=== PATIENT | female | born 1960 | race Caucasian/White ===

== ENCOUNTER 2019-11-11 12:40 | Outpatient (CLI) | payer SELFPAY ==
--- NOTE | 2019-11-11 12:49 | MR_ITS ---
WS: [id number] MRI right elbow, noncontrast. HISTORY: Pain RIGHT upper arm. Injury 4 years ago. COMPARISON: RIGHT elbow radiograph 10/22/2012. Multiplanar, multisequence imaging is performed of the RIGHT elbow. No marrow signal abnormalities are identified. No significant joint space narrowing. There is a very tiny amount of increased signal in the distal brachialis muscle and tendon at the ulnar tubercle. No complete tear. There is no joint effusion. No muscle atrophy or edema. MR/MR elbow RT wo con* [id number] IMPRESSION: Very mild brachialis tendinitis. No marrow edema or fracture.
== END 2019-11-11 12:41 | disposition home or self-care (01) ==
LOC: RADWPI 12:45
PROVIDERS: Family Provider Family Medicine; PCP Nurse Practitioner Family; Visit Provider Nurse Practitioner Family
DX: M79.621 Pain in right upper arm (principal); M77.8 Other enthesopathies, not elsewhere classified
CPT/HCPCS: 73221

== ENCOUNTER → 2020-01-16 11:45 | Outpatient (BNVA) | payer SELFPAY | PROVIDERS: Family Provider Family Medicine; PCP Nurse Practitioner Family; Visit Provider Nurse Practitioner | DX: M54.9 Dorsalgia, unspecified (principal); R31.9 Hematuria, unspecified | CPT/HCPCS: 80053; 81000 ==

== ENCOUNTER → 2020-04-18 11:07 | Outpatient (BNVA) | payer SELFPAY | PROVIDERS: Family Provider Family Medicine; PCP Nurse Practitioner Family; Visit Provider Family Medicine | DX: I10 Essential (primary) hypertension (principal); R53.83 Other fatigue | CPT/HCPCS: 80053; 80061; 82607; 82652; 84443; 85025 ==

== ENCOUNTER 2020-06-19 00:44 | Inpatient (IN) | payer MEDICAID, SELFPAY ==
[2020-06-19] VITALS (69 sets, daily range): BP systolic 75–110; BP diastolic 45–85; PULSE 16–116; RESP 16–99; TEMP 36.4–37.2; O2SAT 84–98; BMI 22.4
--- NOTE | 2020-06-19 01:10 | ECG_ITS ---
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 Measurements Intervals [place] Rate: 108 P: 56 [place]: 146 QRS: -40 QRSD: 155 T: 100 QT: 394 QTc: 530 Interpretive Statements SINUS TACHYCARDIA POSSIBLE LEFT ATRIAL ENLARGEMENT [-0.1mV P WAVE IN V1/V2] LEFT AXIS DEVIATION [QRS AXIS < -30] LEFT BUNDLE BRANCH BLOCK [120+ ms QRS DURATION, 80+ ms Q/S IN V1/V2, 85+ ms R IN I/aVL/V5/V6] No previous ECG available for comparison Electronically Signed On 06-19-2020 13:31:02 CDT by Doroteo Kelly M.D. [email or web address] [email or web address] [email or web address].[email or web address]/[id number] f
--- NOTE | 2020-06-19 01:10 | XR_ITS ---
WS: [id number] EXAM: AP CHEST: PORTABLE UPRIGHT DATE OF EXAM: 06/19/2020, 0120 hours COMPARISON: Chest x-ray from 12/14/2014. HISTORY: Patient is 59 years old with hysterectomy 2 weeks ago. Complaining of swelling in the legs with short ness of breath. FINDINGS: The cardiac silhouette is hard to determine secondary to basilar infiltrates. Silhouette appears nahomy ewhat enlarged as compared to prior imaging. How much of this has to do with AP technique is uncertai n. The mediastinal contours are normal. The pulmonary vascularity is normal. There are findings of a moderate right pleural effusion with infiltrate/atelectasis right lung base. Some minimal infilt rate/atelectasis left lung base with trace left effusion. No pneumothorax. No acute bony abnormalit y is seen. XR/XR chest 1V portable [id number] IMPRESSION: Interval development of moderate right pleural effusion with right base infiltr ate/compression atelectasis. Some minimal infiltrate/atelectasis left lung base. Interval enlargement of the cardiac silhouette. Question if related to techniqu e versus true enlargement. PA and lateral imaging recommended. If the silhouett e remains enlarged echocardiogram will be recommended to evaluate for possible pericardial effusion.
--- NOTE | 2020-06-19 01:13 | W.ED.GENADLT ---
Documented by User: COREY Epperson 06/19/20 02:56 HPI - General Adult General: Chief complaint: General Medical Stated complaint: swelling in legs Time Seen by Provider: 06/19/20 01:08 History of Present Illness: HPI narrative: Patient is a 59-year-old female who comes to the ED with shortness of breath and bilateral leg edema. Patient has a past medical history of hypertension, pedal edema, constipation and GERD. Patient says lower leg edema and shortness of breath symptoms started approximately 2 weeks ago. She reports feeling chest pain shortness of breath whenever she exerts herself and gets up and moves around. She does not have any chest pain or shortness of breath while sitting. She does endorse feeling shortness of breath when she is laying flat. Edema in the legs has progressed and gotten worse and now she is complaining of having pain in the both right and left lower extremities. She endorses having a loss of appetite and says she has had about a 10 pound weight loss over the past 2 weeks. She is also had some abdominal pain and nausea that has since resolved. Patient feels like she drinks a lot o water throughout the day and feels like she does not urinate that much out. Denies any fever or chills. Patient says she was recently tested for COVID and the test was negative. Associated symptoms: Reports chest pain (on exertion) and dyspnea (On exertion); Deny headache(s), nausea, rash, palpitations or vomiting Review of Systems Const: Reports: change in weight (Patient states she has lost 10 pounds in the last 2 weeks.); Denies: fever(s), chills or fatigue Eyes: Denies: change in vision or eye discomfort ENMT: Denies: throat pain, odynophagia, nasal discharge or nasal congestion Card: Reports: chest pain (on exertion), edema, swelling of feet/ankles, dyspnea on exertion, orthopnea and leg pain with exertion; Denies: palpitations Resp: Reports: dyspnea (On exertion); Denies: productive cough or non-productive cough GI: Denies: abdominal pain, nausea, vomiting, diarrhea, constipation or hematochezia : Denies: flank pain, dysuria or hematuria Musc: Reports: extremity swelling (Bilateral leg swelling.); Denies: neck pain or back pain Skin/Breast: Denies: rash or new lesions Neuro: Denies: headache(s), numbness in extremities or weakness in extremities PFSH ED PFSH: Medical History Chronic GERD H/O pleurisy Hypertension Surgical History H/O: hysterectomy Family History Mother Cancer Hypertension Diabetes Father Hypertension Diabetes Social History Smoking and tobacco status: former smoker Second hand smoke exposure: Yes Alcohol intake: never Physical Exam Const: COMMON NORMALS: patient oriented x3 and alert GENERAL APPEARANCE: cooperative and anxious HENMT: COMMON NORMALS: normocephalic HEAD & SCALP: normocephalic MOUTH: Normal oral and palatal mucosa present THROAT: posterior oropharynx normal and uvula midline Eye: COMMON NORMALS: Equal, round and reactive pupils present PUPIL: Yes Equal, round and reactive pupils present Neck/C-Spine: COMMON NORMALS: supple GENERAL: Yes normal visual inspection Resp: COMMON NORMALS: normal respiratory effort, No retractions and No use of accessory muscles AUSCULTATION: breath sounds absent on the right (base) OTHER: Absent breath sounds in lower right lobe of the lung. All other lung high were clear to auscultation bilaterally. Cardio: COMMON NORMALS: regular rhythm, S1 normal heart sound present, S2 normal heart sound present, No gallops present (Cardio), No clicks present (Cardio), No murmurs present (Cardio) and Peripheral pulses 2+ throughout RATE: tachycardic RHYTHM: regular rhythm HEART SOUNDS: S1 normal heart sound present and S2 normal heart sound present PERIPHERAL PULSES: Peripheral pulses 2+ throughout GI: COMMON NORMALS: Normal to inspection, nondistended, normoactive bowel sounds present, Soft to palpation, non-tender and no masses PALPATION: Yes Soft to palpation : COMMON NORMALS: Yes no CVA tenderness BLADDER/KIDNEY EXAM: Yes no CVA tenderness Back/Pelvis: COMMON NORMALS: no CVA tenderness Extremity: NARRATIVE EXTREMITY EXAM: Patient also has tenderness to palpation around the ankle and lower leg bilaterally. Pedal pulse 2+. GENERAL: Yes edema (Bilateral 1+ pitting edema starts at about the foot and goes all the way up to just below the knee on both lower extremities.) Neuro: COMMON NORMALS: patient oriented x3 and moves all extremities SENSORIUM/ORIENTATION: Yes alert Skin: COMMON NORMALS: no rashes or lesions noted GENERAL SKIN EXAM: no rashes or lesions noted and dry skin Course Vital Signs: Vital signs: Vital Signs Temperature 98.1 F 06/19/20 00:56 Pulse Rate 96 06/19/20 02:53 Respiratory Rate 22 H 06/19/20 02:53 Blood Pressure 98/69 06/19/20 02:53 Pulse Oximetry 94 06/19/20 02:53 MDM - General Adult MDM Narrative: Medical decision making narrative: I performed the initial history and physical exam and work-up for patient. I am handing patient care over to Dr. Virk and he will be taking over management and care plan of patient. Lab Data: Attestation: I reviewed the patient's lab results. Labs: Lab Results 06/19/20 06/19/20 06/19/20 Range/Units 01:30 01:30 01:30 WBC 9.0 (4.0-10.0) 10^3/ uL RBC 5.33 H (4.1-5.3) 10^6/u L Hgb 13.7 (11.5-15.3) g/dL Hct 43.5 (37.0-47.0) % MCV 81.6 (81-99) fL MCH 25.7 L (28.0-34.0) pg MCHC 31.5 (30.0-36.0) g/dL RDW 18.4 H (12.1-15.1) % Plt Count 225 (130-400) 10^3/c mm MPV 11.0 H (7.4-10.4) fL Neut % (Auto) 65.7 % Lymph % (Auto) 26.7 % [place] % (Auto) 6.4 % Eos % (Auto) 0.4 % Baso % (Auto) 0.6 % Neut # (Auto) 5.89 (1.8-7.7) 10^3/u L Lymph # (Auto) 2.4 (0.8-4.8) 10^3/u L [place] # (Auto) 0.6 (0.2-0.9) 10^3/u L Eos # (Auto) 0.0 (0.0-0.8) 10^3/u L Baso # (Auto) 0.1 (0.0-0.1) 10^3/u L Nucleated RBC % (a uto) 0 % Nucleated RBCs # 0.0 /100WBC D-Dimer (0-0.59) ug/mIFE U Sodium 136 (136-145) mmol/L Potassium 4.5 (3.5-5.1) mmol/L Chloride 101 (98-107) mmol/L Carbon Dioxide 20 L (22-29) mmol/L Anion Gap 19.5 H (5-19) BUN 27 H (6-20) mg/dL Creatinine 0.9 (0.5-0.9) mg/dL GFR Calculation 64.1 L (90-130) mL/min Glucose 133 H (65-115) mg/dL Calculated Osmolal ity 281 L (285-295) mOsm/k g Calcium 8.9 (8.5-10.5) mg/dL Total Bilirubin 1.2 (0.15-1.2) mg/dL AST 36 H (0-32) U/L ALT 31 (0-33) U/L Alkaline Phosphata se 54 (35-105) IU/L Troponin T Baselin e 28 H (0-10) ng/L NT-Pro-B Natriuret Pep 50140 H (0-125) pg/mL Total Protein 7.0 (6.6-8.7) g/dL Albumin 4.3 (3.5-5.2) g/dL Globulin 2.7 (1.3-4.6) g/dL Lipase 16 (13-60) U/L 06/19/20 Range/Units 01:30 WBC (4.0-10.0) 10^3/ uL RBC (4.1-5.3) 10^6/u L Hgb (11.5-15.3) g/dL Hct (37.0-47.0) % MCV (81-99) fL MCH (28.0-34.0) pg MCHC (30.0-36.0) g/dL RDW (12.1-15.1) % Plt Count (130-400) 10^3/c mm MPV (7.4-10.4) fL Neut % (Auto) % Lymph % (Auto) % [place] % (Auto) % Eos % (Auto) % Baso % (Auto) % Neut # (Auto) (1.8-7.7) 10^3/u L Lymph # (Auto) (0.8-4.8) 10^3/u L [place] # (Auto) (0.2-0.9) 10^3/u L Eos # (Auto) (0.0-0.8) 10^3/u L Baso # (Auto) (0.0-0.1) 10^3/u L Nucleated RBC % (a uto) % Nucleated RBCs # /100WBC D-Dimer 3.31 H (0-0.59) ug/mIFE U Sodium (136-145) mmol/L Potassium (3.5-5.1) mmol/L Chloride (98-107) mmol/L Carbon Dioxide (22-29) mmol/L Anion Gap (5-19) BUN (6-20) mg/dL Creatinine (0.5-0.9) mg/dL GFR Calculation (90-130) mL/min Glucose (65-115) mg/dL Calculated Osmolal ity (285-295) mOsm/k g Calcium (8.5-10.5) mg/dL Total Bilirubin (0.15-1.2) mg/dL AST (0-32) U/L ALT (0-33) U/L Alkaline Phosphata se (35-105) IU/L Troponin T Baselin e (0-10) ng/L NT-Pro-B Natriuret Pep (0-125) pg/mL Total Protein (6.6-8.7) g/dL Albumin (3.5-5.2) g/dL Globulin (1.3-4.6) g/dL Lipase (13-60) U/L Imaging Data^: CXR: Attestation: I personally reviewed and interpreted this imaging study as follows: My impression: Chest x-ray shows right lower lobe along pleural effusion. Pending final radiology report. EKG Data^: EKG 1: Attestation: I personally reviewed and interpreted this EKG as follows: EKG interpretation date: 06/19/20 Interpretation: Sinus tachycardia, 108 bpm, no ST segment elevation or depression seen. left atrial enlargement in V1. Possible left bundle branch block. Computer generated interpretation: Chest CTA 06/19/20 02:44 IMPRESSION: 1. No large central pulmonary embolus. Evaluation of the more distal branches is limited by inadequate opacification/streak artifact. 2. Severe cardiomegaly. 3. Large right and small left pleural effusions. Compressive atelectasis or consolidation noted in the right lower lobe. 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 Exam Comprehensive Documented by User: Bryce Virk MD 06/19/20 04:13 HPI - General Adult General: Chief complaint: General Medical Stated complaint: swelling in legs Time Seen by Provider: 06/19/20 01:08 [facility] ED PFSH: Medical History Chronic GERD H/O pleurisy Hypertension Surgical History H/O: hysterectomy Family History Mother Cancer Hypertension Diabetes Father Hypertension Diabetes Social History Smoking and tobacco status: former smoker Second hand smoke exposure: Yes Alcohol intake: never Course Vital Signs: Vital signs: Vital Signs Temperature 98.1 F 06/19/20 00:56 Pulse Rate 96 06/19/20 02:53 Respiratory Rate 22 H 06/19/20 02:53 Blood Pressure 98/69 06/19/20 02:53 Pulse Oximetry 94 06/19/20 02:53 MDM - General Adult MDM Narrative: Medical decision making narrative: I saw patient with midlevel and agree with his history and physical. Patient presents here with shortness of breath is found to have large pleural effusion also with CHF. Patient started on IV antibiotics. Patient is requiring 2 L of oxygen here. Will give Lasix as well and I spoke to hospitalist will admit. Lab Data: Labs: Lab Results 06/19/20 06/19/20 06/19/20 Range/Units 01:30 01:30 01:30 WBC 9.0 (4.0-10.0) 10^3/ uL RBC 5.33 H (4.1-5.3) 10^6/u L Hgb 13.7 (11.5-15.3) g/dL Hct 43.5 (37.0-47.0) % MCV 81.6 (81-99) fL MCH 25.7 L (28.0-34.0) pg MCHC 31.5 (30.0-36.0) g/dL RDW 18.4 H (12.1-15.1) % Plt Count 225 (130-400) 10^3/c mm MPV 11.0 H (7.4-10.4) fL Neut % (Auto) 65.7 % Lymph % (Auto) 26.7 % [place] % (Auto) 6.4 % Eos % (Auto) 0.4 % Baso % (Auto) 0.6 % Neut # (Auto) 5.89 (1.8-7.7) 10^3/u L Lymph # (Auto) 2.4 (0.8-4.8) 10^3/u L [place] # (Auto) 0.6 (0.2-0.9) 10^3/u L Eos # (Auto) 0.0 (0.0-0.8) 10^3/u L Baso # (Auto) 0.1 (0.0-0.1) 10^3/u L Nucleated RBC % (a uto) 0 % Nucleated RBCs # 0.0 /100WBC D-Dimer (0-0.59) ug/mIFE U Sodium 136 (136-145) mmol/L Potassium 4.5 (3.5-5.1) mmol/L Chloride 101 (98-107) mmol/L Carbon Dioxide 20 L (22-29) mmol/L Anion Gap 19.5 H (5-19) BUN 27 H (6-20) mg/dL Creatinine 0.9 (0.5-0.9) mg/dL GFR Calculation 64.1 L (90-130) mL/min Glucose 133 H (65-115) mg/dL Calculated Osmolal ity 281 L (285-295) mOsm/k g Calcium 8.9 (8.5-10.5) mg/dL Total Bilirubin 1.2 (0.15-1.2) mg/dL AST 36 H (0-32) U/L ALT 31 (0-33) U/L Alkaline Phosphata se 54 (35-105) IU/L Troponin T Baselin e 28 H (0-10) ng/L NT-Pro-B Natriuret Pep 70378 H (0-125) pg/mL Total Protein 7.0 (6.6-8.7) g/dL Albumin 4.3 (3.5-5.2) g/dL Globulin 2.7 (1.3-4.6) g/dL Lipase 16 (13-60) U/L 06/19/20 Range/Units 01:30 WBC (4.0-10.0) 10^3/ uL RBC (4.1-5.3) 10^6/u L Hgb (11.5-15.3) g/dL Hct (37.0-47.0) % MCV (81-99) fL MCH (28.0-34.0) pg MCHC (30.0-36.0) g/dL RDW (12.1-15.1) % Plt Count (130-400) 10^3/c mm MPV (7.4-10.4) fL Neut % (Auto) % Lymph % (Auto) % [place] % (Auto) % Eos % (Auto) % Baso % (Auto) % Neut # (Auto) (1.8-7.7) 10^3/u L Lymph # (Auto) (0.8-4.8) 10^3/u L [place] # (Auto) (0.2-0.9) 10^3/u L Eos # (Auto) (0.0-0.8) 10^3/u L Baso # (Auto) (0.0-0.1) 10^3/u L Nucleated RBC % (a uto) % Nucleated RBCs # /100WBC D-Dimer 3.31 H (0-0.59) ug/mIFE U Sodium (136-145) mmol/L Potassium (3.5-5.1) mmol/L Chloride (98-107) mmol/L Carbon Dioxide (22-29) mmol/L Anion Gap (5-19) BUN (6-20) mg/dL Creatinine (0.5-0.9) mg/dL GFR Calculation (90-130) mL/min Glucose (65-115) mg/dL Calculated Osmolal ity (285-295) mOsm/k g Calcium (8.5-10.5) mg/dL Total Bilirubin (0.15-1.2) mg/dL AST (0-32) U/L ALT (0-33) U/L Alkaline Phosphata se (35-105) IU/L Troponin T Baselin e (0-10) ng/L NT-Pro-B Natriuret Pep (0-125) pg/mL Total Protein (6.6-8.7) g/dL Albumin (3.5-5.2) g/dL Globulin (1.3-4.6) g/dL Lipase (13-60) U/L Imaging Data^: CT Chest: Radiologist's impression: [address] [address] [address] Scan Report Signed Patient: Elizabeth Wright Unit #: [id number] : 1960 Age/Sex: 59 / F ADM Date: 06/19/20 Loc: ER Room/Bed: Attending Dr: Ordering Provider/Ordering MD: Bryce Virk MD Date of Service: 06/19/20 Procedure(s): CT angio chest PE protcl [id number] Accession Number(s): [id number] Report Number: [id number] PROCEDURE INFORMATION: Exam: CT Angiography Chest With Contrast Exam date and time: 06/19/2020 2:57 AM Age: 59 years old Clinical indication: Shortness of breath; Additional info: SOB TECHNIQUE: Imaging protocol: Computed tomographic angiography of the chest with intravenous contrast. 3D rendering: MIP and/or 3D reconstructed images were created by the technologist. Radiation optimization: All CT scans at this facility use at least one of these dose optimization techniques: automated exposure control; mA and/or kV adjustment per patient size (includes targeted exams where dose is matched to clinical indication); or iterative reconstruction. Contrast material: OMNI 350; Contrast volume: 95 ml; Contrast route: INTRAVENOUS (IV); COMPARISON: CR XR chest 1V portable [id number] 06/19/2020 1:19 AM RADIATION DOSE METRICS: Total DLP (mGy-cm): 441.7 FINDINGS: Pulmonary arteries: No large central pulmonary embolus. Evaluation of the more distal branches is limited by inadequate opacification/streak artifact. Aorta: No aortic aneurysm. Evaluation for dissection limited given the lack of significant enhancement of the aorta. Lungs: There is consolidation noted in the right lower lobe. Atelectatic changes the left lung base. Pleural space: Large right pleural effusion. Small left pleural effusion. Heart: Severe cardiomegaly. Lymph nodes: Unremarkable. No enlarged lymph nodes. Bones/joints: Unremarkable. No acute fracture. Soft tissues: Unremarkable. CT/CT angio chest PE protcl [id number] IMPRESSION: 1. No large central pulmonary embolus. Evaluation of the more distal branches is limited by inadequate opacification/streak artifact. 2. Severe cardiomegaly. 3. Large right and small left pleural effusions. Compressive atelectasis or consolidation noted in the right lower lobe. EKG Data^: EKG 1: Computer generated interpretation: Chest CTA 06/19/20 02:44 IMPRESSION: 1. No large central pulmonary embolus. Evaluation of the more distal branches is limited by inadequate opacification/streak artifact. 2. Severe cardiomegaly. 3. Large right and small left pleural effusions. Compressive atelectasis or consolidation noted in the right lower lobe. Radiation Dose CTDIVOL = (mGy): DLP = 441.7 (mGy-cm) Discharge Plan Discharge Patient Disposition: Admitted As Inpatient Clinical Impression: Pleural effusion, CHF (congestive heart failure) Condition: Stable Referrals: Leatha Diams MD [Primary Care Provider] - Coding Level of Care Code ED Arch Cushion Press Operator for Chg Fwd Exam Comprehensive
--- NOTE | 2020-06-19 01:35 | PC.NURSE ---
D/t Patient's bilateral leg swelling the 1 Liter of NS has been held at this time.
--- NOTE | 2020-06-19 01:39 | USCV_ITS ---
Elizabeth Wright Age: 59 Gender: F : 1960 Exam Date: 06/19/2020 03:16 Ordering Phys: Sean Maldonado Technologist: Bryant Childs [place] [facility] [place]: BILAT EDEMA HISTORY: Lower extremity edema. PROCEDURES: The venous duplex Doppler examination of both lower extremities was performed in the standard fashion. FINDINGS: Normal 2-D Doppler and augmentation and compressibility throughout the lower extremity venous structures. Additional imaging through the proximal calf veins also reveals no thrombus. Limited evaluation of the greater saphenous vein is patent with no thrombus. CONCLUSIONS No DVT bilateral lower extremities. Dr. Lexy Soto DO (Electronically Signed) Final Date: 19 June 2020 10:45 S
--- NOTE | 2020-06-19 01:39 | PC.NURSE ---
Patient appears very tearful and anxious. She jumps whenever medical staff touch the patient even though the staff describe/explain what will take place. Patient cries out and screams frequently. Attempted to comfort patient using a soothing voice, lights dimmed for relaxation.
[2020-06-19] MEDS: LORazepam 2 mg/mL INJ 1 mL 1 MG IVP (01:51)
--- NOTE | 2020-06-19 01:53 | PC.NURSE ---
Patient reports having bilateral leg swelling for the past few weeks. States she has had a difficulty breathing, N/V, fatigue, dyspnea on exertion. Patient denies a cough/fever. Patient also reports having back pain.
--- NOTE | 2020-06-19 02:09 | PC.NURSE ---
Patient appears to be resting more comfortably after receiving 1mg of Ativan. Warm blankets were provided for comfort. Lights remained dimmed to promote calm environment. Call light remains within patient's reach attached to the side rail of the bed.
[2020-06-19 02:20] LABS: Basophils # 0.1 10^3/uL (0.0-0.1); Basophils % 0.6 %; Eosinophils % 0.4 %; Hematocrit 43.5 % (37.0-47.0); Hemoglobin 13.7 g/dL (11.5-15.3); Lymphocytes # 2.4 10^3/uL (0.8-4.8); Lymphocytes % 26.7 %; Mean Corpuscular HGB Conc 31.5 g/dL (30.0-36.0); Mean Corpuscular Hemoglobin 25.7 pg (28.0-34.0); Mean Corpuscular Volume 81.6 fL (81-99); Monocytes # 0.6 10^3/uL (0.2-0.9); Monocytes % 6.4 %; Neutrophils # 5.89 10^3/uL (1.8-7.7); Neutrophils % 65.7 %; Nucleated Red Blood Cells % 0 %; Platelet Count 225 10^3/cmm (130-400); Red Blood Count 5.33 10^6/uL (4.1-5.3); Red Cell Distribution Width 18.4 % (12.1-15.1)
[2020-06-19 02:41] LABS: D Dimer 3.31 ug/mIFEU (0-0.59)
[2020-06-19 02:44] LABS: Troponin(5th) Baseline 28 ng/L (0-10)
--- NOTE | 2020-06-19 02:44 | CTR_ITS ---
PROCEDURE INFORMATION: Exam: CT Angiography Chest With Contrast Exam date and time: 06/19/2020 2:57 AM Age: 59 years old Clinical indication: Shortness of breath; Additional info: SOB TECHNIQUE: Imaging protocol: Computed tomographic angiography of the chest with intravenous contrast. 3D rendering: MIP and/or 3D reconstructed images were created by the technologist. Radiation optimization: All CT scans at this facility use at least one of these dose optimization techniques: automated exposure control; mA and/or kV adjustment per patient size (includes targeted exams where dose is matched to clinical indication); or iterative reconstruction. Contrast material: OMNI 350; Contrast volume: 95 ml; Contrast route: INTRAVENOUS (IV); COMPARISON: CR XR chest 1V portable [id number] 06/19/2020 1:19 AM RADIATION DOSE METRICS: Total DLP (mGy-cm): 441.7 FINDINGS: Pulmonary arteries: No large central pulmonary embolus. Evaluation of the more distal branches is limited by inadequate opacification/streak artifact. Aorta: No aortic aneurysm. Evaluation for dissection limited given the lack of significant enhancement of the aorta. Lungs: There is consolidation noted in the right lower lobe. Atelectatic changes the left lung base. Pleural space: Large right pleural effusion. Small left pleural effusion. Heart: Severe cardiomegaly. Lymph nodes: Unremarkable. No enlarged lymph nodes. Bones/joints: Unremarkable. No acute fracture. Soft tissues: Unremarkable. CT/CT angio chest PE protcl [id number] IMPRESSION: 1. No large central pulmonary embolus. Evaluation of the more distal branches is limited by inadequate opacification/streak artifact. 2. Severe cardiomegaly. 3. Large right and small left pleural effusions. Compressive atelectasis or consolidation noted in the right lower lobe. Radiation Dose CTDIVOL = (mGy): DLP = 441.7 (mGy-cm)
[2020-06-19 02:53] LABS: Alanine Aminotransferase 31 U/L (0-33); Albumin Level 4.3 g/dL (3.5-5.2); Alkaline Phosphatase 54 IU/L (35-105); Blood Urea Nitrogen 27 mg/dL (6-20); Calcium 8.9 mg/dL (8.5-10.5); Carbon Dioxide 20 mmol/L (22-29); Chloride 101 mmol/L (98-107); Globulin 2.7 g/dL (1.3-4.6); Glomerular Filtration Rate 64.1 mL/min (90-130); Glucose 133 mg/dL (65-115); Lipase 16 U/L (13-60); NT Pro B Type Natriuretic Pept 17684 pg/mL (0-125); Osmolality Calculated 281 mOsm/kg (285-295); Sodium 136 mmol/L (136-145); Total Bilirubin 1.2 mg/dL (0.15-1.2)
[2020-06-19 03:10] LABS: Anion Gap 19.5 (5-19); Aspartate Amino Transferase 36 U/L (0-32); Potassium 4.5 mmol/L (3.5-5.1)
--- NOTE | 2020-06-19 03:10 | ECG_ITS ---
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 Measurements Intervals [place] Rate: 97 P: -4 MS: 151 QRS: 132 QRSD: 160 T: -31 QT: 417 QTc: 530 Interpretive Statements SINUS RHYTHM INTRAVENTRICULAR CONDUCTION DELAY [130+ ms QRS DURATION] Compared to ECG 06/19/2020 01:12:42 Intraventricular conduction delay now present Sinus tachycardia no longer present Left-axis deviation no longer present Left bundle-branch block no longer present Electronically Signed On 06-19-2020 18:10:43 CDT by Doroteo Kelly M.D. [id number]
[2020-06-19] MEDS: iohexol 350 mg/mL 100 mL Btl IV (03:45)
[2020-06-19] MEDS: FUROsemide 10 mg/mL SDV 10mL 60 MG IVP (03:59)
--- NOTE | 2020-06-19 04:00 | PC.NURSE ---
Awoke patient for repeat troponin level. Patient states, I'm in so much pain I can't sleep. Informed the patient that Dr. Virk would have to order the pain medications. Will inform the MD of patient's request.
--- NOTE | 2020-06-19 04:16 | PC.NURSE ---
Addendum entered by Nuha Pierce 06/19/20 04:18: Unable to obtain urine sample as patient was in a bedolla to use the commode. Will attempt to capture another sample. Original Note: Assisted patient to a bedside commode.
[2020-06-19] MEDS: cefTRIAXone 1,000 MG in sodium chloride 0.9% (plus) 50 ML 100 MG IV (04:33)
--- NOTE | 2020-06-19 04:36 | PM.HP ---
Providers/Chief Complaint Primary Care Provider: Leatha Dimas MD Chief Complaint: swelling in legs History of Present Illness Elizabeth Wright is a 59 year old female who does not carry a previous history of congestive heart failure came in today with worsening leg swelling and shortness of breath. Patient is stating that for last 6 to 8 weeks she has been experiencing leg swelling which has gotten worse to the point that she is not able to manage her daily activities, before May she was managing to take care of her nephew and who did special assistance. She is not able to take care of them anymore, she was ruled out for COVID in May, since then she has been having myalgias, she is experiencing lethargy, fatigue, generalized body weakness. She is denying chest pain, cough, fever, sputum production palpitations, dysuria but is endorsing alternating pattern of diarrhea, constipation, orthopnea, PND shortness of breath on mild activities. Patient stated that she went to a massage parlor because she was so lethargic and thought massage would help her symptoms but that was not the case. Diagnosis in the ER revealed new onset CHF, CTA was done which ruled out PE but showed large right-sided pleural effusion and possible right lower lobe pneumonia, I have requested COVID antigen along with influenza panel because of her myalgia She is currently requiring 2 L of nasal cannula to keep her saturation above 90% High BNP I have requested pro calcitonin, CRP, Legionella and bacterial antigen Patient has received 60 mg of Lasix in the ER after getting normal saline fluid Review of Systems Const: Reports: chills, body aches, fatigue and malaise; Denies: fever(s) Eyes: Denies: change in vision ENMT: Denies: throat pain Card: Reports: edema, swelling of feet/ankles, dyspnea on exertion and orthopnea; Denies: chest pain Resp: Reports: dyspnea; Denies: productive cough or non-productive cough GI: Reports: diarrhea and constipation; Denies: abdominal pain, nausea or vomiting : Denies: flank pain Musc: Reports: muscle cramps Skin/Breast: Denies: rash Neuro: Reports: weakness in extremities; Denies: headache(s) Psych: Reports: irritability Endo: Denies: polyuria Sacha/Lymph: Denies: easy bruising All/Imm: Denies: urticaria Medications/Allergies Home Medications Medication Instructions Recorded Confirmed Last Taken Type albuterol sulfate 90 mcg/actuation 2 puff INHALATION Q6H PRN 01/16/20 04/18/20 Unknown History aerosol inhaler docusate sodium 100 mg capsule 100 mg PO DAILY 30 Days #30 cap 04/18/20 04/18/20 Unknown Rx hydrochlorothiazide 25 mg tablet 25 mg PO QAM 30 Days #30 tab 04/18/20 04/18/20 Unknown Rx pantoprazole 20 mg tablet,delayed 20 mg PO DAILY 30 Days #30 tab 04/18/20 04/18/20 Unknown Rx release Allergies Allergy/AdvReac Type Severity Reaction Status Date / Time ketorolac [From Toradol] Allergy vomit Verified 06/19/20 01:01 Opioids - Morphine Analogues Allergy drops Verified 06/19/20 01:01 blood pressure PFSH Acute PFSH: Medical History Abnormal endoscopy of upper gastrointestinal tract Chronic GERD H/O pleurisy Hypertension Surgical History H/O: hysterectomy Hx of cholecystectomy Family History Mother Cancer Hypertension Diabetes Father Hypertension Diabetes Social History Smoking and tobacco status: former smoker Second hand smoke exposure: Yes Alcohol intake: never Vitals/I&O/Wt Last Vital Signs Temp 98.1 F 06/19/20 00:56 Pulse 97 06/19/20 04:35 Resp 24 H 06/19/20 04:35 BP 110/83 06/19/20 04:35 Pulse Ox 96 06/19/20 04:35 Weight last 48 hrs Weight 57.334 kg Physical Exam Narrative: EXAM NARRATIVE: This is a pleasant female Patient seems very lethargic and fatigued With normal hemodynamics Clinical signs of congestive heart failure, S1, S2, bilateral lower extremity 3+ pitting edema, pedal edema Decreased breath sounds on the right side, no adventitious sounds, no active respiratory distress Neurologically nonfocal exam EOMI, PERRLA Awake alert oriented x3 GCS 15 Abdomen soft, distended, bowel sound present No lower extremity signs of gangrene or ulcer Data : 06/19/20 01:30 06/19/20 01:30 Micro: Microbiology 06/19/20 01:47 Blood Culture - Preliminary Blood SPECIMEN COLLECTED 06/19/20 01:30 Blood Culture - Preliminary Blood SPECIMEN COLLECTED A&P Assessment and plan (1) Pleural effusion: Status: Acute (2) Pedal edema: Status: Acute (3) Hypertension: Status: Acute Qualifiers: Hypertension type: essential hypertension Qualified Code(s): I10 - Essential (primary) hypertension (4) New onset of congestive heart failure: Status: Acute (5) Fatigue: Status: Acute (6) Malaise: Status: Acute (7) Gastritis: Status: Acute Qualifiers: Gastritis type: other gastritis Chronicity: acute Gastritis bleeding: without bleeding Qualified Code(s): K29.00 - Acute gastritis without bleeding Additional A&P Information New onset congestive heart failure No previous diagnosis of CHF, clinical signs of decompensated heart failure Check TSH, PE ruled out, bilateral pleural effusion right greater than left considering her worsening of symptoms and large right-sided pleural effusion I would request ultrasound-guided thoracentesis CT chest shows questionable consolidation in right lower lobe, check urine antigen, COVID ag test, influenza panel ordered, I would start her on ceftriaxone and azithromycin, Echo to see wall motion abnormality, EF and pericardial effusion for acute onset heart failure, backs triad not seen, EKG revealed left bundle branch block, negative delta troponin, BNP 17,000 Would use low-dose Lasix because she would be na?ve to Lasix Acute hypoxic respiratory failure Patient does not use oxygen at home, her symptoms are secondary to CHF exacerbation At the time of my evaluation she was on room air saturating well, in the ED she was requiring 2 L to keep her saturation above 90%, her symptoms improved after getting IV Lasix Gastritis/GERD Continue protonix Fatigue/malaise Would follow-up with TSH, COVID antigen and influenza panel Requested LDH, CRP, procalcitonin Full code Avoid DVT prophylaxis in anticipation of ultrasound-guided thoracentesis, use SCDs Cardiac diet Attestations Medical Necessity Statement*: Considering new onset CHF and acute hypoxic respiratory failure she would require more than 2 midnights in the hospital for evaluation and management Time Spent in Patient Care: 50mins Coding Level of Care Code Acute 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
[2020-06-19 04:46] LABS: Troponin 5 2HR 24.82 ng/L (0-10); Troponin 5 2HR Delta -3.18 ABS# (0-10)
--- NOTE | 2020-06-19 04:50 | PC.NURSE ---
Report called to Kelly ACOSTA in [facility].
--- NOTE | 2020-06-19 05:10 | USCV_ITS ---
Elizabeth Wright Age: 59 Gender: F : 1960 Exam Date: 06/19/2020 09:54 Ordering Phys: Bailee Tijerina MD Technologist: Bryant Childs [place]am [place] [facility] [place]: CHF BP: 105 / 73 HR: 69 Rhythm: Sinus Technical Quality: Good MEASUREMENTS (Male / Female) Normal Values 2D ECHO LV Diastolic Diameter PLAX 6.6 cm 4.2 - 5.9 / 3.9 - 5.3 cm LV Systolic Diameter PLAX 6.5 cm IVS Diastolic Thickness 0.7 cm 0.6 - 1.0 / 0.6 - 0.9 cm IVS Systolic Thickness 0.6 cm LVPW Diastolic Thickness 0.9 cm 0.6 - 1.0 / 0.6 - 0.9 cm LVPW Systolic Thickness 0.9 cm LVOT Diameter 2.0 cm LV Ejection Fraction 2D Teich 5.0 % LV Ejection Fraction MOD 2C 24.6 % LV Ejection Fraction 2C AL 22.1 % LA Diameter 4.0 cm LA Width 4.6 cm LA Height 6.1 cm RA Width 5.0 cm RA Height 4.6 cm Aorta at Sinotubular Diameter 3.6 cm M-MODE LV Diastolic Diameter MM 6.9 cm 4.2 - 5.9 / 3.9 - 5.3 cm LV Systolic Diameter MM 6.2 cm LV Ejection Fraction MM Teich 21.5 % IVS Diastolic Thickness MM 0.6 cm 0.6 - 1.0 / 0.6 - 0.9 cm IVS Systolic Thickness MM 0.9 cm LVPW Diastolic Thickness MM 0.7 cm 0.6 - 1.0 / 0.6 - 0.9 cm LVPW Systolic Thickness MM 1.2 cm RV Diastolic Diameter MM 1.8 cm Aortic Annulus Diameter 3.0 cm LA Ao Ratio MM 1.4 MV E Point Septal Separation 2.8 cm DOPPLER AV Peak Velocity 106.0 cm/s LVOT Peak Velocity 61.0 cm/s AV Area Cont Eq vti 1.8 cm squared AV Area Cont Eq pk 1.8 cm squared MV Area PHT 5.0 cm squared Mitral E to A Ratio 0.8 MV E' Velocity 4.0 cm/s Mitral E to MV E' Ratio 23.2 Mitral E to LV E' Lateral Ratio 17.4 Mitral E to LV E' Septal Ratio 36.6 TR Peak Velocity 312.0 cm/s TR Peak Gradient 38.9 mmHg TV Peak E Velocity 67.0 cm/s Right Atrial Pressure 3.0 mmHg Pulmonary Artery Systolic Pressu 41.9 mmHg PV Peak Velocity 56.0 cm/s FINDINGS Left Ventricle Severely increased left ventricular cavity size. Severely decreased left ventricular systolic function. Left ventricular ejection fraction is estimated at 21 %. Global left ventricular hypokinesis. There appeared to be echogenic shadow in the left ventricle which appears only in certain views cannot rule out left ventricular thrombus, recommend repeating echocardiogram with contrast. Right Ventricle The right ventricle is normal in size and function. Moderate pulmonary hypertension, RVSP 41.9 mmHg. Right Atrium The right atrium is normal in size. Left Atrium Moderately increased left atrial size. Mitral Valve Moderately thickened mitral valve. Severe mitral valve regurgitation. Aortic Valve Aortic valve sclerosis. No aortic valve stenosis. Trace aortic valve regurgitation. Tricuspid Valve Moderate tricuspid valve regurgitation. Pulmonic Valve Structurally normal pulmonic valve without significant stenosis. There is no pulmonic regurgitation. Pericardium Normal pericardium without effusion. Aorta Normal ascending aorta dimension. CONCLUSIONS 1-Severely increased left ventricular cavity size. Severely decreased left ventricular systolic function. Left ventricular ejection fraction is estimated at 21 %. Global left ventricular hypokinesis. There appeared to be echogenic shadow in the left ventricle which appears only in certain views cannot rule out left ventricular thrombus, recommend repeating echocardiogram with contrast. 2-The right ventricle is normal in size and function. Moderate pulmonary hypertension, RVSP 41.9 mmHg. 3-Moderately increased left atrial size. 4-Moderately thickened mitral valve. Severe mitral valve regurgitation. 5-Aortic valve sclerosis. No aortic valve stenosis. Trace aortic valve regurgitation. 6-Moderate tricuspid valve regurgitation. 7-Right atrial pressure is around 5 mm of mercury. 8-There are no prior echocardiogram studies to compare. Bailee Milner MD (Electronically Signed) Final Date: 19 June 2020 18:15 S
[2020-06-19] MEDS: trazodone 50 mg Tablet PO ×2 (05:44→20:23)
[2020-06-19 05:49] LABS: Add Urine Microscopic? NO
[2020-06-19 05:54] LABS: Lactate Dehydrogenase 180 U/L (135-214)
[2020-06-19 06:18] LABS: Procalcitonin 0.07 ng/mL (0-0.5)
[2020-06-19 06:19] LABS: SARS Covid-2 Antigen Negative (Negative)
[2020-06-19 06:19] LABS: Bilirubin Urine Neg (NEGATIVE); Blood Urine Neg (Negative); Glucose Urine UA Norm (Normal); Ketones Urine Negative (Negative); Leukocyte Esterase Urine Negative (Negative); Nitrate Urine Negative (Negative); Protein Urine Neg (Negative); Specific Gravity, Urine 1.005 (1.005-1.030); Urine Appearance Clear (CLEAR); Urine Color Colorless (Yellow); Urobilinogen Urine Norm (Negative); pH Urine 6 (5-7)
--- NOTE | 2020-06-19 06:26 | PC.NURSE ---
Patient received to floor at 0520 via wheelchair. Patient able to ambulate to bed with minimal contact assist. Patient c/o generalized body pain and aches. Reports not sleeping over several days, loss of appetite and a weight loss of 10lb over [address] Tijerina in to see patient. Dr talked to patient regarding pain, heart failure, and thoracentesis procedure for later today. Received verbal order for Trazadone 50mg PO one time.
[2020-06-19 06:28] LABS: C Reactive Protein 10.4 mg/L (0.0-4.9)
--- NOTE | 2020-06-19 07:00 | US_ITS ---
WS: [id number] EXAM: ULTRASOUND MARKING FOR BILATERAL PLEURAL EFFUSIONS DATE OF EXAMINATION: 06/19/2020, 1009 hours COMPARISON: Chest x-ray from the same date. HISTORY: 59-year-old with bilateral pleural effusions. FINDINGS: Ultrasound provided for evaluation for bilateral pleural effusions. Separation by several centimeters of the pleural margins seen on the left proximally 2.7 cm of separation. Massive right effusion is d emonstrated with almost 14 cm of pleural separation. US/US chest [id number] IMPRESSION: Ultrasound evaluation of bilateral pleural effusions prethoracentesis. Consider ed massive on the right and small to moderate on the left.
[2020-06-19 07:03] LABS: Estmated Average Glucose 134; Hemoglobin A1C 6.3 % (4.0-6.0)
--- NOTE | 2020-06-19 07:10 | ECG_ITS ---
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 Measurements Intervals [place] Rate: 98 P: 57 HI: 142 QRS: -53 QRSD: 166 T: 103 QT: 414 QTc: 531 Interpretive Statements SINUS RHYTHM POSSIBLE LEFT ATRIAL ENLARGEMENT [-0.1mV P WAVE IN V1/V2] MARKED LEFT AXIS DEVIATION [QRS AXIS < -30] Interventricular conduction delay Compared to ECG 06/19/2020 03:32:25 Left-axis deviation now present Left bundle-branch block now present Intraventricular conduction delay no longer present Right ventricular hypertrophy no longer present Myocardial infarct finding no longer present Electronically Signed On 06-19-2020 18:06:14 CDT by Doroteo Kelly M.D. [id number]
[2020-06-19] MEDS: docusate sodium 100 mg Capsule PO (08:49)
[2020-06-19] MEDS: pantoprazole DR 40 mg Tablet 20 MG PO (08:49)
[2020-06-19] MEDS: FUROsemide 20 mg Tablet PO (08:49)
[2020-06-19] MEDS: azithromycin 250 mg Tablet 500 MG PO (08:50)
--- NOTE | 2020-06-19 11:20 | PC.CHAP ---
Pastoral Care Encounter/Spiritual Assessment Type of Contact [] Declined silk examiner visit [] Patient/Family/Request visit [] Outpatient visit [] Follow-up visit [] Physician referral [] Code/Alert [x] Routine visit [] Staff referral [] Actively dying [] Patient sleeping [] Family support [] [] Out of room [] Palliative care [] [x] Receiving care in room [] Pre-surgical visit [] Trauma [] Long length of stay [] ICU visit [] Other: Relational/Emotional Strength [x] Patient feels connected with others/family/visitors/staff [] Distress [] Loneliness/isolation [] Abandonment Spirituality of Patient [x] Person of Cristine [] Attends Holiness of their Cristine [x] Believes in Prayer [] Reads Bible or Mormon materials [] There are Spiritual issues to be addressed Real Estate Asset Manager Interventions [x] Prayer [x] Active listening [x] Non-anxious presence [x] Spiritual/emotional support [] Crisis/trauma care [x] Spiritual counseling [] Bereavement support [] Provided bereavement packet [] Provided Bible/devotional materials [] Provided toy/stuffed animal, coloring book to patient or family member [] Provided Communion [] Anointing/Gunter [] Salvation [x] Completed spiritual assessment [] Other: Impact on Illness or Injury [] Angry [] Fearful [] Anxious [] Often cries [] Exhaustion [] Unable to work [] Unable to attend rastafarian [] Unable to walk/stand [] Unable to read [] Unable to drive [] Unable to eat/drink [] Unable to sleep [] Unable to be with family [] Patient intubated [] Other: Summary Heart had procedure, in some and confusion about the healing and recover time has a good attitude Time spent with patient 10 mins
[2020-06-19 11:24] LABS: INR 1.18 (0.8-1.2)
--- NOTE | 2020-06-19 12:00 | PM.CONSULT ---
Providers/Reason For Consult Consulting Physican/Specialty*: Cardiology Reason for Consult*: New onset of heart failure with possible LV dysfunction Attending Physician: Bryant Moreno MD Primary Care Provider: Leatha Dimas MD History of Present Illness History of Present Illness Elizabeth Wright is a 59 year old female past medical history significant for history of [id number] of tobacco abuse quit 8 years ago, history of glucose intolerance, history of hypertension presented with worsening of shortness of breath PND orthopnea and lower extremity edema. She was found to be in decompensated heart failure most likely systolic type. She was also complaining of off-and-on chest pressure which appeared to be atypical. She was ruled out for pulmonary embolism while COVID testing is pending. 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 She has never been diagnosed with CHF, diabetes mellitus, liver or kidney problem before. Review of Systems Const: Reports: chills, body aches, change in weight (Patient states she has lost 10 pounds in the last 2 weeks.), fatigue and malaise; Denies: fever(s) Eyes: Denies: change in vision or eye discomfort ENMT: Denies: throat pain, odynophagia, nasal discharge or nasal congestion Card: Reports: edema, swelling of feet/ankles, dyspnea on exertion, orthopnea and leg pain with exertion; Denies: chest pain or palpitations Resp: Reports: dyspnea; Denies: productive cough or non-productive cough GI: Reports: diarrhea and constipation; Denies: abdominal pain, nausea, vomiting or hematochezia : Denies: flank pain, dysuria or hematuria Musc: Reports: extremity swelling (Bilateral leg swelling.) and muscle cramps; Denies: neck pain or back pain Skin/Breast: Denies: rash or new lesions Neuro: Reports: weakness in extremities; Denies: headache(s) or numbness in extremities Psych: Reports: irritability Endo: Denies: polyuria Sacha/Lymph: Denies: easy bruising All/Imm: Denies: urticaria Meds/Allergies Home Medications and Allergies Home Medications Medication Instructions Recorded Confirmed Last Taken Type albuterol sulfate 90 mcg/actuation 2 puff INHALATION Q6H PRN 01/16/20 06/19/20 Unknown History aerosol inhaler hydrochlorothiazide 25 mg tablet 25 mg PO QAM 30 Days #30 tab 04/18/20 06/19/20 Unknown Rx pantoprazole 20 mg tablet,delayed 20 mg PO DAILY 30 Days #30 tab 04/18/20 06/19/20 Unknown Rx release [id number] carb-vit K 1 tab PO DAILY 06/19/20 06/19/20 Unknown History [Women's Multivitamin] Allergies Allergy/AdvReac Type Severity Reaction Status Date / Time ketorolac [From Toradol] Allergy vomit Verified 06/19/20 01:01 Opioids - Morphine Analogues Allergy drops Verified 06/19/20 01:01 blood pressure tramadol [From Ultram] Allergy Unknown Verified 06/19/20 09:17 Current Medications Current Medications Generic Name Dose Route Start Last Admin Trade Name Freq PRN Reason Stop Dose Admin Aspirin 81 mg 06/19/20 08:55 06/19/20 09:52 Aspirin Ec PO Not Given DAILY MARIKA Azithromycin 500 mg 06/19/20 09:00 06/19/20 08:50 Zithromax PO 500 mg DAILY MARIKA Administration Protocol Docusate Sodium 100 mg 06/19/20 09:00 06/19/20 08:49 Colace PO 100 mg DAILY MARIKA Administration Ceftriaxone Sodium 1,000 mg/ 50 mls @ 100 mls/hr 06/19/20 05:10 06/19/20 05:45 Sodium Chloride IV Not Given Q24H MARIKA Protocol Pantoprazole Sodium 20 mg 06/19/20 09:00 06/19/20 08:49 Protonix PO 20 mg DAILY MARIKA Administration PFSH Acute PFSH: Medical History Abnormal endoscopy of upper gastrointestinal tract Chronic GERD H/O pleurisy Hypertension Surgical History H/O: hysterectomy Hx of cholecystectomy Family History Mother Cancer Hypertension Diabetes Father Hypertension Diabetes Social History Smoking and tobacco status: former smoker Second hand smoke exposure: Yes Alcohol intake: never Dietary Habits: Current diet type/program: regular Caffeine: Yes Exercise: Physical activity functional status: independent ambulation and normal ROM and activity Home Safety: Working smoke detector in home: Yes Personal Safety: Do you feel safe at home: Yes Victim of physical abuse: No Victim of emotional abuse: No Victim of sexual abuse: No Would you like help information on resources?: No Vitals/I&O/Wt Last Vital Signs Temp 97.7 F 06/19/20 11:14 Pulse 100 06/19/20 11:14 Resp 25 H 06/19/20 11:14 BP 93/62 06/19/20 11:14 Pulse Ox 93 06/19/20 11:14 06/18/20 06/19/20 06/19/20 22:59 06:59 14:59 Intake Total 170 / 170 480 / 480 Output Total 700 / 700 1000 / 1000 Balance -530 / -530 -520 / -520 Weight last 48 hrs Weight 126 lb 6.4 oz Physical Exam Narrative: EXAM NARRATIVE: GENERAL: Patient is awake and oriented x3 but appears to be exhausted. Thin lean anc cachectic, NECK: No jugular vein distension. HEENT: No cyanosis. No icterus. No pallor. HEART: Regular S1 and S2. No murmur, rub or gallop. LUNGS: Clear to auscultate bilaterally. ABDOMEN: Soft, nontender and nondistended. Positive bowel sounds. No guarding, rebound or tenderness. CENTRAL NERVOUS SYSTEM: Grossly nonfocal. EXTREMITIES: Lower extremities with 1+ edema bilaterally. Data Micro: Micro: Microbiology 06/19/20 01:47 Blood Culture - Pr eliminary Blood SPECIMEN [facility] 06/19/20 01:30 Blood Culture - Pr eliminary Blood SPECIMEN [facility] A&P Assessment and plan (1) CHF (congestive heart failure): Patient has new onset of acute decompensated heart failure. Medicine already started her on IV Lasix she has adequate urine output. Hopefully we will be able to get -1 L on daily basis. Echocardiogram was performed this morning which is pending will assess structural etiology. Once euvolemic may need left heart cath to distinguish between schema versus nonischemic causes. Once tolerated blood pressure herron and euvolemic will add beta-phillip and FELTON inhibitor. For now continue IV Lasix with 20 mg twice daily or 3 times daily if do not have adequate urine output. We will continue to replenish potassium as well. Further plan will be advised as per progress of the patient. Status: Acute Qualifiers: Heart failure type: systolic Heart failure chronicity: acute Qualified Code(s): I50.21 - Acute systolic (congestive) heart failure (2) Pleural effusion: Most likely secondary to CHF. Hopefully with diuresis it will improve otherwise can be drained. 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
--- NOTE | 2020-06-19 12:19 | P.PN_ITS ---
Subjective Subjective: Interval history: History and physical was reviewed. Patient reports significant shortness of breath over the last 2 weeks associated with orthopnea and lower extremity edema. She reports she had some chest discomfort about 2 weeks ago. Medications: Reviewed: Yes Vitals/I&O/Wt Last Vital Signs Temp 97.7 F 06/19/20 11:14 Pulse 100 06/19/20 11:14 Resp 25 H 06/19/20 11:14 BP 93/62 06/19/20 11:14 Pulse Ox 93 06/19/20 11:14 06/18/20 06/19/20 06/19/20 22:59 06:59 14:59 Intake Total 170 / 170 480 / 480 Output Total 700 / 700 1000 / 1000 Balance -530 / -530 -520 / -520 Weight last 48 hrs Weight 57.334 kg Physical Exam Narrative: EXAM NARRATIVE: General exam no apparent distress Cardiovascular regular rate and rhythm, heart sounds distant Lungs diminished breath sounds bilaterally right greater than left Abdomen is soft with positive bowel sounds Extremities 2+ edema, no cyanosis or clubbing Data : 06/19/20 01:30 06/19/20 01:30 Micro: Microbiology 06/19/20 01:47 Blood Culture - Preliminary Blood SPECIMEN COLLECTED 06/19/20 01:30 Blood Culture - Preliminary Blood SPECIMEN COLLECTED A&P Assessment and plan (1) Pleural effusion: Right pleural effusion, causing significant symptoms of shortness of breath associated with likely very poor heart function. COVID testing negative Continue IV antibiotics for now, Status: Acute (2) New onset of congestive heart failure: Etiology unknown. Acute systolic. Awaiting formal echocardiogram evaluation. Cardiology consulted Aspirin ordered but patient is refusing currently as this occasionally upsets her stomach Check lipid profile IV Lasix 20 mg every 12 hours Consider initiation of beta-phillip and FELTON inhibitor if blood pressure will tolerate TSH checked and normal No evidence of pulmonary embolism on CTA Status: Acute Additional A&P Information Acute hypoxic respiratory failure. Secondary to CHF History of GERD, continue Protonix Full code Lovenox for DVT prophylaxis, following thoracentesis. Attestations Medical Necessity Statement*: Needs continued hospital stay for evaluation of right pleural effusion, new diagnosis of acute systolic heart failure. Coding Level of Care Code Acute Patient Care Associate for Haylee Norris Diagnoses Pleural effusion J90 New onset of congestive heart failure I50.9
[2020-06-19 14:34] LABS: Influenza A by IFA Negative (Negative); Influenza B by IFA Negative (Negative)
--- NOTE | 2020-06-19 14:58 | PC.NURSE ---
THORACENTESIS DR. ANDREW ORDERED THIS MORNING THAT THE PATIENT WAS NOT REQUIRED TO BE NPO FOR HER SCHEDULED THORACENTESIS DESPITE THE [employer] ARCHITECT DISCUSSING THE INSTRUCTIONS FOR NPO INCLUDED IN THE THORACENTESIS ORDER. [employer] ARCHITECT ALSO DISCUSSED THIS WITH PHARMACY ORDER ENTRY TECHNICIAN WHO CONFIRMED WHAT DR. ANDREW HAD ORDERED. THIS AFTERNOON WHEN [facility]TRASOUND ARRIVED TO SET UP THE THORACENTESIS, DR. MARCIAL, INTERVENTIONAL RADIOLOGY, STATED THAT THE PROCEDURE COULD NOT BE DONE UNLESS THE PATIENT WAS NPO AT LEAST 4 HOURS PRIOR TO PROCEDURE. [employer] ARCHITECT CALLED TO INFORM DR. ANDREW THAT THE PROCEDURE COULD NOT BE PERFORMED UNTIL THE MORNING AND THE PATIENT WOULD NEED TO BE MADE NPO AFTER MIDNIGHT. DR. ANDREW ALSO ORDERED TO STOP THE LOVENOX SCHEDULE WELL.
[2020-06-19 17:42] LABS: Troponin 5 6HR 22.47 ng/L (0-10)
[2020-06-19] MEDS: acetaminophen 325 mg Tablet 650 MG PO (18:21)
[2020-06-19 18:35] LABS: Troponin 5 6HR Delta -2.35 ng/L (0-12)
--- NOTE | 2020-06-19 18:42 | USCV_ITS ---
Elizabeth Wright Age: 59 Gender: F : 1960 Exam Date: 06/19/2020 19:51 Ordering Phys: Bailee Milner MD ([email or web address]) Technologist: Stevo Mccabe [place] [facility] [place]: THROMBUS BP: / HR: Rhythm: Sinus Technical Quality: Good MEASUREMENTS (Male / Female) Normal Values FINDINGS Left Ventricle Severely increased left ventricular cavity size. Severely decreased left ventricular systolic function. Left ventricular ejection fraction is estimated at 20 %. Contrast study was performed to rule out LV thrombus it appeared to me that left ventricle mass may represent papillary muscle and left ventricle apical endocardium however cannot rule out completely presence of thrombus. Transesophageal echocardiogram will be better modality to further assess. Right Ventricle Right Atrium Left Atrium Mitral Valve Aortic Valve Tricuspid Valve Pulmonic Valve Pericardium Aorta CONCLUSIONS Please note that this is a limited study with contrast to rule out LV thrombusSeverely increased left ventricular cavity size. Severely decreased left ventricular systolic function. Left ventricular ejection fraction is estimated at 20 %. Contrast study was performed to rule out LV thrombus it appeared to me that left ventricle mass may represent papillary muscle and left ventricle apical endocardium however cannot rule out completely presence of thrombus. Transesophageal echocardiogram will be better modality to further assess. Bailee Milner MD (Electronically Signed) Final Date: 19 June 2020 20:45 S
--- NOTE | 2020-06-19 19:56 | PC.NURSE ---
Patient requesting something to help with sleep. Patient stated, the medicine the doctor gave me this morning worked really well. . Called Dr Tijerina and received order for Trazadone 50mg PO at bedtime PRN. Read back and verified order.
[2020-06-19] MEDS: FUROsemide 10 mg/mL SDV 2mL 20 MG IVP (20:23)
[2020-06-19] MEDS: perflutren protein-a microsphr 0.22 mg/mL SDV 3 mL 2 ML IV (20:23)
--- NOTE | 2020-06-19 20:51 | P.PN_ITS ---
Subjective Subjective: Interval history: Patient has now diuresed well her systolic blood pressure remains into 80s. Echocardiogram showed severely depressed LV function with ejection fraction around 20%. There appeared to be echogenic mass in the left ventricle suspicious for subvalvular apparatus/endocardium versus left ventricle thrombus. Vitals/I&O/Wt Last Vital Signs Temp 98.1 F 06/19/20 19:40 Pulse 106 H 06/19/20 19:40 Resp 28 H 06/19/20 19:40 BP 89/58 06/19/20 19:40 Pulse Ox 91 06/19/20 19:40 06/19/20 06/19/20 06/19/20 06:59 14:59 22:59 Intake Total 170 / 170 720 / 720 480 / 1200 Output Total 700 / 700 1000 / 1000 Balance -530 / -530 -280 / -280 480 / 200 Weight last 48 hrs Weight 126 lb 6.4 oz Data : 06/19/20 01:30 06/19/20 01:30 Micro: Microbiology 06/19/20 01:47 Blood Culture - Preliminary Blood SPECIMEN COLLECTED 06/19/20 01:30 Blood Culture - Preliminary Blood SPECIMEN COLLECTED A&P Assessment and plan (1) Heart failure, systolic, with acute decompensation: Patient continues to be in decompensated systolic heart failure with severely depressed LV function. Systolic blood pressure is in the 80s. She is has not diuresed adequately this evening. I will start her on dobutamine and increase Lasix to 40 mg IV twice a day. Further plan will be advised as per progress of the patient. Status: Acute (2) Hypotension: Cardiogenic due to severely dis-functional LV. Dobutamine will be started. Status: Acute (3) Mass of left cardiac ventricle: Echocardiogram was performed which is suggestive of left ventricular mass suspicious for subvalvular apparatus/left ventricle endocardium versus thrombus. Further exploration with transesophageal echocardiogram is recommended until then we will fully anticoagulate the patient. For now we will hold on to thoracocentesis due to anticoagulation. 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
[2020-06-19] MEDS: enoxaparin 60 mg/0.6 mL Syringe SUBCUT (21:00)
[2020-06-19] MEDS: DOBUTamine drip 500 MG/250 ML PREMIX IV (21:36)
[2020-06-20] VITALS (85 sets, daily range): BP systolic 76–113; BP diastolic 48–77; PULSE 90–119; RESP 16–38; TEMP 36.3–36.8; O2SAT 90–97
--- NOTE | 2020-06-20 00:21 | PC.NURSE ---
late entry, echo done with contrast and read by Dr Milner, lovenox given late per Dr Milner, thoracentesis canceled, pt started on dobutamine gtt for bp support, continue to monitor
[2020-06-20] MEDS: FUROsemide 10 mg/mL SDV 2mL 20 MG IVP (01:34)
[2020-06-20 04:39] LABS: Basophils % 0.3 %; Eosinophils % 0.3 %; Hematocrit 44.3 % (37.0-47.0); Hemoglobin 14.5 g/dL (11.5-15.3); Lymphocytes # 1.4 10^3/uL (0.8-4.8); Mean Corpuscular HGB Conc 32.7 g/dL (30.0-36.0); Mean Corpuscular Hemoglobin 26.5 pg (28.0-34.0); Mean Corpuscular Volume 80.8 fL (81-99); Mean Platelet Volume 10.9 fL (7.4-10.4); Monocytes # 0.7 10^3/uL (0.2-0.9); Monocytes % 6.3 %; Neutrophils % 79.7 %; Nucleated Red Blood Cells % 0 %; Platelet Count 180 10^3/cmm (130-400); Red Blood Count 5.48 10^6/uL (4.1-5.3); Red Cell Distribution Width 18.2 % (12.1-15.1); White Blood Count 10.4 10^3/uL (4.0-10.0)
[2020-06-20 05:01] LABS: Blood Urea Nitrogen 24 mg/dL (6-20); Calcium 8.6 mg/dL (8.5-10.5); Carbon Dioxide 28 mmol/L (22-29); Chloride 93 mmol/L (98-107); Glomerular Filtration Rate 50.8 mL/min (90-130); Glucose 144 mg/dL (65-115); Osmolality Calculated 285 mOsm/kg (285-295); Sodium 138 mmol/L (136-145)
[2020-06-20 05:09] LABS: Anion Gap 20.3 (5-19); Potassium 3.3 mmol/L (3.5-5.1)
[2020-06-20 05:24] LABS: Chol HDL Ratio 4.16 mg/dL (0.0-4.40); Cholesterol 104 mg/dL (0-200); HDL Cholesterol 25 mg/dL (60-100); LDL Cholesterol Calculated 63 mg/dL (50-129); LDL HDL Ratio 2.52 RATIO (0.00-3.22); Triglycerides 78 mg/dL (0-150)
--- NOTE | 2020-06-20 05:45 | PC.NURSE ---
dobutamine gtt infusing, pt refuses 2nd IV site for IV rocephin and requests to take it in pill form instead, Dr Garcia notified, no new orders at this time
[2020-06-20] MEDS: enoxaparin 60 mg/0.6 mL Syringe SUBCUT (06:02)
--- NOTE | 2020-06-20 08:15 | PC.NURSE ---
radiology at bedside for planned procedure thoracentesis vitals stable patient continued dobutamine drip Dr Smalls at bedside at 0818 instructions to order stat chest xray post thora given 0820 time performed patient verbalized name and procedure lidocaine injections started 0825 patient becomes nauseous and begins dry heaving BP is low at this time 0832 procedure stopped due to patient continued nausea Dr smalls reports patient is unstable to proceed 0840 Dr orourke notified zofran orders received verbal instructions to give patient a few hours and try again giving PRN Ativan prior to procedure
[2020-06-20] MEDS: ondansetron 2 mg/ML SDV 2 mL 4 MG IVP (08:41)
--- NOTE | 2020-06-20 08:45 | PC.NURSE ---
Blood culture positive reported to this nurse by lab gram neg rods notified Dr Moreno no new orders given
--- NOTE | 2020-06-20 09:00 | PC.NURSE ---
Dr Moreno at bedside for discussion of POC and assessment ok to hold PO meds at this time due to nausea
--- NOTE | 2020-06-20 10:00 | PC.NURSE ---
Dr waggoner at bedside for assessment and discussion of POC verbal orders to obtain echo with contrast ok'd for patient to eat and take po meds medications given per orders
--- NOTE | 2020-06-20 10:05 | P.PN_ITS ---
Subjective Subjective: Interval history: Elizabeth reports her shortness of breath is better. Her legs are less swollen. No chest discomfort. Cardiology had placed her on anticoagulation for concern of left ventricular thrombus, dobutamine, and increased her IV Lasix last night. Medications: Reviewed: Yes Vitals/I&O/Wt Last Vital Signs Temp 98.2 F 06/20/20 07:07 Pulse 110 H 06/20/20 07:07 Resp 25 H 06/20/20 07:07 BP 99/66 06/20/20 07:07 Pulse Ox 93 06/20/20 07:07 06/19/20 06/20/20 06/20/20 22:59 06:59 14:59 Intake Total 482.938 / 1202.938 68.032 / 1270.970 Output Total 600 / 1600 1200 / 2800 400 / 400 Balance -117.062 / -397.062 -1131.968 / -1529.030 -400 / -400 Weight last 48 hrs Weight 57.334 kg Physical Exam Narrative: EXAM NARRATIVE: General exam no apparent distress Cardiovascular regular rate and rhythm, heart sounds distant Lungs diminished breath sounds bilaterally right greater than left Abdomen is soft with positive bowel sounds Extremities 1+ edema bilaterally Data : 06/20/20 03:41 06/20/20 03:41 Micro: Microbiology 06/19/20 01:47 Blood Culture - Preliminary Blood Gram positive lavon 06/19/20 01:30 Blood Culture - Preliminary Blood NEGATIVE TO DATE A&P Assessment and plan (1) Pleural effusion: Right pleural effusion, causing significant symptoms of shortness of breath associated with likely very poor heart function. COVID testing negative At this point I think the chance of pneumonia is low and will discontinue her IV antibiotics. Note that her procalcitonin level is normal. Status: Acute (2) New onset of congestive heart failure: Etiology unknown. Acute systolic. A ejection fraction approximately 20%. Question thrombus Appreciate cardiology consultation Aspirin ordered but patient is refusing currently as this occasionally upsets he r stomach Check lipid profile Continue IV Lasix 40 mg every 12 hours as well as dobutamine per cardiology Consider initiation of beta-phillip and FELTON inhibitor if blood pressure will tolerate TSH checked and normal No evidence of pulmonary embolism on CTA BMP daily Status: Acute Additional A&P Information Mild hypokalemia. Supplement. Acute hypoxic respiratory failure. Secondary to CHF. Improved History of GERD, continue Protonix. Patient with intermittent dry heaves here whenever she gets upset. Ativan added as needed, to be used mainly for procedures Full code Lovenox f will serve for DVT prophylaxis Attestations Medical Necessity Statement*: Continued hospital stay for diuresis secondary to acute systolic heart failure. Coding Level of Care Code Acute Executive Coordinator for Chg Fwd Diagnoses Pleural effusion J90 New onset of congestive heart failure I50.9
--- NOTE | 2020-06-20 10:05 | USCV_ITS ---
Elizabeth Wright Age: 59 Gender: F : 1960 Exam Date: 06/20/2020 16:07 Ordering Phys: Bailee Milner MD ([email or web address]) Technologist: Fabiola Fuller Exam Location: [facility] – [place] Indication: LV THROMBUS BP: / HR: Rhythm: Sinus Technical Quality: Adequate MEASUREMENTS (Male / Female) Normal Values FINDINGS Left Ventricle Severely increased left ventricular cavity size. Severely decreased left ventricular systolic function. Left ventricular ejection fraction is estimated at 20 %. Global left ventricular hypokinesis. There appeared to be no left ventricle thrombus noted. Suspicious echogenic shadows are most likely subvalvular apparatus such as papillary muscle and thickened endocardium. Right Ventricle Right Atrium Left Atrium Mitral Valve Aortic Valve Tricuspid Valve Pulmonic Valve Pericardium Aorta CONCLUSIONS Severely increased left ventricular cavity size. Severely decreased left ventricular systolic function. Left ventricular ejection fraction is estimated at 20 %. Global left ventricular hypokinesis. There appeared to be no left ventricle thrombus noted. Suspicious echogenic shadows are most likely subvalvular apparatus such as papillary muscle and thickened endocardium. Bailee Milner MD (Electronically Signed) Final Date: 20 June 2020 18:36 S
[2020-06-20] MEDS: pantoprazole DR 40 mg Tablet PO ×2 (10:13→18:26)
[2020-06-20] MEDS: potassium chloride ER 10 mEq Tablet 40 MEQ PO (10:13)
[2020-06-20] MEDS: aspirin 81 mg EC Tablet PO (10:13)
[2020-06-20] MEDS: docusate sodium 100 mg Capsule PO (10:14)
[2020-06-20] MEDS: FUROsemide 10 mg/mL SDV 2mL 40 MG IVP ×2 (10:14→21:17)
--- NOTE | 2020-06-20 12:00 | P.PN_ITS ---
Subjective Subjective: Interval history: Patient started diuresing well after starting on dobutamine last night. She has negative more than liter output. Blood pressure reasonably well. There was suspicion of left ventricle thrombus for which she was anticoagulated. Detail echo with contrast pending Medications: Reviewed: Yes Vitals/I&O/Wt Last Vital Signs Temp 97.7 F 06/20/20 10:45 Pulse 110 H 06/20/20 10:46 Resp 20 H 06/20/20 10:46 BP 103/71 06/20/20 10:45 Pulse Ox 94 06/20/20 10:46 06/19/20 06/20/20 06/20/20 22:59 06:59 14:59 Intake Total 482.938 / 1202.938 68.032 / 1270.970 Output Total 600 / 1600 1200 / 2800 400 / 400 Balance -117.062 / -397.062 -1131.968 / -1529.030 -400 / -400 Weight last 48 hrs Weight 126 lb 6.4 oz Physical Exam Narrative: EXAM NARRATIVE: GENERAL: Patient is awake and oriented x3 but appears to be exhausted. Thin lean anc cachectic, NECK: No jugular vein distension. HEENT: No cyanosis. No icterus. No pallor. HEART: Regular S1 and S2. No murmur, rub or gallop. LUNGS: Clear to auscultate bilaterally. ABDOMEN: Soft, nontender and nondistended. Positive bowel sounds. No guarding, rebound or tenderness. CENTRAL NERVOUS SYSTEM: Grossly nonfocal. EXTREMITIES: Lower extremities with trace edema bilaterally. Data : 06/20/20 03:41 06/20/20 03:41 Micro: Microbiology 06/19/20 01:47 Blood Culture - Preliminary Blood Gram positive lavon 06/19/20 01:30 Blood Culture - Preliminary Blood NEGATIVE TO DATE A&P Assessment and plan (1) Heart failure, systolic, with acute decompensation: Continue current diuresis with IV 40 mg of Lasix twice daily. Continue dobutamine. Status: Acute (2) Hypotension: Cardiogenic due to severely dis-functional LV. Continue dobutamine infusion and IV diuretics. For now hold onto beta-phillip and FELTON inhibitor Status: Acute (3) Mass of left cardiac ventricle: Echocardiogram was performed which is suggestive of left ventricular mass suspicious for subvalvular apparatus/left ventricle endocardium versus thrombus. Last couple of studies were not very optimal I will try to get a four-chamber view with contrast today to rule out thrombus. For now she has been anticoagulated. 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
--- NOTE | 2020-06-20 14:30 | PC.NURSE ---
patient on continued dobuatmine drip with an elevated HR Dr waggoner at bedside instructions given to reduce drip to 2.5 ml/hr and monitor HR
--- NOTE | 2020-06-20 16:20 | PC.NURSE ---
notified Dr Moreno patient has begun to cough up small amounts of bright red blood instructions to hold Lovenox start scds for VTE
[2020-06-20] MEDS: trazodone 50 mg Tablet PO (21:17)
[2020-06-21] VITALS (7 sets, daily range): BP systolic 91–102; BP diastolic 59–72; PULSE 100–109; RESP 18–24; TEMP 36.7; O2SAT 90–98
--- NOTE | 2020-06-21 02:11 | PC.NURSE ---
pt resting in bed with eyes closed, dobutamine gtt infusing at 2.5 mcg to RAC IV, VSS, clwr
[2020-06-21 04:50] LABS: Anion Gap 18.6 (5-19); Blood Urea Nitrogen 21 mg/dL (6-20); Carbon Dioxide 27 mmol/L (22-29); Chloride 93 mmol/L (98-107); Glomerular Filtration Rate 50.8 mL/min (90-130); Glucose 128 mg/dL (65-115); Osmolality Calculated 278 mOsm/kg (285-295); Potassium 3.6 mmol/L (3.5-5.1); Sodium 135 mmol/L (136-145)
[2020-06-21] MEDS: FUROsemide 10 mg/mL SDV 2mL 40 MG IVP ×2 (08:53→20:45)
[2020-06-21] MEDS: aspirin 81 mg EC Tablet PO (08:54)
[2020-06-21] MEDS: docusate sodium 100 mg Capsule PO (08:54)
[2020-06-21] MEDS: pantoprazole DR 40 mg Tablet PO ×2 (08:54→17:45)
[2020-06-21] MEDS: ondansetron 2 mg/ML SDV 2 mL 4 MG IVP ×2 (08:54→17:01)
[2020-06-21] MEDS: levofloxacin-dextrose 5 % 750 MG/150 ML PREMIX 100 MG IV (09:57)
--- NOTE | 2020-06-21 11:50 | P.PN_ITS ---
Subjective Subjective: Interval history: Elizabeth reports her breathing is better. She is able to lie flat. She still has some dry heaves and nausea on occasion. She is occasionally spit up a very small amount of blood. Denies any dysphagia. Medications: Reviewed: Yes Vitals/I&O/Wt Last Vital Signs Temp 98.0 F 06/21/20 07:04 Pulse 104 H 06/21/20 10:50 Resp 21 H 06/21/20 10:50 BP 91/64 06/21/20 10:50 Pulse Ox 96 06/21/20 10:50 06/20/20 06/21/20 06/21/20 22:59 06:59 14:59 Intake Total 452 / 677.233 33 / 710.233 120 / 120 Output Total 600 / 600 Balance 452 / 277.233 33 / 310.233 -480 / -480 Physical Exam Narrative: EXAM NARRATIVE: General exam no apparent distress Cardiovascular regular rate and rhythm, heart sounds distant Lungs diminished breath sounds bilaterally right greater than left Abdomen is soft with positive bowel sounds Extremities no significant edema Data : 06/20/20 03:41 06/21/20 03:20 Micro: Microbiology 06/19/20 01:47 Blood Culture - Preliminary Blood Gram positive lavon A&P Assessment and plan (1) Pleural effusion: Right pleural effusion, causing significant symptoms of shortness of breath associated with likely very poor heart function. COVID testing negative Procalcitonin level was normal. However, patient has significant atelectasis from right pleural effusion, and is now coughing up/spitting up yellow sputum with slight amount of blood. Will continue IV antibiotics for now. She had been intolerant of any attempt to try to perform a thoracentesis for therapeutic purposes. This can still be considered, but for now we are holding off on this. Status: Acute (2) New onset of congestive heart failure: Etiology unknown. Acute systolic. A ejection fraction approximately 20%. No evidence of intracardiac thrombus was noted. Lovenox was discontinued secondary to the patient occasionally spitting up blood. Appreciate cardiology consultation LDL was checked and 63 Currently on Lasix 40 mg IV every 12 hours and dobutamine per cardiology Consider initiation of beta-phillip and FELTON inhibitor if blood pressure will tolerate TSH checked and normal No evidence of pulmonary embolism on CTA BMP daily while diuresing. I suspect her ins and outs for yesterday are not accurate Status: Acute Additional A&P Information Mild hypokalemia. Supplemented Acute hypoxic respiratory failure. Secondary to CHF. Improved History of GERD, continue Protonix. Patient with intermittent dry heaves here whenever she gets upset. Now occasionally will spit up a small amount of blood. Lovenox was discontinued. Aspirin will be discontinued. Ativan added as needed for significant anxiety. May need EGD as outpatient but currently will need to compensated heart failure before considering. Full code SCDs will serve for DVT prophylaxis Attestations Medical Necessity Statement*: Needs continued hospitalization for further diuresis secondary to severe acute systolic heart failure Coding Level of Care Code Acute Site Acquisition Specialist for Chg Fwd Diagnoses Pleural effusion J90 New onset of congestive heart failure I50.9
[2020-06-21] MEDS: promethazine 25 mg/mL SDV 1 mL IM (12:22)
--- NOTE | 2020-06-21 19:51 | P.PN_ITS ---
Subjective Subjective: Interval history: Patient has episode of hemoptysis for which Lovenox was stopped. She continues to diurese well. Blood pressure is slightly improved. She is feeling little better. Medications: Reviewed: Yes Vitals/I&O/Wt Last Vital Signs Temp 98.0 F 06/21/20 14:53 Pulse 100 06/21/20 14:53 Resp 24 H 06/21/20 14:53 BP 92/59 06/21/20 14:53 Pulse Ox 94 06/21/20 14:53 06/21/20 06/21/20 06/21/20 06:59 14:59 22:59 Intake Total 33 / 710.233 340 / 340 240 / 580 Output Total 900 / 900 200 / 1100 Balance 33 / 310.233 -560 / -560 40 / -520 Physical Exam Narrative: EXAM NARRATIVE: GENERAL: Patient is awake and oriented x3 but appears to be exhausted. Thin lean anc cachectic, NECK: No jugular vein distension. HEENT: No cyanosis. No icterus. No pallor. HEART: Regular S1 and S2. No murmur, rub or gallop. LUNGS: Clear to auscultate bilaterally. ABDOMEN: Soft, nontender and nondistended. Positive bowel sounds. No guarding, rebound or tenderness. CENTRAL NERVOUS SYSTEM: Grossly nonfocal. EXTREMITIES: Lower extremities with trace edema bilaterally. Data : 06/20/20 03:41 06/21/20 03:20 Micro: Microbiology 06/19/20 01:47 Blood Culture - Preliminary Blood Bacillus species A&P Assessment and plan (1) Heart failure, systolic, with acute decompensation: Since he is been diuresing reasonably well we will continue dobutamine and IV Lasix. Status: Acute (2) Hypotension: Continue dobutamine blood pressure has been borderline low in 90s systolic. For now continue holding beta-phillip and FELTON inhibitor Status: Acute (3) Mass of left cardiac ventricle: No mass in the left ventricle most likely artifact by subpapillary apparatus and thickened endocardium. 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
[2020-06-21] MEDS: DOBUTamine drip 500 MG/250 ML PREMIX IV (20:42)
[2020-06-21] MEDS: trazodone 50 mg Tablet PO (20:45)
[2020-06-21] MEDS: acetaminophen 325 mg Tablet 650 MG PO (20:45)
[2020-06-21] MEDS: LORazepam 2 mg/mL INJ 1 mL 0.5 MG IVP (20:46)
[2020-06-22] VITALS (7 sets, daily range): BP systolic 83–108; BP diastolic 61–70; PULSE 109–121; RESP 17–23; TEMP 35.6–36.6; O2SAT 92–96
[2020-06-22 05:00] LABS: Basophils % 0.3 %; Eosinophils # 0.1 10^3/uL (0.0-0.8); Hematocrit 45.4 % (37.0-47.0); Hemoglobin 14.3 g/dL (11.5-15.3); Lymphocytes # 1.2 10^3/uL (0.8-4.8); Lymphocytes % 12.2 %; Mean Corpuscular HGB Conc 31.5 g/dL (30.0-36.0); Mean Corpuscular Hemoglobin 26.3 pg (28.0-34.0); Mean Corpuscular Volume 83.6 fL (81-99); Mean Platelet Volume 10.5 fL (7.4-10.4); Monocytes # 0.8 10^3/uL (0.2-0.9); Monocytes % 8.3 %; Neutrophils # 7.89 10^3/uL (1.8-7.7); Neutrophils % 77.8 %; Nucleated Red Blood Cells % 0 %; Platelet Count 201 10^3/cmm (130-400); Red Blood Count 5.43 10^6/uL (4.1-5.3); Red Cell Distribution Width 18.2 % (12.1-15.1); White Blood Count 10.1 10^3/uL (4.0-10.0)
[2020-06-22 05:24] LABS: Anion Gap 16.1 (5-19); Blood Urea Nitrogen 18 mg/dL (6-20); Calcium 9.2 mg/dL (8.5-10.5); Carbon Dioxide 31 mmol/L (22-29); Chloride 93 mmol/L (98-107); Glomerular Filtration Rate 50.8 mL/min (90-130); Glucose 115 mg/dL (65-115); Osmolality Calculated 281 mOsm/kg (285-295); Potassium 3.1 mmol/L (3.5-5.1); Sodium 137 mmol/L (136-145)
[2020-06-22] MEDS: FUROsemide 10 mg/mL SDV 2mL 40 MG IVP ×2 (08:18→21:09)
[2020-06-22] MEDS: potassium chloride ER 10 mEq Tablet 40 MEQ PO ×4 (08:18→23:14)
[2020-06-22] MEDS: pantoprazole DR 40 mg Tablet PO ×2 (08:18→17:46)
[2020-06-22] MEDS: docusate sodium 100 mg Capsule PO (08:19)
--- NOTE | 2020-06-22 12:36 | P.PN_ITS ---
Subjective Subjective: Interval history: Elizabeth feels a little bit better today. No chest pain. Not quite as nauseated. Medications: Reviewed: Yes Vitals/I&O/Wt Last Vital Signs Temp 96.0 F L 06/22/20 08:00 Pulse 110 H 06/22/20 09:25 Resp 20 H 06/22/20 09:25 BP 98/65 06/22/20 08:00 Pulse Ox 92 06/22/20 09:25 06/21/20 06/22/20 06/22/20 22:59 06:59 14:59 Intake Total 606.797 / 1096.797 120 / 1216.797 240 / 240 Output Total 200 / 1100 800 / 1900 Balance 406.797 / -3.203 -680 / -683.203 240 / 240 Physical Exam Narrative: EXAM NARRATIVE: General exam no apparent distress Cardiovascular regular rate and rhythm, heart sounds distant Lungs diminished breath sounds bilaterally right greater than left Abdomen is soft with positive bowel sounds Extremities no significant edema Data : 06/22/20 04:19 06/22/20 04:19 Micro: Microbiology 06/19/20 01:47 Blood Culture - Preliminary Blood Bacillus species A&P Assessment and plan (1) Pleural effusion: Right pleural effusion, causing significant symptoms of shortness of breath associated with likely very poor heart function. COVID testing negative Procalcitonin level was normal. However, patient has significant atelectasis from right pleural effusion, and is now coughing up/spitting up yellow sputum with slight amount of blood. Continue Levaquin currently. She had been intolerant of any attempt to try to perform a thoracentesis for therapeutic purposes. This can still be considered, but for now we are holding off on this. Status: Acute (2) New onset of congestive heart failure: Etiology unknown. Acute systolic. A ejection fraction approximately 20%. No evidence of intracardiac thrombus was noted. Lovenox was discontinued secondary to the patient occasionally spitting up blood. Appreciate cardiology consultation LDL was checked and 63 Currently on Lasix 40 mg IV every 12 hours and dobutamine per cardiology Consider initiation of beta-phillip and FELTON inhibitor if blood pressure will tolerate TSH checked and normal No evidence of pulmonary embolism on CTA BMP daily while diuresing. She diuresed about 300 cc yesterday. Overall she appears to be improving Secondary to her very low EF she is a candidate for a LifeVest Status: Acute Additional A&P Information Mild hypokalemia. Will supplement again Acute hypoxic respiratory failure. Secondary to CHF. She is now on room air History of GERD, continue Protonix. Patient with intermittent dry heaves here w henever she gets upset. Now occasionally will spit up a small amount of blood. Lovenox was discontinued. Aspirin will be discontinued. Ativan added as needed for significant anxiety. May need EGD as outpatient but currently will need to compensated heart failure before considering. Full code SCDs will serve for DVT prophylaxis Attestations Medical Necessity Statement*: Needs continued hospitalization secondary to acute systolic heart failure requiring dobutamine and diuresis. Coding Level of Care Code Acute Lead Warehouse Associate for Haylee Norris Diagnoses Pleural effusion J90 New onset of congestive heart failure I50.9
--- NOTE | 2020-06-22 18:50 | PM.PN ---
Subjective Subjective: Interval history: Patient has not diuresed well last night she is 100+ and last 24 hours. She is little bit frustrated that she would like to go home. Medications: Reviewed: Yes Vitals/I&O/Wt Last Vital Signs Temp 97.7 F 06/22/20 14:55 Pulse 115 H 06/22/20 14:55 Resp 17 06/22/20 14:55 BP 99/68 06/22/20 14:55 Pulse Ox 94 06/22/20 14:55 06/22/20 06/22/20 06/22/20 06:59 14:59 22:59 Intake Total 120 / 1216.797 480 / 480 240 / 720 Output Total 800 / 1900 375 / 375 200 / 575 Balance -680 / -683.203 105 / 105 40 / 145 Physical Exam Narrative: EXAM NARRATIVE: GENERAL: Patient is awake and oriented x3 but appears to be exhausted. Thin lean anc cachectic, NECK: No jugular vein distension. HEENT: No cyanosis. No icterus. No pallor. HEART: Regular S1 and S2. No murmur, rub or gallop. LUNGS: Clear to auscultate bilaterally. ABDOMEN: Soft, nontender and nondistended. Positive bowel sounds. No guarding, rebound or tenderness. CENTRAL NERVOUS SYSTEM: Grossly nonfocal. EXTREMITIES: Lower extremities with trace edema bilaterally. Data : 06/22/20 04:19 06/22/20 04:19 Micro: Microbiology 06/19/20 01:47 Blood Culture - Preliminary Blood Bacillus species A&P Assessment and plan (1) Heart failure, systolic, with acute decompensation: Patient has infiltrated her IV. We will will be established dobutamine drip. I will increase Lasix to 40 mg 3 times daily. I will replenish potassium with 40 mEq twice daily. Once euvolemic we will plan to do left heart cath. I have detailed discussion with the patient I have told at that her heart is not working properly only 20% ejection fraction she has to understand the gravity of the situation. I understand her frustration and tiredness from the hospital but we have to diurese her properly and once she is euvolemic we may have to do an angiogram to differentiate between ischemic versus nonischemic cardiomyopathy. She have understood it and she agreed to it Status: Acute (2) Hypotension: Continue dobutamine. Continue to hold Lasix and Status: Acute (3) Mass of left cardiac ventricle: No mass in the left ventricle most likely artifact by subpapillary apparatus and thickened endocardium. Lovenox has been stopped since suspicion is low and because she has small hemoptysis Status: Acute Attestations Medical Necessity Statement*: Require continuation hospitalization for above defined care. Coding Level of Care Code Established Pt Acute Painting Instructor for Chg Fwd Patient Type Established History Expanded Problem Focused Exam Expanded Problem Focused Medical Decision Making Moderate Complexity Diagnoses Heart failure, systolic, with acute decompensation I50.23 Hypotension I95.9 Mass of left cardiac ventricle I51.89
--- NOTE | 2020-06-22 19:29 | PC.NURSE ---
pt showered today with minor assist.tolerated well.ambulated in reyes x 2.tolerated fairly well.instructed in chf and plan for diuresis then possible cath.
[2020-06-22] MEDS: promethazine 25 mg/mL SDV 1 mL IM (22:17)
[2020-06-22] MEDS: trazodone 50 mg Tablet PO (23:14)
[2020-06-22] MEDS: LORazepam 2 mg/mL INJ 1 mL 0.5 MG IVP (23:15)
[2020-06-22] MEDS: ondansetron 2 mg/ML SDV 2 mL 4 MG IVP (23:22)
[2020-06-23] VITALS (8 sets, daily range): BP systolic 89–105; BP diastolic 56–72; PULSE 98–117; RESP 18–24; TEMP 36.6–37; O2SAT 92–97
[2020-06-23 07:49] LABS: Anion Gap 15.1 (5-19); Blood Urea Nitrogen 26 mg/dL (6-20); Calcium 8.7 mg/dL (8.5-10.5); Carbon Dioxide 27 mmol/L (22-29); Chloride 98 mmol/L (98-107); Glomerular Filtration Rate 50.8 mL/min (90-130); Glucose 108 mg/dL (65-115); Osmolality Calculated 279 mOsm/kg (285-295); Potassium 4.1 mmol/L (3.5-5.1); Sodium 136 mmol/L (136-145)
--- NOTE | 2020-06-23 08:38 | XR_ITS ---
WS: [id number] EXAM: AP CHEST: PORTABLE UPRIGHT DATE OF EXAM: 06/23/2020, 0953 hours COMPARISON: Chest x-rays from 12/14/2014 and 06/19/2020 HISTORY: Patient is 59 years old with follow-up right pulmonary infiltrate and effusion. FINDINGS: The cardiac silhouette is enlarged but similar. The mediastinal contours are unchanged. The pulm onary vascularity is normal. Right pleural effusion and basilar infiltrate appears to have slightly regressed. No definite progression. Left lung appears clear other than some minimal wispy atelectasis along the left heart border. No pneumothorax. No acute bony abnormality is seen. XR/XR chest 1V portable [id number] IMPRESSION: Slight regression of right lung infiltrate and effusion.
[2020-06-23] MEDS: DOBUTamine drip 500 MG/250 ML PREMIX IV (09:31)
[2020-06-23] MEDS: levofloxacin-dextrose 5 % 750 MG/150 ML PREMIX 100 MG IV (09:33)
[2020-06-23] MEDS: docusate sodium 100 mg Capsule PO (09:34)
[2020-06-23] MEDS: FUROsemide 10 mg/mL SDV 2mL 40 MG IVP (09:34)
[2020-06-23] MEDS: pantoprazole DR 40 mg Tablet PO ×2 (09:35→17:28)
[2020-06-23] MEDS: potassium chloride ER 10 mEq Tablet 40 MEQ PO (09:35)
[2020-06-23] MEDS: FUROsemide 10 mg/mL SDV 2mL 20 MG IVP (11:09)
--- NOTE | 2020-06-23 14:21 | P.PN_ITS ---
Subjective Subjective: Interval history: Elizabeth feels about the same. She can lay flat. She still very fatigued and short of breath whenever she tries to get up and around. No chest pain. Has not really been spitting up any more blood. Medications: Reviewed: Yes Vitals/I&O/Wt Last Vital Signs Temp 98.6 F 06/23/20 07:19 Pulse 108 H 06/23/20 10:52 Resp 23 H 06/23/20 10:52 BP 89/60 06/23/20 10:52 Pulse Ox 95 06/23/20 10:52 06/22/20 06/23/20 06/23/20 22:59 06:59 14:59 Intake Total 633 / 1113 553 / 1666 638.384 / 638.384 Output Total 400 / 775 300 / 1075 1525 / 1525 Balance 233 / 338 253 / 591 -886.616 / -886.616 Physical Exam Narrative: EXAM NARRATIVE: General exam no apparent distress Cardiovascular regular rate and rhythm, heart sounds distant Lungs diminished breath sounds bilaterally right greater than left Abdomen is soft with positive bowel sounds Extremities no significant edema Data : 06/22/20 04:19 06/23/20 07:06 Other data: Chest x-ray reviewed slight improvement right effusion A&P Assessment and plan (1) Pleural effusion: Right pleural effusion, causing significant symptoms of shortness of breath associated with likely very poor heart function. COVID testing negative Procalcitonin level was normal. However, patient has significant atelectasis from right pleural effusion, and is now coughing up/spitting up yellow sputum with slight amount of blood. Continue Levaquin currently. She had been intolerant of any attempt to try to perform a thoracentesis for therapeutic purposes. This can still be considered, but for now we are holding off on this. Status: Acute (2) New onset of congestive heart failure: Etiology unknown. Acute systolic. A ejection fraction approximately 20%. No evidence of intracardiac thrombus was noted. Lovenox was discontinued secondary to the patient occasionally spitting up blood. Appreciate cardiology consultation LDL was checked and 63 Currently on Lasix 60 mg every 8 hours and dobutamine per cardiology Consider initiation of beta-phillip and FELTON inhibitor if blood pressure will tolerate TSH checked and normal No evidence of pulmonary embolism on CTA Diuresis has been slow. Overall she appears to be improving Secondary to her very low EF she is a candidate for a LifeVest Hopefully angiogram Thursday Status: Acute Additional A&P Information Mild hypokalemia. Resolved Acute hypoxic respiratory failure. Secondary to CHF. She is now on room air History of GERD, continue Protonix. Patient with intermittent dry heaves here whenever she gets upset. Now occasionally will spit up a small amount of blood. Lovenox was discontinued. Aspirin will be discontinued. Ativan added as n eeded for significant anxiety. May need EGD as outpatient but currently will need to compensated heart failure before considering. Full code SCDs will serve for DVT prophylaxis Attestations Medical Necessity Statement*: Needs continued hospital stay for evaluation of cardiomyopathy causing CH F requiring dobutamine drip and IV diuresis. Coding Level of Care Code Acute Mold Car Pusher for Chg Fwd Diagnoses Pleural effusion J90 New onset of congestive heart failure I50.9
[2020-06-23] MEDS: FUROsemide 10 mg/mL SDV 10mL 60 MG IVP ×2 (17:27→21:22)
--- NOTE | 2020-06-23 18:40 | P.PN_ITS ---
Subjective Subjective: Interval history: Overall patient feels well. She denies any complaints of chest pain as of breath. Still has lower extremity edema but says that has decreased significantly since her admission. Overnight did not have good urine output. She is off oxygen right now. Saturating well. She has been tachycardic. Vitals/I&O/Wt Last Vital Signs Temp 97.9 F 06/23/20 15:51 Pulse 111 H 06/23/20 15:51 Resp 19 H 06/23/20 15:51 BP 93/60 06/23/20 15:51 Pulse Ox 96 06/23/20 15:51 06/23/20 06/23/20 06/23/20 06:59 14:59 22:59 Intake Total 553 / 1666 638.384 / 638.384 Output Total 300 / 1075 1525 / 1525 500 / 2025 Balance 253 / 591 -886.616 / -886.616 -500 / -1386.616 Physical Exam Narrative: EXAM NARRATIVE: GENERAL: Patient is alert, awake and oriented x3. [] NECK: No jugular vein distension. [] HEENT: No cyanosis. No icterus. No pallor. [] HEART: Tachycardic S1 and S2. No murmur, rub or gallop. [] LUNGS: Mild crackles bilaterally. [] ABDOMEN: Soft, nontender and nondistended. Positive bowel sounds. No guarding, rebound or tenderness. [] CENTRAL NERVOUS SYSTEM: Grossly nonfocal. [] EXTREMITIES: Lower extremities with 1+ edema bilaterally. Pulses palpable in the lower extremities, both dorsalis pedis and posterior tibial. [] Data : 06/22/20 04:19 06/23/20 07:06 A&P Assessment and plan (1) Heart failure, systolic, with acute decompensation: Continue dobutamine drip. I will increase Lasix to 60 mg 3 times daily. Continue potassium replacement. Monitor renal function and urine output. Patient is close to euvolemic, likely plan on left heart cath on Thursday or Thursday to assess for ischemic etiology of new onset heart failure. Patient verbalized understanding of the plan. Status: Acute (2) Hypotension: Monitor for now Status: Acute (3) Mass of left cardiac ventricle: No mass in the left ventricle most likely artifact by subpapillary apparatus and thickened endocardium. Lovenox has been stopped since suspicion is low and because she has small hemoptysis Status: Acute Attestations Medical Necessity Statement*: Continued diuresis Coding Level of Care Code Acute Merchandise Presentation Manager for Chg Fwd Diagnoses Heart failure, systolic, with acute decompensation I50.23 Hypotension I95.9 Mass of left cardiac ventricle I51.89
[2020-06-23] MEDS: trazodone 50 mg Tablet PO (21:22)
[2020-06-24] VITALS (9 sets, daily range): BP systolic 86–97; BP diastolic 56–74; PULSE 107–111; RESP 16–23; TEMP 36.4–37.1; O2SAT 90–96
[2020-06-24 03:57] LABS: Basophils % 0.3 %; Eosinophils # 0.1 10^3/uL (0.0-0.8); Eosinophils % 0.6 %; Hematocrit 46.2 % (37.0-47.0); Hemoglobin 14.5 g/dL (11.5-15.3); Lymphocytes # 1.3 10^3/uL (0.8-4.8); Lymphocytes % 16.5 %; Mean Corpuscular HGB Conc 31.4 g/dL (30.0-36.0); Mean Corpuscular Hemoglobin 25.7 pg (28.0-34.0); Mean Corpuscular Volume 81.9 fL (81-99); Mean Platelet Volume 10.3 fL (7.4-10.4); Monocytes # 0.6 10^3/uL (0.2-0.9); Monocytes % 8.2 %; Neutrophils # 5.79 10^3/uL (1.8-7.7); Nucleated Red Blood Cells % 0 %; Platelet Count 222 10^3/cmm (130-400); Red Blood Count 5.64 10^6/uL (4.1-5.3); Red Cell Distribution Width 17.9 % (12.1-15.1); White Blood Count 7.8 10^3/uL (4.0-10.0)
[2020-06-24 04:16] LABS: Blood Urea Nitrogen 26 mg/dL (6-20); Calcium 9.1 mg/dL (8.5-10.5); Carbon Dioxide 26 mmol/L (22-29); Chloride 94 mmol/L (98-107); Glucose 115 mg/dL (65-115); Osmolality Calculated 278 mOsm/kg (285-295); Sodium 135 mmol/L (136-145)
[2020-06-24 04:21] LABS: Anion Gap 18.8 (5-19); Potassium 3.8 mmol/L (3.5-5.1)
--- NOTE | 2020-06-24 05:45 | PC.NURSE ---
PT IS RESTING IN BED. PT DENIES PAIN AT THIS TIME. WILL CONTINUE TO MONITOR.
[2020-06-24] MEDS: docusate sodium 100 mg Capsule PO (09:38)
[2020-06-24] MEDS: FUROsemide 10 mg/mL SDV 4mL 40 MG IVP (09:38)
[2020-06-24] MEDS: pantoprazole DR 40 mg Tablet PO ×2 (09:38→17:31)
--- NOTE | 2020-06-24 10:40 | P.PN_ITS ---
Subjective Subjective: Interval history: Elizabeth reports she feels quite a bit better today. No spitting up. No abdominal discomfort. Medications: Reviewed: Yes Vitals/I&O/Wt Last Vital Signs Temp 98.0 F 06/24/20 04:00 Pulse 109 H 06/24/20 08:15 Resp 18 06/24/20 08:15 BP 96/70 06/24/20 07:55 Pulse Ox 95 06/24/20 08:15 06/23/20 06/24/20 06/24/20 22:59 06:59 14:59 Intake Total 240 / 878.384 440 / 1318.384 Output Total 500 / 2025 900 / 2925 Balance -260 / -1146.616 -460 / -1606.616 Physical Exam Narrative: EXAM NARRATIVE: General exam no apparent distress, seems happier today Cardiovascular regular rate and rhythm, heart sounds distant Lungs diminished breath sounds bilaterally right greater than left Abdomen is soft with positive bowel sounds Extremities no significant edema Data : 06/24/20 03:12 06/24/20 03:12 Micro: Microbiology 06/19/20 01:30 Blood Culture - Final Blood NO GROWTH AFTER 5 DAYS A&P Assessment and plan (1) Pleural effusion: Right pleural effusion, causing significant symptoms of shortness of breath associated with likely very poor heart function. COVID testing negative Procalcitonin level was normal. However, patient has significant atelectasis from right pleural effusion, and is now coughing up/spitting up yellow sputum with slight amount of blood. Continue Levaquin currently. She had been intolerant of any attempt to try to perform a thoracentesis for therapeutic purposes. This can still be considered, but for now we are holding off on this. She will need repeat imaging of this to ensure that effusion continues to improve as an outpatient. Status: Acute (2) New onset of congestive heart failure: Etiology unknown. Acute systolic. A ejection fraction approximately 20%. No evidence of intracardiac thrombus was noted. Lovenox was discontinued secondary to the patient occasionally spitting up blood. Appreciate cardiology consultation LDL was checked and 63 Currently on Lasix 60 mg every 8 hours and dobutamine per cardiology. Cardiology has reduced to 40 mg IV every 12 hours today Consider initiation of beta-phillip and FELTON inhibitor if blood pressure will tolerate TSH checked and normal No evidence of pulmonary embolism on CTA Over the last 24 hours she diuresed nicely with 1600 cc. Secondary to her very low EF she is a candidate for a LifeVest Angiogram anticipated Thursday. Status: Acute Additional A&P Information Mild hypokalemia. Resolved Acute hypoxic respiratory failure. Secondary to CHF. She is now on room air History of GERD, continue Protonix. Patient with intermittent dry heaves here whenever she gets upset. Now occasionally will spit up a small amount of blood. Lovenox was discontinued. Aspirin will be discontinued. Ativan added as needed for significant anxiety. Full code SCDs will serve for DVT prophylaxis Attestations Medical Necessity Statement*: Needs continued hospitalization for further diuresis secondary to severe acute systolic heart failure. Coding Level of Care Code Acute Auto Air Conditioning Mechanic for Haylee Norris Diagnoses Pleural effusion J90 New onset of congestive heart failure I50.9
[2020-06-24] MEDS: magnesium hydroxide 30 mL UDC PO (11:36)
[2020-06-24] MEDS: lactulose oral liq 20 gm/30 mL UDC PO (13:26)
--- NOTE | 2020-06-24 21:20 | PC.NURSE ---
Was asked by patients Nurse to give 40mg of IVP Lasix. Patients blood pressure was 90/68. I looked at patients vitals trend systolic pressure has been below blood and asked patients nurse to call the hospitalist and confirm that the lasix needs to be given. Was told by patient care nurse that Dr. Tijerina did not want the IVP Lasix given at this time. Will continue to monitor.
--- NOTE | 2020-06-24 21:26 | PC.NURSE ---
PT IS RESTING IN BED. PT HAS 0 C/O. BP 90/68 LASIX WAS HELD BY [employer]UE OFFICER NURSE AND APPROVED BY DR DE LEON. WILL CONTINUE TO MONITOR.
--- NOTE | 2020-06-24 22:09 | PM.PN ---
Subjective Subjective: Interval history: Patient is doing well. Her shortness of breath and lower extremity will have significantly improved. She is almost euvolemic. She diuresed more than 2.5 L over the last 24 hours Vitals/I&O/Wt Last Vital Signs Temp 98.0 F 06/24/20 04:00 Pulse 109 H 06/24/20 20:07 Resp 16 06/24/20 20:07 BP 90/68 06/24/20 20:00 Pulse Ox 93 06/24/20 20:07 06/24/20 06/24/20 06/24/20 06:59 14:59 22:59 Intake Total 440 / 1318.384 480 / 480 Output Total 900 / 2925 200 / 200 Balance -460 / -1606.616 280 / 280 Physical Exam Narrative: EXAM NARRATIVE: GENERAL: Patient is alert, awake and oriented x3. [] NECK: No jugular vein distension. [] HEENT: No cyanosis. No icterus. No pallor. [] HEART: Tachycardic S1 and S2. No murmur, rub or gallop. [] LUNGS: Mild crackles bilaterally. [] ABDOMEN: Soft, nontender and nondistended. Positive bowel sounds. No guarding, rebound or tenderness. [] CENTRAL NERVOUS SYSTEM: Grossly nonfocal. [] EXTREMITIES: Lower extremities with 1+ edema bilaterally. Pulses palpable in the lower extremities, both dorsalis pedis and posterior tibial. [] Data : 06/24/20 03:12 06/24/20 03:12 Micro: Microbiology 06/19/20 01:30 Blood Culture - Final Blood NO GROWTH AFTER 5 DAYS A&P Assessment and plan (1) Heart failure, systolic, with acute decompensation: Continue dobutamine drip. Patient seems close to being euvolemic. I have reduced the dose of Lasix to 40 mg BID as her creatinine had a slight increase today and there is a plan for coronary angiogram for tomorrow. We will plan on coronary angiogram tomorrow with Dr Milner. I have discussed the risks and benefits of the procedure in detail. Patient is in agreement with the plan. Status: Acute (2) Hypotension: Monitor for now Status: Acute (3) Mass of left cardiac ventricle: No mass in the left ventricle most likely artifact by subpapillary apparatus and thickened endocardium. Lovenox has been stopped since suspicion is low and because she has small hemoptysis Status: Acute Attestations Medical Necessity Statement*: Need for coronary angiogram and IV diuresis Coding Level of Care Code Acute Windows Software Engineer for Chg Fwd Diagnoses Heart failure, systolic, with acute decompensation I50.23 Hypotension I95.9 Mass of left cardiac ventricle I51.89
[2020-06-25] VITALS (19 sets, daily range): BP systolic 76–108; BP diastolic 56–82; PULSE 95–117; RESP 14–27; TEMP 35.7–36.6; O2SAT 93–98
--- NOTE | 2020-06-25 04:26 | PC.NURSE ---
PT HAS IV IN RIGHT WRIST. PT EDUCATED ON THE POSSIBILITY OF A RIGHT RADIAL ACCESS FOR THE PROCEDURE. PT STATES THAT WILL BE HER 6TH IV. AND I CAN NOT PUT IN ANOTHER IV UNTIL THE DOCTOR MAKES THE CHOICE OF WHERE THE ACCESS SITE IS CHOSEN. PT DENIES PAIN AT THIS TIME. PT IS UPSET ABOUT BEING NPO AND WAS EDUCATED TO WHY. WILL CONTINUE TO MONITOR.
[2020-06-25 05:52] LABS: Anion Gap 19.2 (5-19); Blood Urea Nitrogen 31 mg/dL (6-20); Carbon Dioxide 27 mmol/L (22-29); Chloride 92 mmol/L (98-107); Glomerular Filtration Rate 56.7 mL/min (90-130); Glucose 128 mg/dL (65-115); Magnesium 2.1 mg/dL (1.7-2.3); Osmolality Calculated 279 mOsm/kg (285-295); Potassium 3.2 mmol/L (3.5-5.1); Sodium 135 mmol/L (136-145)
--- NOTE | 2020-06-25 05:55 | PC.NURSE ---
PT STATES THAT IV INFILTRATED. IV FLUSHED AND RETURNED BLOOD. PT STATES 10/10 PAIN. PT WAS EDUCATED THAT ANOTHER IV NEEDS TO BE STARTED D/T BEING ON A DOBUTAMINE GTT. PT WANTED IV REMOVED AND ONLY AN ULTRASOUND GUIDED IV CAN GO BACK IN. HOUSE SUPER WAS NOTIFIED AND IS SEEING IF THERE IS ANYONE IN HOUSE THAT CAN DO IT. DOCTOR WAS ALSO NOTIFIED OF PT BEING OFF DOBUTAMINE GTT. WILL CONTINUE TO MONITOR.
--- NOTE | 2020-06-25 07:45 | PC.NURSE ---
Patient prepped for cath. Reproduction Specialist contacted for US guided IV, nurse to follow up.
[2020-06-25] MEDS: docusate sodium 100 mg Capsule PO (09:01)
[2020-06-25] MEDS: pantoprazole DR 40 mg Tablet PO ×2 (09:02→17:19)
[2020-06-25] MEDS: levofloxacin-dextrose 5 % 750 MG/150 ML PREMIX 100 MG IV (09:02)
[2020-06-25] MEDS: diphenhydrAMINE 50 mg Capsule PO (09:02)
--- NOTE | 2020-06-25 09:40 | XACV_ITS ---
Exam Room: [facility] Ht: 160 cm Wt: 57 kg BSA: 1.60 m2 Gender: Female : 1960 Any Known Allergies: Other Exam Priority: Routine Procedure(s): Procedure Description: Diagnostic procedure Procedure Description: Left Heart Catheterization Procedure Description: Coronary Angiography Diagnostic Findings No significant disease noted in the Left Main, LAD, Circumflex, or RCA coronary arteries. Coronary angiography shows left dominance. Conclusions No significant disease noted in the Left Main, LAD, Circumflex, or RCA coronary arteries. Reason for coronary angiogram: New onset of heart failure with severe LV dysfunction. Recommendations Continue current medical management and risk factor modification. Diagnostic RX Recommendation: medical therapy and/or counseling Pressures Phase:Rest AO : 65 mmHg / 58 mmHg ( 62 mmHg ) @ 5:20:00 AM 99 mmHg / 72 mmHg ( 81 mmHg ) @ 5:25:00 AM 28 mmHg / 25 mmHg ( 26 mmHg ) @ 5:27:00 AM LV : 95 mmHg / 2 mmHg / @ 5:25:00 AM Clinical Evaluation EBL: 5mL-10mL Procedural Details Procedure Consent Obtained. Pre-Procedure Time Out. Identified patient by full name and date of as verbalized by the patient/guarantor. Does the consent match the physician's order: Yes. Accurate & Complete Informed Consent: Yes. Inpatient/Outpatient History & Physical on Chart: Yes. If H&P is completed, is and addenduem needed: N/A; If yes, is the addendum complete: N/A. Visualize and Verify Site with Patient/Guarantor: N/A. Relevant Radiology Images available: Yes. Pre-op teaching completed and patient verbalized understanding. The risks, benefits, and alternatives of sedation and/or procedure were discussed by physician. The patient agrees to continue. Procedure started. PERRLA. Strong, equal hand therapeutic radiologist bilaterally. Lungs clear x 5 lobes. IV Site on Arrival: 18 gauge in the left forearm. IV Fluids: 0.9% NaCl at KVO. 0 mL infused prior to laboratory technician. Pre Procedural Pulses: bilateral dorsalis pedis was Doppled. Pre Procedural Pulses: bilateral posterior tibial was Doppled. Pre Procedural Pulses: bilateral radial was 2+. Oxygen started at 2liters/min via nasal canula. right groin was prepped with chloroprep then draped in the usual sterile fashion. Physician notified. Baseline sample Acquired. HR: 120 BPM. Equipment: 6F - Femoral. Cardiac Cath Pack. ACIST Manifold Kit Model BT 2000. Heparinized Saline (2 units/mL), 1000 mL bag. Kit, Micropuncture. Physician arrived. Physician scrubbed in. Immediate Pre-Procedure Time Out. Correct Patient: Yes; Correct Procedure: Yes; Correct Site: Yes; Correct Patient Position: Yes; Correct Supplies: Yes; Dried Flammable Prep: Yes; Blood Products Available: No;. Lidocaine 1% infiltrated to the right groin. Arterial access obtained with micropuncture set. A 5 slovenian JL4 catheter in over wire. Multiple views taken of left coronary artery. Catheter out. A 5 slovenian JR4 catheter in over wire. EDP Sample taken: LV 95/2,9; HR: 103 BPM; SpO2: 96%. Pullback taken: LV Off; AO Off; Mean: , Peak to Peak: , SEP: ; HR: 110 BPM; SpO2: 96%. Multiple views taken of right coronary artery. A Manual Compression was successful obtaining hemostatsis at the Right Femoral artery insertion site. Sheath(s) removed and manual pressure held until hemostasis was achieved. Sterile 4x4 and Op-site applied to the puncture site. No oozing or hematoma noted. Post sheath removal instructions were given and the patient verbalized understanding. Post Procedure: Pulses reassessed and unchanged. PERRLA. Strong, equal hand therapeutic radiologist bilaterally. No VTE prophylaxis required. Medication's Wasted: Lidocaine 1% = 10 mL. Medication's Wasted: Other = heparin 1000 units. Medication's Wasted: Other = fentanyl 50 mcg. Total IV fluids: 50 mL. Fluoro: 2:10. Contrast type used: Omnipaque 300 mgI/mL, 500 mL bottle. [id number]. Post-op diagnosis: . Complications: none. Estimated blood loss: 5mL-10mL. Procedure completed. Patient transferred by bed to 1st floor. [facility] Clinical Fraility Score: 3: Managing Well. Mapping Engineer Indications: Cardiomyopathy. Mapping Engineer Indications: LV Dysfunction. Chest Pain Symptom Assessment: Atypical Angina. Cardiovascular Instability: No. Vital chart was stopped. Site: Right Femoral artery Sheath Size: 5 Fr Hemostasis Method: Manual Compression Hemostasis Success: Successful Procedure Medications Start: 9:56 AM Stop: 9:56 AM Medication: Fentanyl Amount: 25 mcg Route: I.V. Start: 10:06 AM Stop: 10:06 AM Medication: Versed Amount: 2 mg Route: I.V. Start: 10:12 AM Stop: 10:12 AM Medication: Fentanyl Amount: 25 mcg Route: I.V. I, the attending physician, have reviewed and verified all procedure medications. Yes, all medications given per verbal order History/Risk Factors Hypertension: Yes Dyslipidemia: No Peripheral Arterial Disease (PAD): No Myocardial Infarction (WA): No Obesity: No Renal Disease: No Tobacco Use: Former Prior Interventions PCI: No CABG: No Valve Surgery: No Report Signatures Finalized by:Bailee Milner MD on 07/01/2020 3:58:50 PM
--- NOTE | 2020-06-25 09:45 | PC.NURSE ---
Patient off to floor to manager cardiac cath.
--- NOTE | 2020-06-25 10:48 | P.PN_ITS ---
Subjective Subjective: Interval history: Patient underwent left heart catheter today she was noted to have normal coronaries. Medications: Reviewed: Yes Vitals/I&O/Wt Last Vital Signs Temp 97.9 F 06/25/20 06:56 Pulse 103 H 06/25/20 06:56 Resp 21 H 06/25/20 06:56 BP 93/66 06/25/20 06:56 Pulse Ox 93 06/25/20 06:56 06/24/20 06/25/20 06/25/20 22:59 06:59 14:59 Intake Total 360 / 840 426.907 / 1266.907 81.055 / 81.055 Output Total 400 / 600 Balance 360 / 640 26.907 / 666.907 81.055 / 81.055 Physical Exam Narrative: EXAM NARRATIVE: GENERAL: Patient is awake and oriented x3 but appears to be exhausted. Thin lean anc cachectic, NECK: No jugular vein distension. HEENT: No cyanosis. No icterus. No pallor. HEART: Regular S1 and S2. No murmur, rub or gallop. LUNGS: Clear to auscultate bilaterally. ABDOMEN: Soft, nontender and nondistended. Positive bowel sounds. No guarding, rebound or tenderness. CENTRAL NERVOUS SYSTEM: Grossly nonfocal. EXTREMITIES: Lower extremities with trace edema bilaterally. Data : 06/24/20 03:12 06/25/20 04:48 A&P Assessment and plan (1) Heart failure, systolic, with acute decompensation: Discontinue dobutamine. She is appeared to be well compensated. Continue IV Lasix 40 mg twice a day. I will add low-dose metoprolol tartrate since patient blood pressure is borderline low at 100 systolic over 60 diastolic. 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 At this point we recommend LifeVest for 3 months for primary prevention. We will repeat echocardiogram after that since we will be optimizing her medicine to assess her ejection fraction. Status: Acute (2) Hypotension: Continue to monitor closely Status: Acute (3) Mass of left cardiac ventricle: No mass noted with contrast. Patient is not on anticoagulation due to hemoptysis Status: Acute Attestations Medical Necessity Statement*: Patient require continuation hospitalization for above defined care for above defined care Coding Level of Care Code Established Pt Acute Alarm Security Or Surveillance Monitor for g Fwnery Patient Type Established History Expanded Problem Focused Exam Expanded Problem Focused Medical Decision Making Moderate Complexity Diagnoses Heart failure, systolic, with acute decompensation I50.23 Hypotension I95.9 Mass of left cardiac ventricle I51.89
--- NOTE | 2020-06-25 11:05 | PC.NURSE ---
Patient arrived back to floor from collaborative physician. 2 nurse verification of insertion site, asymptomatic. Patient complains of pain in her right rib/ back region at 8/10. Patient reports that pain would go away if she could move. Patient educated on activity restrictions following angiogram. Right ribs massaged and pain was alleviated. Patient is tearful and states that she just wants to go home today no matter what the costs.
--- NOTE | 2020-06-25 11:30 | PC.NURSE ---
Dr. Miller at bedside to discuss plan of care. Patient remains tearful stating that she wants to be discharged. Dr. Miller to collaborate with Dr. Milner.
--- NOTE | 2020-06-25 12:11 | PM.PN ---
Subjective Subjective: Interval history: She is having some soreness in her back from lying still. No chest pain. No shortness of breath. She is wanting to leave home, but understands we need to confirm with the heart doctor with regards to optimizing therapy and transitioning to a safe regimen, monitoring blood pressures as well as arrangements for life vest. Vitals/I&O/Wt Last Vital Signs Temp 96.2 F L 06/25/20 11:00 Pulse 107 H 06/25/20 11:00 Resp 26 H 06/25/20 11:00 BP 108/72 06/25/20 11:00 Pulse Ox 93 06/25/20 11:00 06/24/20 06/25/20 06/25/20 22:59 06:59 14:59 Intake Total 360 / 840 426.907 / 1266.907 81.055 / 81.055 Output Total 400 / 600 Balance 360 / 640 26.907 / 666.907 81.055 / 81.055 Physical Exam Const: COMMON NORMALS: no acute distress and patient oriented x3 HENMT: COMMON NORMALS: oropharynx normal Neck/C-Spine: COMMON NORMALS: no JVD Resp: COMMON NORMALS: normal respiratory effort and clear to auscultation bilaterally AUSCULTATION: clear to auscultation bilaterally Cardio: COMMON NORMALS: no JVD, regular rhythm, S1 normal heart sound present, S2 normal heart sound present and No murmurs present (Cardio) RHYTHM: regular rhythm HEART SOUNDS: S1 normal heart sound present and S2 normal heart sound present GI: COMMON NORMALS: Normal to inspection, nondistended, normoactive bowel sounds present, Soft to palpation and non-tender PALPATION: Yes Soft to palpation Extremity: COMMON NORMALS: no joint enlargement and no pedal edema OTHER: R groin dressing in place. No bleeding. No swelling. Neuro: COMMON NORMALS: patient oriented x3 and moves all extremities Skin: COMMON NORMALS: no rashes or lesions noted GENERAL SKIN EXAM: no rashes or lesions noted Data : 06/24/20 03:12 06/25/20 04:48 A&P Assessment and plan (1) Pleural effusion: Discussed with her again regarding pleural effusion. She declines to at all consider trying again for thoracentesis. She had previously discussed diuretic therapy, and is content with continuing this. She understands that diuretic therapy may take a long time and this may not resolve her effusion especially if it becomes organized. She does not want thoracentesis or any other invasive management option at this time. Right pleural effusion, causing significant symptoms of shortness of breath associated with likely very poor heart function. COVID testing negative Procalcitonin level was normal. However, patient has significant atelectasis from right pleural effusion, and is now coughing up/spitting up yellow sputum with slight amount of blood. Continue Levaquin currently. She had been intolerant of any attempt to try to perform a thoracentesis for therapeutic purposes. This can still be considered, but for now we are holding off on this. She will need repeat imaging of this to ensure that effusion continues to improve as an outpatient. Status: Acute (2) New onset of congestive heart failure: S/p cor angiography today. No significant coronary artery disease noted. Secondary to nonischemic cardiomyopathy. Appreciate cardiology recommendations. She has been weaned off dobutamine. Monitor blood pressure. Today attempted to switch to oral diuretics. Attempt addition of low-dose beta-phillip. FELTON inhibitor. Life vest request has been submitted and she is in the process of discussing regarding the arrangements. Ability to afford this may be a concern. Appreciate care coordination assistance. She requests to go home. Discussed with cariologist who had dicussed with her and her husbands. Given she was just weaned off dobutamine, severity of her congestive heart failure, optimization transitioning of medications additional monitoring of blood pressure, urine output, volume status will be necessary in the hospital as discussed with her due to worsening of congestive heart failure, respiratory failure, blood pressure fluctuations and possible hypotension, endorgan injury as well as other complications. Etiology unknown. Acute systolic. A ejection fraction approximately 20%. No evidence of intracardiac thrombus was noted. Lovenox was discontinued secondary to the patient occasionally spitting up blood. Appreciate cardiology consultation TSH checked and normal No evidence of pulmonary embolism on CTA Diuresing well. Secondary to her very low EF she is a candidate for a LifeVest as discussed with her regarfing risks of arrhythmia and nature of live vest therapy. She verbalized understanding. Status: Acute Additional A&P Information Mild hypokalemia. Requested replacement. Acute hypoxic respiratory failure. Secondary to CHF. On room air. History of GERD, continue Protonix. Patient with intermittent dry heaves here whenever she gets upset. Previously noted spitting up small amount of blood in secretions from dry heaves. Lovenox was discontinued. Aspirin will be discontinued. Ativan added as needed for significant anxiety. Attestations Medical Necessity Statement*: Continue admission for optimization of medical therapy for acute CHF secondary to nonischemic cardiomyopathy, discharge preparations. Coding Level of Care Code Acute Live In Housekeeper Nanny for Haylee Norris Diagnoses Pleural effusion J90 New onset of congestive heart failure I50.9
[2020-06-25] MEDS: acetaminophen 325 mg Tablet 650 MG PO (12:25)
[2020-06-25] MEDS: potassium chloride ER 10 mEq Tablet 40 MEQ PO (12:25)
[2020-06-25] MEDS: FUROsemide 20 mg Tablet PO (13:59)
[2020-06-25] MEDS: ondansetron 2 mg/ML SDV 2 mL 4 MG IVP (14:58)
--- NOTE | 2020-06-25 16:44 | PC.NURSE ---
Patient ambulated with nursing staff following 6 hour activity restriction. Right groin reassessed, asymptomatic. Nurse to continue to monitor.
[2020-06-25] MEDS: carvedilol 3.125 mg Tablet PO (17:19)
[2020-06-25] MEDS: trazodone 50 mg Tablet PO (20:56)
[2020-06-26] VITALS: BP 88/61; PULSE 96; RESP 20; O2SAT 94
[2020-06-26 04:00] VITALS: BP 100/69; PULSE 102; RESP 16; TEMP 36.6; O2SAT 95
[2020-06-26 07:16] VITALS: BP 101/61; PULSE 97; RESP 13; TEMP 36.7; O2SAT 95
[2020-06-26] MEDS: FUROsemide 40 mg Tablet PO (07:25)
[2020-06-26 07:26] LABS: Anion Gap 17.5 (5-19); Blood Urea Nitrogen 35 mg/dL (6-20); Calcium 9.5 mg/dL (8.5-10.5); Carbon Dioxide 28 mmol/L (22-29); Chloride 93 mmol/L (98-107); Glomerular Filtration Rate 38.5 mL/min (90-130); Glucose 111 mg/dL (65-115); Osmolality Calculated 276 mOsm/kg (285-295); Potassium 4.5 mmol/L (3.5-5.1); Sodium 134 mmol/L (136-145)
[2020-06-26] MEDS: docusate sodium 100 mg Capsule PO (08:39)
[2020-06-26] MEDS: carvedilol 3.125 mg Tablet PO (08:39)
[2020-06-26] MEDS: pantoprazole DR 40 mg Tablet PO (08:40)
[2020-06-26] MEDS: digoxin 250 mcg/ml INJ 2 mL IVP (10:18)
[2020-06-26 10:45] VITALS: BP 97/71; PULSE 115; RESP 25; O2SAT 95
--- NOTE | 2020-06-26 12:10 | P.PN_ITS ---
Subjective Subjective: Interval history: Feeling better. She is euvolemic blood pressure still borderline low. She was tachycardic therefore started on digoxin. She would like to go back home. Medications: Reviewed: Yes Vitals/I&O/Wt Last Vital Signs Temp 98.1 F 06/26/20 07:16 Pulse 115 H 06/26/20 10:45 Resp 25 H 06/26/20 10:45 BP 97/71 06/26/20 10:45 Pulse Ox 95 06/26/20 10:45 06/25/20 06/26/20 06/26/20 22:59 06:59 14:59 Intake Total 240 / 639.388 120 / 120 Output Total 100 / 275 50 / 325 150 / 150 Balance 140 / 364.388 -50 / 314.388 -30 / -30 Physical Exam Narrative: EXAM NARRATIVE: GENERAL: Patient is awake and oriented x3 looking fresh today NECK: No jugular vein distension. HEENT: No cyanosis. No icterus. No pallor. HEART: Regular S1 and S2. No murmur, rub or gallop. LUNGS: Clear to auscultate bilaterally. ABDOMEN: Soft, nontender and nondistended. Positive bowel sounds. No guarding, rebound or tenderness. CENTRAL NERVOUS SYSTEM: Grossly nonfocal. EXTREMITIES: Lower extremities without edema Data : 06/24/20 03:12 06/26/20 06:32 A&P Assessment and plan (1) Heart failure, systolic, with acute decompensation: Patient has been switched to p.o. medicine. Due to low blood pressure she is not tolerating FELTON inhibitor therefore we will hold onto FELTON inhibitor for now it will be introduced as an outpatient either in the form of Entresto or lisinopril low-dose. Continue carvedilol. Digoxin has been added for tachycardia. We will back off on Lasix to 40 mg once a day. I will reduce potassium to 10 mg p.o. daily. We will recheck digoxin level and creatinine in 3 days. She will be seeing Na Gill cardiology nurse practitioner in 6 to 7 days. Patient has been advised to keep log of blood pressure pulse and daily weight. She has been instructed to take extra water pill if she gains more than 3 pounds. Status: Acute (2) Hypotension: Patient has not been started on FELTON inhibitor or ARB due to low blood pressure. Status: Acute (3) Mass of left cardiac ventricle: Not on anticoagulation due to hemoptysis. Mass in the left ventricle was most likely subvalvular apparatus and endocardium not any significant pathology. There was no thrombus seen. Status: Acute Attestations Medical Necessity Statement*: From a cardiovascular perspective patient can be discharged home today Coding Level of Care Code Established Pt Acute Skiver Uppers Or Linings for Chg Fwd Patient Type Established Exam Expanded Problem Focused Medical Decision Making Moderate Complexity Diagnoses Heart failure, systolic, with acute decompensation I50.23 Hypotension I95.9 Mass of left cardiac ventricle I51.89
--- NOTE | 2020-06-26 12:46 | PC.NURSE ---
Dr. Milner gave verbal order to not administer 1400 dose of lasix 20 mg or digoxin due to creatinine, RBVO. Nurse to continue to monitor.
[2020-06-26 15:22] VITALS: BP 94/60; PULSE 86; RESP 15; TEMP 36.7; O2SAT 93
--- NOTE | 2020-06-26 15:50 | PC.NURSE ---
Discharge instructions given per the physician's instructions. Patient verbalized understanding of discharge teaching and medication information. Patient did not have any further questions. IV has been removed. Clothes will be delivered by at 1600. No further needs identified. Nurse to continue to monitor.
--- NOTE | 2020-06-26 16:26 | PM.DCS ---
Discharge Providers Date of Admission: 06/19/20 04:13 Date of Discharge: June 26, 2020 Attending Provider at Admission: Bailee Tijerina MD Attending Provider at Discharge: Matthew Miller Primary Care Provider: Leatha Dimas MD Diagnoses at Discharge Discharge Diagnosis (1) Heart failure, systolic, with acute decompensation: Status: Acute (2) Hypotension: Status: Acute (3) Mass of left cardiac ventricle: Status: Acute (4) Pleural effusion: Status: Acute (5) Dyspepsia: Status: Acute Reason for Visit Reason for Visit: swelling in legs Hospital Course Hospital Course: 59-year-old lady with history of GERD, HTN, former smoker with 30 p-y history, had a prolonged hospitalization after presenting with worsening shortness of breath, PND, orthopnea and lower extremity edema (please see progress notes for details), and during which was found to have severe systolic congestive heart failure with cardiomyopathy and EF of 20%. No PE was seen on CTA. COVID-19 testing negative. During hospitalization temporarily required dobutamine support. Was treated with IV diuresis. Coronary angiogram did not reveal significant coronary disease. Also underwent empiric treatment for possible pneumonia. Noted to have right lower lobe pleural effusion for which thoracentesis was offered several times, however, she could not tolerate the procedure, and declined to have any further attempts. This will need to be followed up with repeat imaging to make sure it is improving with diuresis. She understands that it may not entirely resolve with diuresis alone. She is going to complete 2 more days of Levaquin on discharge. Due to significantly low ejection fraction on discharge she is set up with LifeVest, as well as follow-up with cardiology for nonischemic cardiomyopathy. She is started on low-dose carvedilol as well as digoxin due to few episodes of tachycardia, but in the setting of low blood pressure. For now FELTON inhibitor or Entresto were held often due to soft blood pressures. Due to some fluctuation renal function renal functions her creatinine will need to be followed up as well. BMP and digoxin levels are ordered for 3 days from now. Please follow-up results. Of note while in the hospital was noted to have episodes of nausea/dyspepsia and dry heaving, occasionally bringing up some blood mixed in with secretions. She is continued on PPI at this time. However, if dyspepsia persists, given prior smoking history, please consider additional follow-up with endoscopic evaluation to exclude malignancy or other causes of symptoms. Physical Exam Const: COMMON NORMALS: no acute distress and patient oriented x3 OTHER: Today she is much more energetic. Earlier walked with physical therapy. Currently in good spirits. Requesting to go home. LifeVest should be set up shortly. HENMT: COMMON NORMALS: oropharynx normal Neck/C-Spine: COMMON NORMALS: no JVD Resp: COMMON NORMALS: normal respiratory effort and clear to auscultation bilaterally AUSCULTATION: clear to auscultation bilaterally Cardio: COMMON NORMALS: no JVD, regular rhythm, S1 normal heart sound present, S2 normal heart sound present and No murmurs present (Cardio) RHYTHM: regular rhythm HEART SOUNDS: S1 normal heart sound present and S2 normal heart sound present GI: COMMON NORMALS: Normal to inspection, nondistended, normoactive bowel sounds present, Soft to palpation and non-tender PALPATION: Yes Soft to palpation Extremity: COMMON NORMALS: no joint enlargement and no pedal edema OTHER: R groin with no bleeding. No swelling. Neuro: COMMON NORMALS: patient oriented x3 and moves all extremities Skin: COMMON NORMALS: no rashes or lesions noted GENERAL SKIN EXAM: no rashes or lesions noted Discharge Data Data Completed and Pending: Completed Studies During Hospitalization Category Date Time Status CT angio chest PE protcl [id number] Urge nt Cat Scan 06/19/20 02:44 Completed XR chest 1V margaret ble [id number] Routine Exams 06/23/20 08:38 Completed XR chest 1V margaret ble [id number] Stat Exams 06/19/20 01:10 Completed CV echo complete* [id number] Routine Ultrasound 06/19/20 05:10 Completed CV echo lmt wo/w contras [id number] Rout ine Ultrasound 06/19/20 18:42 [place] [id number] Urgent Ultrasound 06/19/20 01:39 Completed US chest [id number] Ro utine Ultrasound 06/19/20 07:00 Completed US echo limited w ith contrast [CV e cho lmt wo/w contr as Ultrasound 06/20/20 10:05 Completed C8924] Routine US/CV paperwork R outine Ultrasound 06/20/20 Completed Pending at discharge Category Date Time Status TRADING MANAGER request for service Routin e Exams 06/25/20 09:40 Taken Blood Culture Sta t Lab 06/19/20 01:30 Results Labs from last 24 hours 06/26/20 06/26/20 06:32 04:49 Sodium 134 L Cancelled Potassium 4.5 Cancelled Chloride 93 L Cancelled Carbon Dioxide 28 Cancelled Anion Gap 17.5 Cancelled BUN 35 H Cancelled Creatinine 1.4 H Cancelled GFR Calculation 38.5 L Cancelled Glucose 111 Cancelled Calculated Osmolal ity 276 L Cancelled Calcium 9.5 Cancelled Vitals: Last Vital Signs Temp 98.0 F 06/26/20 15:22 Pulse 86 06/26/20 15:22 Resp 15 06/26/20 15:22 BP 94/60 06/26/20 15:22 Pulse Ox 93 06/26/20 15:22 Discharge Plan Discharge Patient Disposition: Home Condition: Stable Prescriptions: New furosemide 40 mg Tablet 40 mg PO DAILY@0800 Qty: 30 RF: 3 carvedilol 3.125 mg Tablet 3.125 mg PO BID Qty: 60 RF: 4 potassium chloride 20 mEq tablet extended release 10 meq PO DAILY Qty: 60 RF: 4 digoxin 125 mcg (0.125 mg) tablet 62.5 mcg PO DAILY Qty: 30 RF: 5 pantoprazole 40 mg Tablet,Delayed Release (Dr/Ec) 40 mg PO DAILY Qty: 30 RF: 4 Levaquin 750 mg tablet 750 mg PO DAILY 2 Days Qty: 2 RF: 0 Continued albuterol sulfate [ProAir HFA] 90 mcg/actuation HFA aerosol inhaler 2 puff INHALATION Q6H PRN (Reason: Shortness Of Breath) RF: 0 Women's Multivitamin 18 mg iron-400 mcg-500 mg Tablet 1 tab PO DAILY RF: 0 Discontinued hydrochlorothiazide 25 mg tablet 25 mg PO QAM 30 Days Qty: 30 RF: 2 pantoprazole 20 mg tablet,delayed release (DR/EC) 20 mg PO DAILY 30 Days Qty: 30 RF: 2 Discharge Orders: Discharge Order (Routine); Ordered 06/26/20 Ordered By: Matthew Miller Other Ambulatory Orders: Basic Metabolic Panel (Routine) Timeframe: 3 Days Facility: [facility] - Location: Lab - Main Lab Ordered By: Matthew Miller Digoxin (Routine) Timeframe: 3 Days Facility: [facility] - Location: Lab - Main Lab Ordered By: Matthew Miller Referrals: Bailee Milner MD [Physician] - 1 month (Please follow up with Dr. Milner on July 30 at 1 pm. If you are unable to keep this appointment please call .) Na Gill FNP [Nurse Practitioner] - (Please follow up with MARGARET Gregory on July 03 at 2 pm. If you are unable to keep this appointment please call .) Leatha Dimas MD [Primary Care Provider] - 4-7 days (Please follow up with Dr. Dimas on July 02 at 9 am. If you are unable to keep this appoitnment, please call to reschedule.) Discharge Diet: Cardiac and Low Salt Discharge Activity: Increase activity as tolerated Patient Instructions: Digoxin (By mouth), Furosemide (By mouth), Potassium Chloride (By mouth), Levofloxacin (By mouth), Carvedilol (By mouth), Pantoprazole (By mouth), Heart Failure (DC), Left Heart Catheterization (DC), Right Heart Catheterization (DC), Pleural Effusion (DC), CHF Stoplight, Chest Pain Stoplight, Post Angiogram Home Care Instructions Activity Restrictions/Additional Instructions: Please provide patient heart failure education. Please see Na Gill cardiology nurse practitioner in 7 to 10 days. Keep a log of blood pressure pulse rate and daily weight. If you gain more than 3 pounds in 2 consecutive days take extra water pill that day. Please check digoxin level in 3 days. If you experience worsening shortness of breath, cough, high fever, chest pain, or other abnormal symptoms, please seek medical attention without delay. Please discuss again with your primary care doctor with regards to fluid under your lung. As discussed previously this may take a long time to resolve with treatment with diuretics, and in some instances may not resolve at all. Please discuss follow-up reassessment and follow-up imaging with chest x-ray. Please wear LifeVest as instructed due to risk of abnormal heart rhythms due to severe congestive heart failure. Please discuss with your primary care doctor and make sure to follow-up with the manager gyn. Please also discuss with your primary care doctor with regards to intermittent nausea and dry heaves. Once you are doing better, consideration may be given to additional investigation, possibly by gastroscopy given you are having small amounts of blood. Continue pantoprazole. Avoid any NSAIDs like ibuprofen, Aleve, which may exacerbate any inflammation in the stomach. Gastroscopy may be needed to exclude other causes including malignancy due to past history of smoking. Discharge Date/Time: 06/26/20 16:43 Discharge Attestations Time Spent in Discharge Care*: greater than 30 min Quality Metrics Clinical Quality Measures During this hospital stay, did patient experience: None Coding Level of Care Code Acute Legal Counsel for Chg Fwd Diagnoses Heart failure, systolic, with acute decompensation I50.23 Hypotension I95.9 Mass of left cardiac ventricle I51.89 Pleural effusion J90 Dyspepsia R10.13
[2020-06-26 16:42] VITALS: BP 94/60; PULSE 86; RESP 15; TEMP 36.7; O2SAT 93
== END 2020-06-26 16:43 | disposition home or self-care (01) | DRG 286 ==
LOC: ER 04:11 → CSU 04:43
PROVIDERS: Emergency Medicine; Internal Medicine; Internal Medicine Cardiovascular Disease; Physician Assistant; Admitting Provider Internal Medicine; PCP Family Medicine; Visit Provider Internal Medicine
PROC: 4A023N7 Measurement of Cardiac Sampling and Pressure, Left Heart, Percutaneous Approach (ICD-10-PCS; principal; 2020-06-25 10:00)
DX: I11.0 Hypertensive heart disease with heart failure (principal); I50.21 Acute systolic (congestive) heart failure; J18.9 Pneumonia, unspecified organism; J96.01 Acute respiratory failure with hypoxia; J90 Pleural effusion, not elsewhere classified; R04.2 Hemoptysis; I42.9 Cardiomyopathy, unspecified; M79.10 Myalgia, unspecified site; K21.9 Gastro-esophageal reflux disease without esophagitis; Z87.891 Personal history of nicotine dependence; K29.00 Acute gastritis without bleeding; E87.6 Hypokalemia; I95.9 Hypotension, unspecified; Z79.51 Long term (current) use of inhaled steroids
CPT/HCPCS: 12345; 32555; 36415; 71045; 71275; 76604; 80048; 80053; 80061; 81003; 83036; 83615; 83690; 83735; 83880; 84145; 84443; 84484; 85025; 85378; 85610; 86140; 87040; 87205; 87426; 87804; 93005; 93306; 93454; 93970; 96372; 96375; 97112; 97116; 97161; 97530; 99283; C1769; C1887; C1894; C8924; J0696; J1160; J1250; J1644; J1650; J1940; J1956; J2060; J2250; J2405; J2550; J3010; J7030; Q0144; Q0163; Q9956; Q9967

== ENCOUNTER 2020-06-29 11:59 | Outpatient (CLI) | payer MEDICAID, SELFPAY ==
[2020-06-29 12:48] LABS: Blood Urea Nitrogen 29 mg/dL (6-20); Calcium 8.5 mg/dL (8.5-10.5); Carbon Dioxide 24 mmol/L (22-29); Glucose 110 mg/dL (65-115)
[2020-06-29 12:54] LABS: Anion Gap 16.8 (5-19); Chloride 95 mmol/L (98-107); Osmolality Calculated 272 mOsm/kg (285-295); Potassium 3.8 mmol/L (3.5-5.1); Sodium 132 mmol/L (136-145)
[2020-06-29 13:51] LABS: Digoxin 0.9 ng/mL (0.6-1.2)
== END 2020-06-29 12:00 | disposition home or self-care (01) ==
LOC: LAB 12:02
PROVIDERS: PCP Family Medicine; Visit Provider Internal Medicine
DX: I50.9 Heart failure, unspecified (principal)
CPT/HCPCS: 36415; 80048; 80162

== ENCOUNTER → 2020-07-16 09:12 | Outpatient (BNVA) | payer MEDICAID, SELFPAY | PROVIDERS: PCP Family Medicine; Visit Provider Family Medicine | DX: R10.9 Unspecified abdominal pain (principal); R31.9 Hematuria, unspecified; I10 Essential (primary) hypertension | CPT/HCPCS: 80053; 81000; 81003 ==

== ENCOUNTER 2020-10-02 13:10 | Outpatient (CLI) | payer MEDICAID, SELFPAY ==
--- NOTE | 2020-10-02 13:13 | USCV_ITS ---
Elizabeth Wright Age: 60 Gender: F : 1960 Exam Date: 10/02/2020 13:42 Ordering Phys: Bailee Milner MD ([email or web address]) Technologist: Monica Sosa Exam Location: [facility] Indication: CHF BP: / HR: Rhythm: Sinus Technical Quality: Adequate MEASUREMENTS (Male / Female) Normal Values 2D ECHO LV Diastolic Diameter PLAX 7.0 cm 4.2 - 5.9 / 3.9 - 5.3 cm LV Systolic Diameter PLAX 6.3 cm LV Chamber Size 6.7 cm IVS Diastolic Thickness 1.0 cm 0.6 - 1.0 / 0.6 - 0.9 cm IVS Systolic Thickness 0.9 cm LVPW Diastolic Thickness 1.1 cm 0.6 - 1.0 / 0.6 - 0.9 cm LVPW Systolic Thickness 1.3 cm RV Chamber Size 2.8 cm LVOT Diameter 1.8 cm LV Ejection Fraction 2D Teich 19.6 % LV Ejection Fraction MOD 2C 18.1 % LV Ejection Fraction 2C AL 17.9 % LA Diameter 3.0 cm LA Width 3.5 cm LA Height 4.7 cm RA Width 3.3 cm RA Height 4.5 cm Aorta at Sinotubular Diameter 2.4 cm M-MODE LV Diastolic Diameter MM 7.1 cm 4.2 - 5.9 / 3.9 - 5.3 cm LV Systolic Diameter MM 6.5 cm LV Ejection Fraction MM Teich 17.3 % IVS Diastolic Thickness MM 1.1 cm 0.6 - 1.0 / 0.6 - 0.9 cm IVS Systolic Thickness MM 1.1 cm LVPW Diastolic Thickness MM 1.0 cm 0.6 - 1.0 / 0.6 - 0.9 cm LVPW Systolic Thickness MM 1.3 cm RV Diastolic Diameter MM 1.6 cm Aortic Annulus Diameter 2.8 cm LA Ao Ratio MM 1.1 MV E Point Septal Separation 2.7 cm DOPPLER AV Peak Velocity 110.0 cm/s LVOT Peak Velocity 104.0 cm/s AV Area Cont Eq vti 2.2 cm squared AV Area Cont Eq pk 2.4 cm squared MV Area PHT 5.5 cm squared Mitral E to A Ratio 0.8 MV E' Velocity 43.0 cm/s Mitral E to MV E' Ratio 16.3 Mitral E to LV E' Lateral Ratio 14.8 Mitral E to LV E' Septal Ratio 18.1 TR Peak Velocity 279.8 cm/s TR Peak Gradient 31.3 mmHg TR Mean Velocity 216.9 cm/s TR Mean Gradient 20.4 mmHg TR Velocity Time Integral 99.4 cm TV Peak E Velocity 29.0 cm/s Right Atrial Pressure 8.0 mmHg Pulmonary Artery Systolic Pressu 39.3 mmHg PV Peak Velocity 41.0 cm/s RV Acceleration Time 0.1 s RV Ejection Time 0.3 s RV AcT/ET 0.3 FINDINGS Left Ventricle Severely increased left ventricular cavity size. Severely decreased left ventricular systolic function. Global left ventricular hypokinesis. Left ventricular ejection fraction is estimated at 17 %. Grade I/IV diastolic dysfunction (abnormal relaxation filling pattern), normal to mildly elevated filling pressures. Right Ventricle The right ventricle is normal in size and function. Mild pulmonary hypertension, RVSP 39.3 mmHg. Right Atrium The right atrium is normal in size. Left Atrium The left atrium is normal in size. Mitral Valve Moderately thickened mitral valve. No mitral valve stenosis. Moderate mitral valve regurgitation. Aortic Valve Structurally normal aortic valve without significant sclerosis or stenosis. There is no aortic regurgitation. Tricuspid Valve Moderate tricuspid valve regurgitation. Pulmonic Valve Structurally normal pulmonic valve without significant stenosis. There is no pulmonic regurgitation. Pericardium Normal pericardium without effusion. Aorta Normal ascending aorta dimension. CONCLUSIONS 1-Severely increased left ventricular cavity size. Severely decreased left ventricular systolic function. Global left ventricular hypokinesis. Left ventricular ejection fraction is estimated at 17 %. Grade I/IV diastolic dysfunction (abnormal relaxation filling pattern), normal to mildly elevated filling pressures. 2-The right ventricle is normal in size and function. Mild pulmonary hypertension, RVSP 39.3 mmHg. 3-Moderately thickened mitral valve. No mitral valve stenosis. Moderate mitral valve regurgitation. 4-Structurally normal aortic valve without significant sclerosis or stenosis. There is no aortic regurgitation. 5-Moderate tricuspid valve regurgitation. 6-There is no pericardial effusion. 6-Right atrial pressure is around 20 mm of mercury. 7-No significant change since the prior echocardiogram study of 06/19/2020. Bailee Milner MD (Electronically Signed) Final Date: 03 October 2020 16:05 S
== END 2020-10-02 13:11 | disposition home or self-care (01) ==
LOC: US 13:10
PROVIDERS: PCP Family Medicine; Visit Provider Internal Medicine Cardiovascular Disease
DX: I50.9 Heart failure, unspecified (principal); I27.20 Pulmonary hypertension, unspecified; I08.3 Combined rheumatic disorders of mitral, aortic and tricuspid valves
CPT/HCPCS: 93306

== ENCOUNTER 2020-10-10 10:47 | Outpatient (CLI) | payer MEDICAID, SELFPAY | END 2020-10-10 10:48 | disposition home or self-care (01) | LOC: LAB 07-24 14:27 | PROVIDERS: PCP Family Medicine; Visit Provider Thoracic Surgery (Cardiothoracic Vascular Surgery) | DX: Z01.812 Encounter for preprocedural laboratory examination (principal); Z20.828 Contact with and (suspected) exposure to other viral communicable diseases | CPT/HCPCS: 36415; 36592; 80048; 81003; 85025; 85610; 87635 ==

== ENCOUNTER → 2020-11-15 09:38 | Outpatient (BNVA) | payer MEDICAID, SELFPAY | PROVIDERS: PCP Family Medicine; Referring Provider Internal Medicine Cardiovascular Disease; Visit Provider Internal Medicine Cardiovascular Disease | DX: Z20.822 Contact with and (suspected) exposure to COVID-19 (principal); I42.8 Other cardiomyopathies; I50.20 Unspecified systolic (congestive) heart failure; I42.0 Dilated cardiomyopathy | CPT/HCPCS: 80048; 81003; 85025; 87086; 87635 ==

== ENCOUNTER → 2021-01-11 12:29 | Outpatient (BNVA) | payer MEDICAID, SELFPAY | PROVIDERS: PCP Family Medicine; Visit Provider Internal Medicine Cardiovascular Disease | DX: I11.0 Hypertensive heart disease with heart failure (principal); I42.0 Dilated cardiomyopathy; I50.23 Acute on chronic systolic (congestive) heart failure | CPT/HCPCS: 80048; 80162; 85025 ==

== ENCOUNTER → 2021-04-19 09:09 | Outpatient (BNVA) | payer MEDICAID, SELFPAY | PROVIDERS: PCP Family Medicine; Visit Provider Nurse Practitioner Family | DX: Z20.822 Contact with and (suspected) exposure to COVID-19 (principal); Z95.810 Presence of automatic (implantable) cardiac defibrillator; I50.20 Unspecified systolic (congestive) heart failure; I42.0 Dilated cardiomyopathy | CPT/HCPCS: 80048; 80162; 87635 ==

== ENCOUNTER → 2021-07-09 15:53 | Outpatient (BNVA) | payer MEDICAID, SELFPAY | PROVIDERS: PCP Family Medicine; Visit Provider Family Medicine | DX: I50.23 Acute on chronic systolic (congestive) heart failure; K21.9 Gastro-esophageal reflux disease without esophagitis; G47.00 Insomnia, unspecified; I50.20 Unspecified systolic (congestive) heart failure; Z13.220 Encounter for screening for lipoid disorders; Z13.6 Encounter for screening for cardiovascular disorders; R73.03 Prediabetes; G47.01 Insomnia due to medical condition; E87.6 Hypokalemia; I11.0 Hypertensive heart disease with heart failure | CPT/HCPCS: 80053; 80061; 83036 ==

== ENCOUNTER → 2021-08-22 13:52 | Outpatient (BNVA) | payer MEDICAID, SELFPAY | PROVIDERS: PCP Family Medicine; Visit Provider Nurse Practitioner Family | DX: I50.20 Unspecified systolic (congestive) heart failure (principal); Z95.810 Presence of automatic (implantable) cardiac defibrillator | CPT/HCPCS: 80048; 83880 ==

== ENCOUNTER 2021-10-30 10:58 | Emergency (ER) | payer MEDICAID, SELFPAY ==
[2021-10-30 10:59] VITALS: BP 97/57; PULSE 69; RESP 13; TEMP 36.8; O2SAT 92; BMI 23.7
--- NOTE | 2021-10-30 11:54 | W.ED.SYNCOPE ---
HPI - Syncope General: Chief Complaint: Syncope Stated Complaint: SYNCOPE Time Seen by Provider: 10/30/21 11:12 Source: patient and family Mode of arrival: EMS History of Present Illness: HPI narrative: 61-year-old female with a history of dilated cardiomyopathy, s/p BAG CUTTER-D placement in November of this year. This morning she was woken up 4-5 times by the defibrillator alarm. She did not receive any discharges. 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 Milner), and during the visit had sudden onset of nausea, vomiting, and a syncopal event, and they called the ambulance to take her here to the ER. Her blood pressures have been running lower than usual, and she has had orthostatic dizziness intermittently over the past few weeks. Feels cold all the time, temp 97 No recent medication changes. Her last Echo was 10/2020, EF 17% Associated symptoms: Reports headache(s), lightheadedness and nausea; Deny fever(s) Review of Systems General: Reports: 10 or more systems reviewed and unremarkable except in HPI and below Const: Reports: chills, change in appetite, fatigue and malaise; Denies: fever(s) Eyes: Denies: change in vision or blurry vision Card: Reports: palpitations, lightheadedness and syncope; Denies: edema or swelling of feet/ankles Resp: Denies: dyspnea, productive cough or wheezing GI: Reports: nausea and vomiting Skin/Breast: Denies: rash, pruritus or erythema Neuro: Reports: headache(s) and dizziness PFS ED PFSH: Medical History Abnormal endoscopy of upper gastrointestinal tract Cardiac resynchronization therapy defibrillator (BAG CUTTER-D) in place Chronic GERD Dilated cardiomyopathy H/O pleurisy Hypertension Insomnia Systolic congestive heart failure with reduced left ventricular function, NYHA class 3 Surgical History H/O: hysterectomy Hx of cholecystectomy Family History Mother Cancer Hypertension Diabetes Father Hypertension Diabetes Social History Smoking and tobacco status: former smoker Second hand smoke exposure: Yes Alcohol intake: never Female Reproductive History: Spontaneous abortions: No Physical Exam Const: COMMON NORMALS: no acute distress, average body habitus and patient oriented x3 GENERAL APPEARANCE: cooperative, comfortable, ill appearing and frail appearing; not diaphoretic and not Edematous ORIENTATION/CONSCIOUSNESS: Yes awake, Yes oriented to person, Yes oriented to place and Yes oriented to time HENMT: COMMON NORMALS: normocephalic and atraumatic HEAD & SCALP: normocephalic and atraumatic FACE & SINUS: normal facial exam and face symmetric Eye: COMMON NORMALS: Equal, round and reactive pupils present, EOMs intact bilaterally, conjunctivae normal and no scleral icterus CONJUNCTIVA: Yes conjunctivae normal PUPIL: Yes Equal, round and reactive pupils present Neck/C-Spine: COMMON NORMALS: full ROM, no lymphadenopathy, supple and no JVD Chest: COMMONS NORMALS: normal inspection of the chest and normal palpation of entire chest wall CHEST: Yes Pacemaker present Resp: COMMON NORMALS: normal respiratory effort, No retractions, No use of accessory muscles and clear to auscultation bilaterally AUSCULTATION: clear to auscultation bilaterally Cardio: COMMON NORMALS: no JVD, regular rate and regular rhythm RATE: regular rate RHYTHM: regular rhythm GI: COMMON NORMALS: Normal to inspection, nondistended, normoactive bowel sounds present, Soft to palpation and non-tender PALPATION: Yes Soft to palpation Extremity: COMMON NORMALS: normal to inspection, full ROM, capillary refill normal and no clubbing, cyanosis or edema Neuro: COMMON NORMALS: patient oriented x3, CN's II-XII intact bilaterally, moves all extremities and no focal motor deficits SENSORIUM/ORIENTATION: Yes oriented to person, Yes oriented to place and Yes oriented to time Psych: COMMON NORMALS: mental status grossly normal, Normal thought process present and cooperative THOUGHT PROCESS: Normal thought process present Skin: COMMON NORMALS: no rashes or lesions noted, no wounds and turgor normal GENERAL SKIN EXAM: no rashes or lesions noted and turgor normal Course Vital Signs: Vital signs: Vital Signs Temperature 98.3 F 10/30/21 10:59 Pulse Rate 87 10/30/21 15:29 Respiratory Rate 17 10/30/21 15:29 Blood Pressure 91/56 10/30/21 15:29 Pulse Oximetry 98 10/30/21 15:29 MDM - Syncope MDM Narrative: Medical decision making narrative: 61-year-old female was woken up by defibrillator alarms this morning 4-5 times. No discharges. She went to cardiology to have her device interrogated, but had a sudden onset nausea and vomiting followed by syncopal event while there. Hypotensive, lethargic: blood pressures 90s/50s, which is much lower than her baseline. Lab results consistent with volume depletion, hypokalemia. UTI, urine sent for culture, Rocephin 1 g IV x1 P.o. potassium replacement, 500 cc fluid bolus: Patient's symptoms improved significantly, blood pressures improved to 100s/ 60s Repeat echo: Consulted with Dr. Kelly who was able to review the images. Her ejection fraction is now closer to 30%. He recommended decreasing Lasix to 20 mg once daily No events recorded on device interrogation. The RV impedance was slightly high at 103 which is probably what triggered the alarm. Otherwise report says that the device is functioning appropriately. Keflex 500 mg p.o. twice daily for 5 days Follow-up with cardiology within 3 to 4 days, syncope precautions. Differential Diagnosis: Syncope differential diagnosis: Likely syncope due to orthostatic hypotension, complete atrioventricular block, pulmonary embolism and dehydration Medical Records: Attestation: I reviewed the patient's medical records. Lab Data: Attestation: I reviewed the patient's lab results. Labs: Lab Results 10/30/21 10/30/21 10/30/21 12:21 12:21 12:21 WBC 6.2 10^3/uL 10^3/ uL (4.0-10.0) RBC 5.19 10^6/uL 10^6 /uL (4.1-5.3) Hgb 14.4 g/dL g/dL (11.5-15.3) Hct 44.0 % % (37.0-47.0) MCV 84.8 fl fl (81-99) MCH 27.7 pg L pg (28.0-34.0) MCHC 32.7 g/dL g/dL (30.0-36.0) RDW 13.0 % % (12.1-15.1) Plt Count 172 10^3/cmm 10^3 /cmm (130-400) MPV 10.3 fL fL (7.4-10.4) Neut % (Auto) 69.2 % % Lymph % (Auto) 19.4 % % Monroe % (Auto) 10.5 % % Eos % (Auto) 0.3 % % Baso % (Auto) 0.3 % % Neut # (Auto) 4.27 10^3/uL 10^3 /uL (1.8-7.7) Lymph # (Auto) 1.2 10^3/uL 10^3/ uL (0.8-4.8) Monroe # (Auto) 0.7 10^3/uL 10^3/ uL (0.2-0.9) Eos # (Auto) 0.0 10^3/uL 10^3/ uL (0.0-0.8) Baso # (Auto) 0.0 10^3/uL 10^3/ uL (0.0-0.1) Nucleated RBC % (a uto) 0 % % Nucleated RBCs # 0.0 /100WBC /100W BC Sodium 136 mmol/L mmol/L (136-145) Potassium 3.2 mmol/L L mmol /L (3.5-5.1) Chloride 95 mmol/L L mmol/ L (98-107) Carbon Dioxide 25 mmol/L mmol/L (22-29) Anion Gap 19.2 H (5-19) BUN 17 mg/dL mg/dL (8-23) Creatinine 1.2 mg/dL H mg/dL (0.5-0.9) GFR Calculation 45.7 mL/min L mL/ min (90-130) Glucose 108 mg/dL mg/dL (65-115) Calculated Osmolal ity 284 mOsm/kg L mOs m/kg (285-295) Calcium 8.4 mg/dL L mg/dL (8.5-10.5) Magnesium 2.3 mg/dL mg/dL (1.7-2.3) Total Bilirubin 0.3 mg/dL mg/dL (0.15-1.2) AST 31 U/L U/L (0-32) ALT 27 U/L U/L (0-33) Alkaline Phosphata se 104 IU/L IU/L (35-105) Troponin T Baselin e 11 ng/L H ng/L (0-10) Troponin T 120 Min [place] Troponin T Total Protein 7.3 g/dL g/dL (6.6-8.7) Albumin 4.6 g/dL g/dL (3.5-5.2) Globulin 2.7 g/dL g/dL (1.3-4.6) Urine Color Urine Appearance Urine pH Ur Specific Gravit y Urine Protein Urine Glucose (UA) Urine Ketones Urine Blood Urine Nitrate Urine Bilirubin Urine Urobilinogen Ur Leukocyte Liliana ase Urine RBC Urine WBC Ur Squamous Epith Cells Amorphous Sediment Urine Bacteria Urine Mucus 10/30/21 10/30/21 12:21 14:23 WBC RBC Hgb Hct MCV MCH MCHC RDW Plt Count MPV Neut % (Auto) Lymph % (Auto) [place] % (Auto) Eos % (Auto) Baso % (Auto) Neut # (Auto) Lymph # (Auto) [place] # (Auto) Eos # (Auto) Baso # (Auto) Nucleated RBC % (a uto) Nucleated RBCs # Sodium Potassium Chloride Carbon Dioxide Anion Gap BUN Creatinine GFR Calculation Glucose Calculated Osmolal ity Calcium Magnesium Total Bilirubin AST ALT Alkaline Phosphata se Troponin T Baselin e Troponin T 120 Min [place] 9.04 ng/L ng/L (0-10) Delta Troponin T -1.96 ABS# L ABS# (0-10) Total Protein Albumin Globulin Urine Color Yellow (Yellow) Urine Appearance Sl hazy (CLEAR) Urine pH 5 (5-7) Ur Specific Gravit y 1.020 (1.005-1.030) Urine Protein Trace (Negative) Urine Glucose (UA) Norm (Normal) Urine Ketones Negative (Negative) Urine Blood Neg (Negative) Urine Nitrate Positive H (Negative) Urine Bilirubin Neg (Negative) Urine Urobilinogen Norm mg/dL mg/dL (Negative) Ur Leukocyte Liliana ase 1+ H (Negative) Urine RBC None /hpf /hpf (0-2) Urine WBC 25-40 /hpf H /hpf (0-5) Ur Squamous Epith Cells 10-15 /hpf H /hpf (0-5) Amorphous Sediment Not Reportable Urine Bacteria 3+ /hpf H /hpf (NONE) Urine Mucus Trace /hpf /hpf Discharge Plan Discharge Patient Disposition: Home Clinical Impression: Hypotension, iatrogenic, Syncope due to orthostatic hypotension, Implantable defibrillator reprogramming/check UTI (urinary tract infection) Qualifiers: Urinary tract infection type: acute cystitis Hematuria presence: without hematuria Qualified Code(s): N30.00 - Acute cystitis without hematuria Condition: Stable Prescriptions: New Lasix 20 mg tablet 20 mg PO QAM Qty: 30 RF: 0 cephalexin 500 mg capsule 500 mg PO BID 5 Days Qty: 10 RF: 0 Discontinued furosemide 40 mg tablet 40 mg PO BID Qty: 180 RF: 3 No Action albuterol sulfate [ProAir HFA] 90 mcg/actuation HFA aerosol inhaler 2 puff INHALATION Q6H PRN (Reason: Shortness Of Breath) RF: 0 digoxin 62.5 mcg (0.0625 mg) tablet 62.5 mcg PO DAILY Qty: 90 RF: 3 pantoprazole 40 mg tablet,delayed release (DR/EC) 40 mg PO DAILY 90 Days Qty: 90 RF: 1 Entresto 24-26 mg tablet 0.5 tab PO BID Qty: 90 RF: 3 carvedilol 3.125 mg tablet 3.125 mg PO BID Qty: 180 RF: 3 spironolactone 25 mg tablet 12.5 mg PO DAILY Qty: 15 RF: 6 trazodone 50 mg tablet 50 mg PO DAILY PRN (Reason: Insomnia) RF: 0 Discharge Orders: Discharge ED (Routine); Ordered 10/30/21 Ordered By: Alivia Pinedo Referrals: Leatha Dimas MD [Primary Care Provider] - Discharge Diet: Usual diet Discharge Activity: Resume usual activity Patient Instructions: Hypotension (ED) Activity Restrictions/Additional Instructions: Your furosemide dose has been decreased to 20 mg once a day, in the morning. Continue all of your other medications as prescribed. Call to schedule follow-up appointment with your salesperson jewelry in the next 3 to 4 days for recheck. Return immediately to the ER if you develop chest pain, difficulty breathing, recurrent fainting, or any other concerning changes. Coding Level of Care Code ED Provider Network Analyst for Haylee Fwnery Exam Comprehensive
[2021-10-30 12:30] LABS: Basophils % 0.3 %; Eosinophils % 0.3 %; Hemoglobin 14.4 g/dL (11.5-15.3); Lymphocytes # 1.2 10^3/uL (0.8-4.8); Lymphocytes % 19.4 %; Mean Corpuscular HGB Conc 32.7 g/dL (30.0-36.0); Mean Corpuscular Hemoglobin 27.7 pg (28.0-34.0); Mean Corpuscular Volume 84.8 fl (81-99); Mean Platelet Volume 10.3 fL (7.4-10.4); Monocytes # 0.7 10^3/uL (0.2-0.9); Monocytes % 10.5 %; Neutrophils # 4.27 10^3/uL (1.8-7.7); Neutrophils % 69.2 %; Nucleated Red Blood Cells % 0 %; Platelet Count 172 10^3/cmm (130-400); Red Blood Count 5.19 10^6/uL (4.1-5.3); White Blood Count 6.2 10^3/uL (4.0-10.0)
--- NOTE | 2021-10-30 12:56 | PC.NURSE ---
Spoke with staff for pacemaker. Report to be sent.
[2021-10-30 13:08] LABS: Alanine Aminotransferase 27 U/L (0-33); Albumin Level 4.6 g/dL (3.5-5.2); Alkaline Phosphatase 104 IU/L (35-105); Aspartate Amino Transferase 31 U/L (0-32); Blood Urea Nitrogen 17 mg/dL (8-23); Calcium 8.4 mg/dL (8.5-10.5); Carbon Dioxide 25 mmol/L (22-29); Chloride 95 mmol/L (98-107); Globulin 2.7 g/dL (1.3-4.6); Glomerular Filtration Rate 45.7 mL/min (90-130); Glucose 108 mg/dL (65-115); Magnesium 2.3 mg/dL (1.7-2.3); Osmolality Calculated 284 mOsm/kg (285-295); Sodium 136 mmol/L (136-145); Total Bilirubin 0.3 mg/dL (0.15-1.2); Total Protein 7.3 g/dL (6.6-8.7)
[2021-10-30 13:10] LABS: Add Urine Microscopic? YES; Anion Gap 19.2 (5-19); Bilirubin Urine Neg (Negative); Blood Urine Neg (Negative); Glucose Urine UA Norm (Normal); Ketones Urine Negative (Negative); Leukocyte Esterase Urine 1+ (Negative); Nitrate Urine Positive (Negative); Potassium 3.2 mmol/L (3.5-5.1); Protein Urine Trace (Negative); Urine Appearance SL Hazy (CLEAR); Urine Color Yellow (Yellow); Urobilinogen Urine Norm (Negative); pH Urine 5 (5-7)
--- NOTE | 2021-10-30 13:16 | USCV_ITS ---
Elizabeth Wright Age: 61 Gender: F : 1960 Exam Date: 10/30/2021 13:48 Ordering Phys: Alivia Pinedo MD Technologist: Sarai Becerra [place] [facility] [place] HYPOTENSION, SHOCK, EVAL FOR LVEF BP: 97 / 57 HR: 71 Rhythm: Sinus Technical Quality: Adequate MEASUREMENTS (Male / Female) Normal Values 2D ECHO LV Diastolic Diameter PLAX 4.5 cm 4.2 - 5.9 / 3.9 - 5.3 cm LV Systolic Diameter PLAX 3.4 cm IVS Diastolic Thickness 1.4 cm 0.6 - 1.0 / 0.6 - 0.9 cm IVS Systolic Thickness 1.3 cm LVPW Diastolic Thickness 1.2 cm 0.6 - 1.0 / 0.6 - 0.9 cm LVPW Systolic Thickness 1.7 cm LVOT Diameter 2.0 cm LV Ejection Fraction 2D Teich 48.2 % LV Ejection Fraction MOD 2C 36.7 % LV Ejection Fraction 2C AL 36.2 % LA Diameter 2.4 cm LA Width 2.3 cm LA Height 3.8 cm RA Width 3.0 cm RA Height 3.2 cm Aorta at Sinotubular Diameter 2.1 cm M-MODE Aortic Annulus Diameter 2.3 cm LA Ao Ratio MM 1.1 MV E Point Septal Separation 1.3 cm DOPPLER Right Atrial Pressure 3.0 mmHg FINDINGS Left Ventricle Dilated left ventricle. Severely decreased left ventricular systolic function. Left ventricular ejection fraction is estimated at 20-25 %. Severe global hypokinesis. Abnormal septal motion. Right Ventricle Normal right ventricular size and systolic function. ICD wire visualized in right ventricle. Right Atrium Normal right atrial size. ICD wire visualized in right atrium. Left Atrium Mildly increased left atrial size. Mitral Valve Thickened mitral valve. Aortic Valve Aortic valve not well visualized. Tricuspid Valve Structurally normal tricuspid valve. Pulmonic Valve Pulmonic valve not well visualized. Pericardium No pericardial effusion. Aorta Normal sized aortic root. CONCLUSIONS 1. This is a limited 2 D echo study. 2. Dilated left ventricle. Severely decreased left ventricular systolic function. Left ventricular ejection fraction is estimated at 20-25 %. Severe global hypokinesis. Abnormal septal motion. 3. There may not have been any significant change when compared to study dated 10/02/2020. June Gomez MD (Electronically Signed) Final Date: 02 November 2021 17:23 S
[2021-10-30 13:22] LABS: Troponin(5th) Baseline 11 ng/L (0-10)
[2021-10-30 13:25] LABS: Add Urine Culture? Yes; Bacteria Urine 3+ /hpf; Mucus Urine TRACE /hpf; WBC Urine 25-40 /hpf (0-5)
[2021-10-30] MEDS: cefTRIAXone 1,000 MG in sodium chloride 0.9% (plus) 50 ML 100 MG IV (13:36)
[2021-10-30] MEDS: sodium chloride 0.9% 500 ML IV (13:44)
[2021-10-30] MEDS: potassium chloride ER 20 mEq Tablet 40 MEQ PO (14:27)
[2021-10-30 15:02] LABS: Troponin 5 2HR 9.04 ng/L (0-10)
[2021-10-30 15:03] LABS: Troponin 5 2HR Delta -1.96 ABS# (0-10)
[2021-10-30 15:29] VITALS: BP 91/56; PULSE 87; RESP 17; O2SAT 98
== END 2021-10-30 15:46 | disposition home or self-care (01) ==
PROVIDERS: Emergency Provider Family Medicine; PCP Family Medicine
DX: I95.1 Orthostatic hypotension (principal); N30.00 Acute cystitis without hematuria; I95.89 Other hypotension; Z95.810 Presence of automatic (implantable) cardiac defibrillator; I11.0 Hypertensive heart disease with heart failure; I50.20 Unspecified systolic (congestive) heart failure; Z87.891 Personal history of nicotine dependence
CPT/HCPCS: 80053; 81001; 83735; 84484; 85025; 87077; 87086; 87186; 93308; 96365; 99283; J0696; J7040

== ENCOUNTER → 2022-01-31 09:25 | Outpatient (BNVA) | payer MEDICAID, SELFPAY | PROVIDERS: PCP Family Medicine; Visit Provider Internal Medicine Cardiovascular Disease | DX: Z53.9 Procedure and treatment not carried out, unspecified reason (principal) | CPT/HCPCS: 93284 ==

== ENCOUNTER → 2022-02-03 14:26 | Outpatient (BNVA) | payer MEDICAID, SELFPAY | PROVIDERS: PCP Family Medicine; Visit Provider Internal Medicine Cardiovascular Disease | DX: I42.0 Dilated cardiomyopathy (principal); F41.9 Anxiety disorder, unspecified; I11.0 Hypertensive heart disease with heart failure; Z87.891 Personal history of nicotine dependence | CPT/HCPCS: 99214 ==

== ENCOUNTER → 2022-02-05 10:18 | Outpatient (BNVA) | payer MEDICAID, SELFPAY | PROVIDERS: PCP Family Medicine; Visit Provider Family Medicine | DX: E87.6 Hypokalemia (principal) | CPT/HCPCS: 80048 ==

== ENCOUNTER → 2022-06-27 10:23 | Outpatient (BNVA) | payer MEDICAID, SELFPAY | PROVIDERS: PCP Family Medicine; Visit Provider Internal Medicine Cardiovascular Disease | DX: I11.0 Hypertensive heart disease with heart failure (principal); I50.20 Unspecified systolic (congestive) heart failure; F41.9 Anxiety disorder, unspecified; I42.0 Dilated cardiomyopathy; Z95.810 Presence of automatic (implantable) cardiac defibrillator; Z87.891 Personal history of nicotine dependence | CPT/HCPCS: 99214 ==

== ENCOUNTER → 2022-08-27 10:11 | Outpatient (BNVA) | payer MEDICAID, SELFPAY | PROVIDERS: PCP Family Medicine; Visit Provider Family Medicine | DX: K21.9 Gastro-esophageal reflux disease without esophagitis (principal); I10 Essential (primary) hypertension; Z13.220 Encounter for screening for lipoid disorders; Z13.6 Encounter for screening for cardiovascular disorders; R73.03 Prediabetes; R53.83 Other fatigue; R53.82 Chronic fatigue, unspecified; Z68.25 Body mass index [BMI] 25.0-25.9, adult; E87.6 Hypokalemia; I50.20 Unspecified systolic (congestive) heart failure | CPT/HCPCS: 80053; 80061; 83036; 83735; 84443 ==

== ENCOUNTER → 2022-12-30 09:06 | Outpatient (BNVA) | payer MEDICARE, MEDICAID, SELFPAY | PROVIDERS: PCP Family Medicine; Visit Provider Internal Medicine Cardiovascular Disease | DX: Z45.02 Encounter for adjustment and management of automatic implantable cardiac defibrillator (principal) | CPT/HCPCS: 93295; 93296 ==

== ENCOUNTER → 2023-02-02 09:15 | Outpatient (BNVA) | payer MEDICARE, MEDICAID, SELFPAY | PROVIDERS: PCP Family Medicine; Visit Provider Nurse Practitioner Family | DX: I11.0 Hypertensive heart disease with heart failure (principal); I50.20 Unspecified systolic (congestive) heart failure; Z87.891 Personal history of nicotine dependence; Z95.810 Presence of automatic (implantable) cardiac defibrillator | CPT/HCPCS: 99213 ==

== ENCOUNTER 2023-02-06 10:15 | Outpatient (CLI) | payer MEDICARE, MEDICAID, SELFPAY ==
--- NOTE | 2023-02-06 10:27 | XR_ITS ---
WS: [id number] XR lumbar spine 2-3V* [id number] REASON FOR EXAM: M54.50 - FINDINGS: No significant scoliosis. Normal lordosis. Mild superior endplate concave depression in vertebral bodies L1-L3. Unknown chronicity. Intervertebral disc spaces are relatively well-preserved. No spondylolysis identified. No significant listhesis. Mild degenerative changes in the facet joints at L5-S1. XR/XR lumbar spine 2-3V* [id number] IMPRESSION: Compression deformities in the upper lumbar spine of unknown chronicity chronic ity. Subacute compression fracture cannot be excluded, especially of L3.
== END 2023-02-06 10:16 | disposition home or self-care (01) ==
PROVIDERS: PCP Family Medicine; Visit Provider Family Medicine
DX: M54.50 Low back pain, unspecified (principal)
CPT/HCPCS: 72100

== ENCOUNTER 2023-02-09 12:47 | Outpatient (CLI) | payer MEDICARE, MEDICAID, SELFPAY ==
--- NOTE | 2023-02-09 13:00 | USCV_ITS ---
Elizabeth Wright Age: 62 Gender: F : 1960 Exam Date: 02/09/2023 13:30 Ordering Phys: Rakel Henson MD ([email or web address]) Technologist: Stevo Mccabe Exam Location: [facility] – [place] Indication: CHF BP: 90 / 52 HR: 69 Rhythm: Sinus Technical Quality: Adequate MEASUREMENTS (Male / Female) Normal Values 2D ECHO LV Diastolic Diameter PLAX 4.1 cm 4.2 - 5.9 / 3.9 - 5.3 cm LV Systolic Diameter PLAX 3.1 cm IVS Diastolic Thickness 0.7 cm 0.6 - 1.0 / 0.6 - 0.9 cm IVS Systolic Thickness 0.7 cm LVPW Diastolic Thickness 1.1 cm 0.6 - 1.0 / 0.6 - 0.9 cm LVPW Systolic Thickness 1.2 cm LVOT Diameter 2.0 cm LV Ejection Fraction 2D Teich 51.6 % LV Ejection Fraction MOD 2C 60.1 % LV Ejection Fraction 2C AL 60.1 % LA Diameter 3.1 cm LA Width 2.8 cm LA Height 4.2 cm RA Width 2.9 cm RA Height 3.8 cm Aorta at Sinotubular Diameter 2.1 cm IVC Diameter 1.6 cm M-MODE Aortic Annulus Diameter 2.3 cm LA Ao Ratio MM 1.3 MV E Point Septal Separation 0.6 cm DOPPLER AV Peak Velocity 149.0 cm/s LVOT Peak Velocity 123.0 cm/s AV Area Cont Eq vti 2.6 cm squared AV Area Cont Eq pk 2.6 cm squared MV Peak Velocity 84.0 cm/s MV Area PHT 5.0 cm squared Mitral E to A Ratio 0.9 MV E' Velocity 29.0 cm/s Mitral E to MV E' Ratio 4.6 Mitral E to LV E' Lateral Ratio 3.9 Mitral E to LV E' Septal Ratio 5.8 TR Peak Velocity 281.6 cm/s TR Peak Gradient 31.7 mmHg TR Mean Velocity 230.9 cm/s TR Mean Gradient 23.1 mmHg TR Velocity Time Integral 59.4 cm Right Atrial Pressure 3.0 mmHg Pulmonary Artery Systolic Pressu 34.7 mmHg PV Peak Velocity 80.0 cm/s RV Acceleration Time 0.2 s RV Ejection Time 0.3 s RV AcT/ET 0.5 FINDINGS Left Ventricle Mild diffuse hypokinesia with left ventricular ejection fraction of 45 to 50%(visual).Grade I/IV diastolic dysfunction (abnormal relaxation filling pattern), normal to mildly elevated filling pressures. Mildly dilated LV cavity Right Ventricle Catheter/pacemaker wire in the right ventricular cavity. Normal right ventricular size and systolic function. Right Atrium Catheter/pacemaker wire in the right atrial appendage. Left Atrium The left atrium is normal in size. Mitral Valve No gross abnormalities noted Aortic Valve No gross abnormalities noted Tricuspid Valve Trace to mild tricuspid valve regurgitation. Pulmonic Valve No gross abnormalities noted Pericardium Normal pericardium without effusion. Aorta Normal ascending aorta dimension. IVC Normal inferior vena cava. CONCLUSIONS Mild diffuse hypokinesia with left ventricular ejection fraction of 45 to 50%(visual). Grade I/IV diastolic dysfunction (abnormal relaxation filling pattern), normal to mildly elevated filling pressures. Mildly dilated LV cavity. Trace to mild tricuspid valve regurgitation. Estimated pulmonary artery peak systolic pressure 35 mmHg There is no pericardial effusion. There are no intracardiac masses. Compared to the study from 10/30/2021, there is significant improvement of LV ejection fraction from 20 - 25% to 45-50% Dr Rakel Henson MD [facility] (Electronically Signed) Final Date: 12 February 2023 20:01 S
== END 2023-02-09 12:48 | disposition home or self-care (01) ==
LOC: RAD 12:52
PROVIDERS: PCP Family Medicine; Visit Provider Internal Medicine Cardiovascular Disease
DX: R06.09 Other forms of dyspnea (principal); I42.0 Dilated cardiomyopathy; I11.0 Hypertensive heart disease with heart failure; I50.20 Unspecified systolic (congestive) heart failure; Z95.810 Presence of automatic (implantable) cardiac defibrillator
CPT/HCPCS: 36415; 80048; 83880; 93306; 99215

== ENCOUNTER 2023-02-27 11:36 | Outpatient (CLI) | payer MEDICARE, MEDICAID, SELFPAY ==
--- NOTE | 2023-02-27 12:00 | CT_ITS ---
WS: [id number] CT LUMBAR SPINE TECHNIQUE: Noncontrast CT of the lumbar spine with coronal and sagittal reformatted images. CLINICAL INFORMATION: S32.000A - Wedge compression fracture of unspecified lumb... COMPARISON: Radiograph February 06, 2023 DLP: 365.[address] scans at [facility] use at least one of these dose optimization techniques: automated e xposure control; mA and/or kV adjustment per patient size (includes targeted exams where dose is matc hed to clinical indication); or iterative reconstruction. FINDINGS: Mild lumbar curve. No acute compression. No high-grade central canal stenosis. No acute compression f ractures. L1-L2: Normal. L2-L3: Minimal annular bulging. Spinal canal and foramen are patent. Mild facet arthropathy. L3-L4: Mild annular bulging. Moderate facet arthropathy. Narrowing of the subarticular recess bilater ally. Mild central canal stenosis. Foramen are patent. Mild facet arthropathy. L4-L5: Mild annular bulging. Moderate facet arthropathy with ligamentum flavum hypertrophy. Mild cent ral canal stenosis with impingement traversing LEFT L5 nerve root. Mild LEFT foraminal narrowing. L5-S1: Mild annular bulging. Mild LEFT and no significant RIGHT foraminal narrowing. Moderate facet a rthropathy. Visualized pelvic bony structures: Normal. Paravertebral soft tissues: Normal. Cholecystectomy. CT/CT lumbar spine wo con* [id number] IMPRESSION: 1. Mild lumbar curve. No acute compression. No high-grade central canal stenos is. No acute appearing compression fractures. 2. Mild central canal stenosis L3-L4 and L4-L5. Impingement traversing LEFT L5 nerve root in the subarticular recess L4-L5. 3. Mild LEFT L4-L5 foraminal narrowing. 4. Moderate facet arthropathy L3-L4 L4-L5 and L5-S1. 5. Diffuse fatty infiltration liver.
== END 2023-02-27 11:37 | disposition home or self-care (01) ==
LOC: RAD 11:41
PROVIDERS: PCP Family Medicine; Visit Provider Family Medicine
DX: M48.061 Spinal stenosis, lumbar region without neurogenic claudication (principal); M43.9 Deforming dorsopathy, unspecified; M47.817 Spondylosis without myelopathy or radiculopathy, lumbosacral region; K76.0 Fatty (change of) liver, not elsewhere classified
CPT/HCPCS: 72131

== ENCOUNTER → 2023-03-26 10:36 | Outpatient (BNVA) | payer MEDICARE, MEDICAID, SELFPAY | PROVIDERS: PCP Family Medicine; Referring Provider Family Medicine; Visit Provider Orthopaedic Surgery | DX: M47.816 Spondylosis without myelopathy or radiculopathy, lumbar region (principal) | CPT/HCPCS: 99204 ==

== ENCOUNTER 2023-04-02 06:00 | Outpatient (RCR) | payer MEDICARE, MEDICAID, SELFPAY | END 2023-05-01 23:59 | disposition home or self-care (01) | LOC: MPT 06:00 | PROVIDERS: Visit Provider Orthopaedic Surgery | DX: M54.16 Radiculopathy, lumbar region (principal) | CPT/HCPCS: 97110; 97140; 97162 ==

== ENCOUNTER 2023-05-02 06:00 | Outpatient (RCR) | payer MEDICARE, MEDICAID, SELFPAY | END 2023-06-01 23:59 | disposition home or self-care (01) | LOC: MPT 06:00 | PROVIDERS: Visit Provider Orthopaedic Surgery | DX: M54.16 Radiculopathy, lumbar region (principal) | CPT/HCPCS: 97110; 97140 ==

== ENCOUNTER 2023-06-02 06:00 | Outpatient (RCR) | payer MEDICARE, MEDICAID, SELFPAY | END 2023-07-02 23:59 | disposition home or self-care (01) | LOC: MPT 06:00 | PROVIDERS: Visit Provider Orthopaedic Surgery | DX: M54.16 Radiculopathy, lumbar region (principal) | CPT/HCPCS: 97110; 97140; 97530 ==

== ENCOUNTER → 2023-06-24 10:44 | Outpatient (BNVA) | payer MEDICARE, MEDICAID, SELFPAY | PROVIDERS: Visit Provider Family Medicine | DX: D22.9 Melanocytic nevi, unspecified (principal); I10 Essential (primary) hypertension; R73.03 Prediabetes; M54.50 Low back pain, unspecified; Z80.8 Family history of malignant neoplasm of other organs or systems; E87.6 Hypokalemia; Z13.220 Encounter for screening for lipoid disorders; Z13.6 Encounter for screening for cardiovascular disorders | CPT/HCPCS: 80048; 80061; 83036 ==

== ENCOUNTER 2023-07-03 06:00 | Outpatient (RCR) | payer MEDICARE, MEDICAID, SELFPAY | END 2023-08-01 23:59 | disposition home or self-care (01) | LOC: MPT 06:00 | PROVIDERS: PCP Family Medicine; Visit Provider Orthopaedic Surgery | DX: M54.16 Radiculopathy, lumbar region (principal) | CPT/HCPCS: 97110; 97140 ==

== ENCOUNTER → 2023-07-09 14:34 | Outpatient (BNVA) | payer MEDICARE, MEDICAID, SELFPAY | PROVIDERS: PCP Family Medicine; Visit Provider Internal Medicine Cardiovascular Disease | DX: Z45.02 Encounter for adjustment and management of automatic implantable cardiac defibrillator (principal) | CPT/HCPCS: 93296 ==

== ENCOUNTER → 2023-07-16 11:34 | Outpatient (BNVA) | payer MEDICARE, MEDICAID, SELFPAY | PROVIDERS: PCP Family Medicine; Visit Provider Internal Medicine Cardiovascular Disease | DX: I11.0 Hypertensive heart disease with heart failure (principal); I50.20 Unspecified systolic (congestive) heart failure; Z95.810 Presence of automatic (implantable) cardiac defibrillator; I42.0 Dilated cardiomyopathy; J90 Pleural effusion, not elsewhere classified; Z87.891 Personal history of nicotine dependence | CPT/HCPCS: 99213 ==

== ENCOUNTER 2023-08-02 06:00 | Outpatient (RCR) | payer MEDICARE, MEDICAID, SELFPAY | END 2023-09-01 23:59 | disposition home or self-care (01) | LOC: MPT 06:00 | PROVIDERS: PCP Family Medicine; Visit Provider Orthopaedic Surgery | DX: M54.16 Radiculopathy, lumbar region (principal) | CPT/HCPCS: 97110; 97140 ==

== ENCOUNTER → 2023-08-13 10:28 | Outpatient (BNVA) | payer MEDICARE, MEDICAID, SELFPAY | PROVIDERS: PCP Family Medicine; Referring Provider Family Medicine; Visit Provider Dermatology | DX: L72.11 Pilar cyst (principal); L82.1 Other seborrheic keratosis; L82.0 Inflamed seborrheic keratosis; L81.4 Other melanin hyperpigmentation; B07.8 Other viral warts | CPT/HCPCS: 17110; 99203 ==

== ENCOUNTER 2023-09-02 06:00 | Outpatient (RCR) | payer MEDICARE, MEDICAID, SELFPAY | END 2023-10-01 23:59 | disposition home or self-care (01) | LOC: MPT 06:00 | PROVIDERS: PCP Family Medicine; Visit Provider Orthopaedic Surgery | DX: M54.16 Radiculopathy, lumbar region (principal) | CPT/HCPCS: 97110 ==

== ENCOUNTER 2023-10-02 06:00 | Outpatient (RCR) | payer MEDICARE, MEDICAID, SELFPAY | END 2023-11-01 23:59 | disposition home or self-care (01) | LOC: MPT 06:00 | PROVIDERS: PCP Family Medicine; Visit Provider Orthopaedic Surgery | DX: M54.16 Radiculopathy, lumbar region (principal) | CPT/HCPCS: 97110; 97140 ==

== ENCOUNTER 2023-10-06 11:26 | Outpatient (RCR) | payer MEDICARE, MEDICAID, SELFPAY | END 2023-11-01 23:59 | disposition home or self-care (01) | LOC: SPT 11:26 | PROVIDERS: PCP Family Medicine; Visit Provider Family Medicine | DX: R10.2 Pelvic and perineal pain (principal) | CPT/HCPCS: 97110; 97161 ==

== ENCOUNTER 2023-10-06 12:59 | Outpatient (CLI) | payer MEDICARE, MEDICAID, SELFPAY ==
[2023-10-06 13:41] LABS: Alanine Aminotransferase 23 U/L (0-33); Albumin Level 4.7 g/dL (3.5-5.2); Alkaline Phosphatase 82 U/L (35-105); Anion Gap 15.7 (5-19); Aspartate Amino Transferase 22 U/L (0-32); Blood Urea Nitrogen 15 mg/dL (8-23); Calcium 9.2 mg/dL (8.5-10.5); Carbon Dioxide 27 mmol/L (22-29); Chloride 102 mmol/L (98-107); Chol HDL Ratio 6.34 mg/dL (0.0-4.40); Cholesterol 184 mg/dL (0-200); Globulin 2.9 g/dL (1.3-4.6); Glomerular Filtration Rate 63.2 mL/min (90-130); Glucose 100 mg/dL (65-115); HDL Cholesterol 29 mg/dL (60-100); LDL Cholesterol Calculated 106 mg/dL (50-129); LDL HDL Ratio 3.66 RATIO (0.00-3.22); Osmolality Calculated 293 mOsm/kg (285-295); Potassium 3.7 mmol/L (3.5-5.1); Sodium 141 mmol/L (136-145); Thyroid Stimulating Hormone 1.25 uIU/mL (0.27-4.20); Total Bilirubin 0.3 mg/dL (0.15-1.2); Total Protein 7.6 g/dL (6.6-8.7); Triglycerides 243 mg/dL (0-150)
[2023-10-06 14:03] LABS: Estmated Average Glucose 140; Hemoglobin A1C 6.5 % (4.0-6.0)
== END 2023-10-06 13:00 | disposition home or self-care (01) ==
LOC: LAB 13:00
PROVIDERS: PCP Family Medicine; Visit Provider Family Medicine
DX: I10 Essential (primary) hypertension (principal); R53.83 Other fatigue; R73.03 Prediabetes
CPT/HCPCS: 36415; 80053; 80061; 83036; 84443

== ENCOUNTER → 2023-10-19 12:26 | Outpatient (BNVA) | payer MEDICARE, MEDICAID, SELFPAY | PROVIDERS: PCP Family Medicine; Visit Provider Internal Medicine Cardiovascular Disease | DX: I50.9 Heart failure, unspecified (principal); Z95.810 Presence of automatic (implantable) cardiac defibrillator | CPT/HCPCS: 36415; 80162; 93296; 99214 ==

== ENCOUNTER 2023-11-02 06:00 | Outpatient (RCR) | payer MEDICARE, MEDICAID, SELFPAY | END 2023-12-02 23:59 | disposition home or self-care (01) | LOC: MPT 06:00 | PROVIDERS: PCP Family Medicine; Visit Provider Orthopaedic Surgery | DX: M54.16 Radiculopathy, lumbar region (principal) | CPT/HCPCS: 97110 ==

== ENCOUNTER 2023-11-03 09:10 | Day surgery (SDC) | payer MEDICARE, MEDICAID, SELFPAY ==
[2023-11-03] VITALS (11 sets, daily range): BP systolic 102–160; BP diastolic 54–88; PULSE 64–86; RESP 14–24; TEMP 36.1–36.2; O2SAT 95–100; BMI 25.8
[2023-11-03 09:47] LABS: Glucose Point of Care 112 mg/dL (70-110)
--- NOTE | 2023-11-03 09:48 | ECG_ITS ---
[facility] Test Date: 2023-11-03 Pat Name: Elizabeth Wright Department: Room: Gender: Female [employer] Supervisor: : 1960 Requested By: Jus Coe Order Number: [id number] Rebecca MD: Rakel Henson M.D. Measurements Intervals [place] Rate: 70 P: 55 RI: 149 QRS: -26 QRSD: 129 T: 119 QT: 414 QTc: 448 Interpretive Statements A sensed, V paced ELECTRONIC VENTRICULAR PACEMAKER ABNORMAL RHYTHM ECG Compared to ECG 06/19/2020 08:51:26 Sinus rhythm no longer present Left-axis deviation no longer present Electronically Signed On 11-03-2023 21:40:25 MOTOR VEHICLE CLERK by Rakel Henson M.D. [id number]
[2023-11-03] MEDS: midazolam 1 mg/mL INJ 2 mL 2 MG IVP (09:51)
--- NOTE | 2023-11-03 09:56 | W.PM.OPSUD ---
Surgery/Procedure H&P Update DATE OF PROCEDURE: November 03, 2023 DATE H&P PERFORMED: 10/16/23 PRIMARY INDICATION FOR PROCEDURE: Right suboccipital neck mass PLANNED PROCEDURE: Operation Date: 11/03/23 11:00 Proposed Procedures p Excisional biopsy Right suboccipital mass 12747,L72.0(Right) - Ke Prakash MD
[2023-11-03] MEDS: sodium chloride 0.9% 1,000 ML 30 ML IV (10:04)
[2023-11-03] MEDS: ceFAZolin 2,000 MG in sodium chloride 0.9% (plus) 50 ML 100 MG IV (10:12)
--- NOTE | 2023-11-03 10:13 | P.ANESASSM_ITS ---
Pre-Anesthetic Assessment Height/Weight: Height 1.6 m Weight 66.224 kg Temp Pulse Resp BP Pulse Ox O2 Del Method 97.0 F L 64 16 160/88 95 Room Air 11/03/23 09:31 11/03/23 09:31 11/03/23 09:31 11/03/23 09:31 11/03/23 09:31 11/03/23 09:31 Operation Date: 11/03/23 11:00 Proposed Procedures p Excisional biopsy Right suboccipital mass 14180,L72.0(Right) - Ke Prakash MD Familial anesthetic complications: none Was Beta Umair taken within 24 hours: N/A Was Clonidine taken within 24 hours: N/A Last intake: Intake Last Liquid Date 11/02/23 Last Liquid Time 20:30 Last Solid Date 11/02/23 Last Solid Time 20:30 Social No alcohol and No tobacco Exam alert, oriented x 3, clear to auscultation bilaterally and regular rate & rhythm Airway Submandibular: within normal limits Cervical ROM: within normal limits Mallampati: Class II Dentition: chipped CV/HEM Congestive Heart Failure and Hypertension AICD/pacemaker 02/09/23 ECHO Mild diffuse hypokinesia with left ventricular ejection fraction of 45 to 50%(visual). Grade I/IV diastolic dysfunction (abnormal relaxation filling pattern), normal to mildly elevated filling pressures. Mildly dilated LV cavity. Trace to mild tricuspid valve regurgitation. Estimated pulmonary artery peak systolic pressure 35 mmHg There is no pericardial effusion. There are no intracardiac masses. Compared to the study from 10/30/2021, there is significant improvement of LV ejection fraction from 20 - 25% to 45-50% GI Gastroesophageal Reflux Disease Musc/skel Lower Back Pain and Osteoarthritis/DJD Neuropsych Anxiety and Depression Anesthetic Plan ASA status: 3 Anesthesia: General (prone) Medications/Allergies Home Medications Medication Instructions Recorded Confirmed Last Taken Type ProAir HFA 90 mcg/actuation 2 puff inhalation Q6H PRN 02/10/23 10/30/23 Unknown Rx aerosol inhaler (albuterol sulfate) Shortness Of Breath #8.5 grams sacubitril 24 mg-valsartan 26 mg 1 tab PO BID #180 tabs 05/22/23 11/03/23 11/02/23 Rx tablet (Entresto) furosemide 40 mg tablet 40 mg PO DAILY #90 tabs 07/16/23 11/03/23 11/02/23 Rx digoxin 62.5 mcg (0.0625 mg) tablet 62.5 mcg PO DAILY #90 tabs 09/25/23 11/03/23 11/02/23 Rx spironolactone 25 mg tablet 12.5 mg (1/2 x 25 mg) PO DAILY #45 09/25/23 11/03/23 11/02/23 Rx tabs gabapentin 100 mg capsule 200 mg (2 x 100 mg) PO BID PRN 09/29/23 11/03/23 11/02/23 Rx pain 30 days #120 caps hydrocodone 5 mg-acetaminophen 325 1 tab PO DAILY PRN pain 30 days 09/29/23 11/03/23 11/03/23 Rx mg tablet #30 tabs carvedilol 3.125 mg tablet 3.125 mg PO BID #180 tabs 10/19/23 11/03/23 11/03/23 Rx pantoprazole 40 mg tablet,delayed 40 mg PO DAILY 10/30/23 11/03/23 11/02/23 History release Allergies Allergy/AdvReac Type Severity Reaction Status Date / Time ketorolac [From Toradol] Allergy vomit Verified 10/19/23 11:21 Opioids - Morphine Analogues Allergy drops Verified 10/19/23 11:21 blood pressure tramadol [From Ultram] Allergy Unknown Verified 10/19/23 11:21 Current Medications Generic Name Dose Route Start Last Admin Trade Name Freq PRN Reason Stop Dose Admin Sodium Chloride 1,000 mls @ 30 mls/hr 11/03/23 09:30 11/03/23 10:04 Sodium Chloride 0.9% IV 11/04/23 09:29 30 mls/hr .Q24H MARIKA Administration Midazolam HCl 2 mg 11/03/23 09:18 11/03/23 09:51 Midazolam 1 Mg/Ml Inj 2 Ml IVP 2 mg Q5M PRN Administration Preop Anxiety PFSH Anesthesia Medical History Cardiac resynchronization therapy defibrillator (AUTOMATIC SPINNING LATHE OPERATOR-D) in place Systolic congestive heart failure with reduced left ventricular function, NYHA class 3 Dilated cardiomyopathy Insomnia Abnormal endoscopy of upper gastrointestinal tract Hypertension Chronic GERD H/O pleurisy Surgical History Hx of cholecystectomy H/O: hysterectomy Family History Mother Cancer Hypertension Diabetes Father Hypertension Diabetes Social History Smoking and tobacco/nicotine status: former use of tobacco/nicotine Second hand smoke exposure: Yes Alcohol intake: never Substance/Drug Use: never Female Reproductive History Spontaneous abortions: No Data Anesthesia Cardiac Studies: Echocardiogram 02/09/23 Echocardiogram Limited Views 10/30/21 Echocardiogram Ultrasound 10/02/20
[2023-11-03] MEDS: ceFAZolin 1,000 mg SDV 1000 MG IRRIGATION (11:10)
[2023-11-03] MEDS: lidocaine-epi 2% 20 mL INJ INJECTION (11:11)
[2023-11-03] MEDS: neomycin-poly-bacitracin oint 28 gm 1 APPLIC TOPICAL (11:12)
[2023-11-03] MEDS: BUPivacaine 0.5% INJ 10 mL INJECTION (11:12)
--- NOTE | 2023-11-03 11:16 | PM.OP ---
Operative Report Date of procedure: November 03, 2023 Pre-op diagnosis: Right suboccipital subcutanous mass Post-op diagnosis: same Post-op findings: Right subocciptial subcutaneous mass c/w an epidermal inclusion cyst Procedure done: Excisional biopsy of right suboccipital mass Implants: None Specimens removed/disposition: Right suboccipital mass Pathology: Right suboccipital mass Surgeon: Ke Prakash Surgeon: Ke Prakash MD Handcrew Foreman: Chris Nelson Anesthesia: General Estimated blood loss (mL): 5 IV fluids (mL): 400 Complications: None Findings: Right suboccipital mass with an appearance c/w an epidermal inclusion cyst Condition: stable Disposition: PACU Brief History: 63 yo wf with an enlarging right suboccipital mass who desires excisional biopsy. Procedure: The patient was identified in the preoperative holding area and was taken to the operating room and placed on the operating table in the prone position. Prior to this placement the patient received general endotracheal anesthesia. Once the patient was in the proper position the patient's right suboccipital region was shaved and prepped and draped in the usual sterile fashion. A horizontal elliptical incision was made over the right suboccipital mass with a 15 blade. Sharp scissors were then used to excise the mass from the right subsuboccipital region. Once the mass had been excised with an ellipse of skin overlying it, hemostasis was achieved with electrocautery. At this point the wound was closed with interrupted 2-0 Monocryl sutures in the subcu and a running 3-0 Prolene on the skin. The wound was then cleaned and covered with triple antibiotic ointment. The procedure was then terminated and control of the patient was returned to anesthesia where she underwent an uneventful reversal of anesthesia and extubation and was taken to the recovery room in stable condition. There were no operative or anesthetic complications.
[2023-11-03] MEDS: HYDROcodone-acetaminophen 5-325 mg Tablet 1 TAB PO (12:17)
--- NOTE | 2023-11-03 13:40 | ANE.PACU2 ---
Inpatient post-anesthesia follow up: Airway intact: Yes Vital signs: Temperature 97.0 F Pulse Rate 75 Respiratory Rate 19 Blood Pressure 104/63 Pulse Oximetry 95 Oxygen Delivery Me thod Room Air Oxygen Flow Rate 6 Fraction of Inspir ed Oxygen Hydration adequate: Yes Nausea and vomiting: No Pain level: 1 Mental status: Baseline
== END 2023-11-03 12:48 | disposition home or self-care (01) ==
PROVIDERS: PCP Family Medicine; Visit Provider Specialist
PROC: (CPT 21555; principal; 2023-11-03 10:50)
DX: L72.0 Epidermal cyst (principal); I11.0 Hypertensive heart disease with heart failure; I50.9 Heart failure, unspecified; K21.9 Gastro-esophageal reflux disease without esophagitis; Z87.891 Personal history of nicotine dependence
CPT/HCPCS: 21555; 36416; 82962; 88304; 93005; J0690; J1100; J2250; J2405; J2704; J3010; J3490; J7030

== ENCOUNTER 2023-12-03 06:00 | Outpatient (RCR) | payer MEDICARE, MEDICAID, SELFPAY | END 2023-12-31 23:59 | disposition home or self-care (01) | LOC: MPT 06:00 | PROVIDERS: PCP Family Medicine; Visit Provider Orthopaedic Surgery | DX: M54.16 Radiculopathy, lumbar region (principal) | CPT/HCPCS: 97110; 97140 ==

== ENCOUNTER 2024-01-01 06:00 | Outpatient (RCR) | payer MEDICARE, MEDICAID, SELFPAY | END 2024-01-31 23:59 | disposition home or self-care (01) | LOC: MPT 06:00 | PROVIDERS: PCP Family Medicine; Visit Provider Orthopaedic Surgery | DX: M54.16 Radiculopathy, lumbar region (principal) | CPT/HCPCS: 97110 ==

== ENCOUNTER 2024-02-01 06:00 | Outpatient (RCR) | payer MEDICARE, MEDICAID, SELFPAY | END 2024-03-01 23:59 | disposition home or self-care (01) | LOC: MPT 06:00 | PROVIDERS: PCP Family Medicine; Visit Provider Orthopaedic Surgery | DX: M54.16 Radiculopathy, lumbar region (principal) | CPT/HCPCS: 97110 ==

== ENCOUNTER 2024-03-02 06:00 | Outpatient (RCR) | payer MEDICARE, MEDICAID, SELFPAY | END 2024-04-01 23:59 | disposition home or self-care (01) | LOC: MPT 06:00 | PROVIDERS: PCP Family Medicine; Visit Provider Orthopaedic Surgery | DX: M54.16 Radiculopathy, lumbar region (principal) | CPT/HCPCS: 97110 ==

== ENCOUNTER → 2024-03-29 10:41 | Outpatient (BNVA) | payer MEDICARE, MEDICAID, SELFPAY | PROVIDERS: PCP Family Medicine; Visit Provider Family Medicine | DX: E11.9 Type 2 diabetes mellitus without complications (principal); E11.59 Type 2 diabetes mellitus with other circulatory complications; M54.50 Low back pain, unspecified; G89.29 Other chronic pain; M54.16 Radiculopathy, lumbar region; S32.000A Wedge compression fracture of unspecified lumbar vertebra, initial encounter for closed fracture; M54.42 Lumbago with sciatica, left side; M54.41 Lumbago with sciatica, right side; I10 Essential (primary) hypertension; I50.20 Unspecified systolic (congestive) heart failure; K21.9 Gastro-esophageal reflux disease without esophagitis | CPT/HCPCS: 80048; 83036 ==

== ENCOUNTER 2024-04-02 06:00 | Outpatient (RCR) | payer MEDICARE, MEDICAID, SELFPAY | END 2024-05-01 23:59 | disposition home or self-care (01) | LOC: MPT 06:00 | PROVIDERS: PCP Family Medicine; Visit Provider Family Medicine | DX: M54.16 Radiculopathy, lumbar region (principal) | CPT/HCPCS: 97110; 97164 ==

== ENCOUNTER → 2024-04-18 11:00 | Outpatient (BNVA) | payer MEDICARE, MEDICAID, SELFPAY | PROVIDERS: PCP Family Medicine; Visit Provider Internal Medicine Cardiovascular Disease | DX: R53.82 Chronic fatigue, unspecified (principal); I42.0 Dilated cardiomyopathy; I11.0 Hypertensive heart disease with heart failure; I50.20 Unspecified systolic (congestive) heart failure; Z95.810 Presence of automatic (implantable) cardiac defibrillator; Z87.891 Personal history of nicotine dependence | CPT/HCPCS: 99214 ==

== ENCOUNTER 2024-05-02 06:00 | Outpatient (RCR) | payer MEDICARE, MEDICAID, SELFPAY | END 2024-06-01 23:59 | disposition home or self-care (01) | LOC: MPT 06:00 | PROVIDERS: PCP Family Medicine; Visit Provider Family Medicine | DX: M54.16 Radiculopathy, lumbar region (principal) | CPT/HCPCS: 97110; 97140 ==

== ENCOUNTER 2024-06-02 06:00 | Outpatient (RCR) | payer MEDICAID, SELFPAY | END 2024-07-02 23:59 | disposition home or self-care (01) | LOC: MPT 06:00 | PROVIDERS: PCP Family Medicine; Visit Provider Family Medicine | DX: M54.16 Radiculopathy, lumbar region (principal); M54.2 Cervicalgia; G89.29 Other chronic pain | CPT/HCPCS: 97140 ==

== ENCOUNTER 2024-06-10 09:16 | Outpatient (CLI) | payer MEDICAID, SELFPAY ==
--- NOTE | 2024-06-10 09:25 | XR_ITS ---
WS: [id number] XR cervical spine 3V* [id number] REASON FOR EXAM: M54.2 - Cervicalgia FINDINGS: Mild straightening of the cervical lordosis. The odontoid and vertebral bodies are unremarkable. There is mild narrowing of the C4-C5 disc space with endplate sclerosis and osteophytosis. There is mild narrowing of the C5-C6 disc space. 1.5 mm of anterolisthesis of C3 in relation to C4. XR/XR cervical spine 3V* [id number] IMPRESSION: Degenerative spondylosis as above.
== END 2024-06-10 09:17 | disposition home or self-care (01) ==
PROVIDERS: PCP Family Medicine; Visit Provider Family Medicine
DX: M43.12 Spondylolisthesis, cervical region (principal); M47.892 Other spondylosis, cervical region
CPT/HCPCS: 72040

== ENCOUNTER 2024-07-03 06:00 | Outpatient (RCR) | payer MEDICAID, SELFPAY | END 2024-08-01 23:59 | disposition home or self-care (01) | LOC: MPT 06:00 | PROVIDERS: PCP Family Medicine; Visit Provider Family Medicine | DX: M54.16 Radiculopathy, lumbar region (principal); M54.2 Cervicalgia; G89.29 Other chronic pain | CPT/HCPCS: 97110; 97140 ==

== ENCOUNTER 2024-08-02 06:30 | Outpatient (RCR) | payer MEDICAID, SELFPAY | END 2024-09-01 23:59 | disposition home or self-care (01) | LOC: MPT 06:30 | PROVIDERS: PCP Family Medicine; Visit Provider Family Medicine | DX: M54.16 Radiculopathy, lumbar region (principal); M54.2 Cervicalgia; G89.29 Other chronic pain | CPT/HCPCS: 97110; 97140 ==

== ENCOUNTER 2024-09-02 06:30 | Outpatient (RCR) | payer MEDICAID, SELFPAY | END 2024-10-01 23:59 | disposition home or self-care (01) | LOC: MPT 06:30 | PROVIDERS: PCP Family Medicine; Visit Provider Family Medicine | DX: M54.16 Radiculopathy, lumbar region (principal); M54.2 Cervicalgia | CPT/HCPCS: 97110 ==

== ENCOUNTER → 2024-10-18 10:31 | Outpatient (BNVA) | payer MEDICAID, SELFPAY | PROVIDERS: PCP Family Medicine; Visit Provider Nurse Practitioner Family | DX: I11.0 Hypertensive heart disease with heart failure (principal); I50.23 Acute on chronic systolic (congestive) heart failure; Z95.810 Presence of automatic (implantable) cardiac defibrillator; I42.0 Dilated cardiomyopathy | CPT/HCPCS: 99214 ==

== ENCOUNTER 2024-11-23 10:09 | Outpatient (CLI) | payer MEDICARE, MEDICAID, SELFPAY | END 2024-11-23 10:10 | disposition home or self-care (01) | LOC: LAB 10:13 | PROVIDERS: PCP Family Medicine; Visit Provider Nurse Practitioner Family | DX: Z95.810 Presence of automatic (implantable) cardiac defibrillator (principal); I50.20 Unspecified systolic (congestive) heart failure | CPT/HCPCS: 36415; 80162 ==

== ENCOUNTER 2024-11-24 16:36 | Outpatient (RCR) | payer MEDICARE, MEDICAID, SELFPAY | END 2024-12-02 23:59 | disposition home or self-care (01) | LOC: MPT 16:36 | PROVIDERS: PCP Family Medicine; Visit Provider Family Medicine | DX: M54.16 Radiculopathy, lumbar region (principal); M54.2 Cervicalgia; G89.29 Other chronic pain | CPT/HCPCS: 97110 ==

== ENCOUNTER → 2024-12-07 11:09 | Outpatient (BNVA) | payer MEDICARE, MEDICAID, SELFPAY | PROVIDERS: PCP Family Medicine; Visit Provider Family Medicine | DX: E11.59 Type 2 diabetes mellitus with other circulatory complications (principal); E11.9 Type 2 diabetes mellitus without complications; I10 Essential (primary) hypertension | CPT/HCPCS: 80053; 80061; 83036; 83735; 85025 ==

== ENCOUNTER 2025-03-02 05:00 | Outpatient (RCR) | payer MEDICARE, MEDICAID, SELFPAY | END 2025-04-01 23:59 | disposition home or self-care (01) | LOC: MPT 05:00 | PROVIDERS: Visit Provider Family Medicine | DX: M54.2 Cervicalgia (principal); M54.50 Low back pain, unspecified; G89.29 Other chronic pain | CPT/HCPCS: 97110; 97162 ==

== ENCOUNTER 2025-04-02 05:00 | Outpatient (RCR) | payer MEDICARE, MEDICAID, SELFPAY | END 2025-05-01 23:59 | disposition home or self-care (01) | LOC: MPT 05:00 | PROVIDERS: Visit Provider Family Medicine | DX: M54.2 Cervicalgia (principal); M54.50 Low back pain, unspecified; G89.29 Other chronic pain | CPT/HCPCS: 97110; 97140 ==

== ENCOUNTER 2025-05-02 05:00 | Outpatient (RCR) | payer MEDICARE, MEDICAID, SELFPAY | END 2025-06-01 23:59 | disposition home or self-care (01) | LOC: MPT 05:00 | PROVIDERS: Visit Provider Family Medicine | DX: M54.2 Cervicalgia (principal); M54.50 Low back pain, unspecified; G89.29 Other chronic pain | CPT/HCPCS: 97110 ==

== ENCOUNTER 2025-06-02 05:00 | Outpatient (RCR) | payer MEDICARE, MEDICAID, SELFPAY | END 2025-07-02 23:59 | disposition home or self-care (01) | LOC: MPT 05:00 | PROVIDERS: PCP Family Medicine; Visit Provider Family Medicine | DX: M54.2 Cervicalgia (principal); M54.50 Low back pain, unspecified; G89.29 Other chronic pain | CPT/HCPCS: 97110; 97140 ==

== ENCOUNTER → 2025-06-06 10:31 | Outpatient (BNVA) | payer MEDICARE, MEDICAID, SELFPAY | PROVIDERS: PCP Family Medicine; Visit Provider Family Medicine | DX: I10 Essential (primary) hypertension (principal); E11.9 Type 2 diabetes mellitus without complications; E11.59 Type 2 diabetes mellitus with other circulatory complications | CPT/HCPCS: 80048; 83036 ==

== ENCOUNTER → 2025-06-15 14:32 | Outpatient (BNVA) | payer MEDICARE, MEDICAID, SELFPAY | PROVIDERS: PCP Family Medicine; Visit Provider Internal Medicine Cardiovascular Disease | DX: I11.0 Hypertensive heart disease with heart failure (principal); I50.20 Unspecified systolic (congestive) heart failure; I42.0 Dilated cardiomyopathy; Z95.810 Presence of automatic (implantable) cardiac defibrillator | CPT/HCPCS: 99214 ==

== ENCOUNTER 2025-07-03 05:00 | Outpatient (RCR) | payer MEDICAID, OTHER, SELFPAY | END 2025-08-01 23:59 | disposition home or self-care (01) | LOC: MPT 05:00 | PROVIDERS: PCP Family Medicine; Visit Provider Family Medicine | DX: M54.2 Cervicalgia (principal); M54.50 Low back pain, unspecified; G89.29 Other chronic pain | CPT/HCPCS: 97110; 97140 ==

== ENCOUNTER 2025-08-30 10:53 | Outpatient (RCR) | payer MEDICAID, OTHER, SELFPAY | END 2025-09-01 23:59 | disposition home or self-care (01) | LOC: MPT 10:53 | PROVIDERS: PCP Family Medicine; Visit Provider Family Medicine | DX: M54.2 Cervicalgia (principal); M54.9 Dorsalgia, unspecified; G89.29 Other chronic pain | CPT/HCPCS: 97110; 97140 ==

== ENCOUNTER 2025-09-20 10:53 | Outpatient (RCR) | payer MEDICAID, OTHER, SELFPAY | END 2025-10-01 23:59 | disposition home or self-care (01) | LOC: MPT 10:53 | PROVIDERS: PCP Family Medicine; Visit Provider Family Medicine | DX: M54.2 Cervicalgia (principal); M54.9 Dorsalgia, unspecified; G89.29 Other chronic pain | CPT/HCPCS: 97110; 97140 ==

== ENCOUNTER → 2025-10-18 13:55 | Outpatient (BNVA) | payer MEDICAID, OTHER, SELFPAY | PROVIDERS: PCP Family Medicine; Visit Provider Family Medicine | DX: R30.0 Dysuria (principal) | CPT/HCPCS: 81000; 87086 ==

== ENCOUNTER 2025-10-31 10:44 | Outpatient (RCR) | payer MEDICAID, OTHER, SELFPAY | END 2025-11-01 23:59 | disposition home or self-care (01) | LOC: MPT 10:44 | PROVIDERS: PCP Family Medicine; Visit Provider Family Medicine | DX: M54.2 Cervicalgia (principal); M54.50 Low back pain, unspecified; G89.29 Other chronic pain | CPT/HCPCS: 97110; 97140 ==